=== PATIENT | male | born 1975 | race Caucasian/White ===

== ENCOUNTER → 2016-10-26 | Outpatient (CLI) | payer BC ==
--- NOTE | 2016-11-01 13:21 | P.ARTDOP ---
Arterial Doppler LOWER EXTREMITY ARTERIAL DOPPLER: DATE OF SERVICE: 10/26/2016 Reason for study: Leg pain. Doppler waveforms: Multiphasic bilaterally throughout. Pulse volume recording: Normal configuration. Pressure gradients: None. Ankle-brachial indices: Cannot exclude. Toe pressures: 158 on the right, 138 on the left Impression: Normal flow study. Suspect some degree of nonhemodynamically significant vessel wall calcification.
== END | disposition home or self-care (01) ==
LOC: RADUSWWP 08:53
PROVIDERS: ATTEND Internal Medicine Infectious Disease
DX: M79.605 Pain in left leg (principal); E11.621 Type 2 diabetes mellitus with foot ulcer; L97.529 Non-pressure chronic ulcer of other part of left foot with unspecified severity; E11.69 Type 2 diabetes mellitus with other specified complication; M86.8X7 Other osteomyelitis, ankle and foot
CPT/HCPCS: 93923

== ENCOUNTER → 2016-11-02 | Outpatient (CLI) | payer BC ==
--- NOTE | 2016-11-02 09:39 | MR ---
EXAMINATION TYPE: MR foot LT wo/w con DATE OF EXAM: 11/02/2016 9:22 AM COMPARISON: Prior MRI left foot May 24, 2016. HISTORY: osteomyelitis lt foot, ulcer 5th metatarsal area CONTRAST: Standard multiplanar, multisequence MRI departmental protocol utilizing 20 mL intravenous MultiHance gadolinium contrast. FINDINGS: Along plantar surface there is loss of normal subcutaneous fat with heterogeneous tissue th at does not show definitive postcontrast enhancement centered at fifth metatarsal head likely reflect ing chronic ulcer. Adjacent fifth metatarsal head shows some heterogeneous increased T2 signal or naresh ma most pronounced along the plantar surface seen best on axial image 5 and coronal image 22, some va dee enhancement at this level is felt present on coronal image 22 series 1001, acute osteomyelitis at this level does cannot be excluded. Well-defined cortical margin is also loss versus adjacent toes. There has been amputation of fifth toe involving proximal and distal phalanx. There is some heterogeneous fluid signal involving second and third metatarsals. No well-formed fluid collection is seen. Bone marrow signal intensity remainder of left foot is felt within normal limits without abnormal enhancement identified. Marked flexion in the second through fourth toes is redemon strated. IMPRESSION: Amputation fifth toe with chronic ulceration base of fifth metatarsal redemonstrated. Some cortical i rregularity with small area of osseous edema and vague enhancement involving the plantar aspect of th e fifth metatarsal head is felt present on current study, thus acute osteomyelitis at this level reyes ot be excluded.
== END | disposition home or self-care (01) ==
LOC: RADMRIMAIN 08:05
PROVIDERS: ATTEND Internal Medicine Infectious Disease
DX: E11.621 Type 2 diabetes mellitus with foot ulcer (principal); L97.529 Non-pressure chronic ulcer of other part of left foot with unspecified severity
CPT/HCPCS: 73720; A9577

== ENCOUNTER → 2017-01-08 | Outpatient (CLI) | payer BC ==
[2017-01-08 14:46] VITALS: BP 144/84; PULSE 87; RESP 14; TEMP 98.2; BMI 48.9
--- NOTE | 2017-01-08 15:18 | P.HPBAR ---
Bariatric H&P - History & Physicial H&P Date: 01/08/17 History & Physicial: Visit/CC: sleeve consult Patient initial contact: Initial weight: 172.773 kg Initial weight in pounds: 380.90 Height: 6 ft 2 in Initial BMI: 48.9 Last weight: Current weight: 172.773 kg Current weight in pounds: 380.90 Current BMI: 48.9 [place] body weight (based on NIH guidelines): 86.183 kg Excess body weight loss: 0.0% The patient is a 41 year-old M who presents for Bariatric Assessment. The patient presents today for sleeve gastrectomy preoperative consultation. He was initially seen approximately year ago. He is currently working on getting his preoperative progress notes together. He has not been scheduled for a psychological exam. The patient has a good understanding of the sleeve gastrectomy. His has had both lap band and sleeve gastrectomy. Review of Systems Constitutional: Reports as per HPI Past Medical History Past Medical History: Diabetes Mellitus, GERD/Reflux, Hypertension Additional Past Medical History / Comment(s): Wound lt foot (wound clinic treatment with complete 01/01/17), GERD History of Any Multi-Drug Resistant Organisms: MRSA Year Discovered:: 02/22/2016 MDRO Source:: left foot Past Surgical History: No Surgical Hx Reported Additional Past Surgical History / Comment(s): debridement in the groin area due to non healing wound, amputation of smallest toe on lt foot, amputation of the 4th toe on the right foot Past Anesthesia/Blood Transfusion Reactions: No Reported Reaction Past Psychological History: No Psychological Hx Reported Additional Psychological History / Comment(s): . Smoking Status: Never smoker Past Alcohol Use History: Occasional Past Drug Use History: None Reported - Past Family History Father Family Medical History: Cancer Mother Family Medical History: Coronary Artery Disease (CAD), Deep Vein Thrombosis (DVT ) Surgical - Exam Vital Signs Temp Pulse Resp BP 98.2 F 87 14 144/84 01/08/17 14:43 01/08/17 14:43 01/08/17 14:43 01/08/17 14:43 - General well developed, no distress - Eyes PERRL Bariatric Assessment & Plan Plan: The patient will undergo EGD in anticipation of his laparoscopic sleeve yesterday. I went over the risks and benefits of procedure. I discussed with possible conversion O procedure as well as injury to the stomach, liver and spleen. I've also discussed and possible issues such as staple line disruption , bleeding or perforation. Bariatric Checklist Checklist: Plan: Checklist: EGD: 1. Hiatal hernia: 2. H. Pylori: HgbA1c: Vitamin D: Smoking: Never smoker Primary care physician referral: [facility] Psychiatry clearance: Cardiology clearance: Sleep study: Diet journal: VTE risk score: VTE risk level: Rehab needs at discharge:
[2017-01-08 15:46] LABS: CH 27.9; CHCM 33.1; HCT 41.8 % (39.0-53.0); HDW 3.38; HGB 14.1 gm/dL (13.0-17.5); MCH 28.5 pg (25.0-35.0); MCHC 33.7 g/dL (31.0-37.0); MCV 84.7 fL (80.0-100.0); Mean Platelet Volume 8.8; RBC 4.93 m/uL (4.30-5.90); RDW 14.7 % (11.5-15.5); WBC 7.7 k/uL (3.8-10.6)
[2017-01-08 21:07] LABS: Hemoglobin A1C 5.5 % (4.2-6.1)
== END | disposition home or self-care (01) ==
LOC: BARWHC3 13:43
PROVIDERS: ATTEND Surgery
DX: Z01.818 Encounter for other preprocedural examination (principal); Z68.42 Body mass index [BMI] 45.0-49.9, adult; Z86.14 Personal history of Methicillin resistant Staphylococcus aureus infection
CPT/HCPCS: 36415; 83036; 85027; 93005; 99201

== ENCOUNTER → 2017-05-07 | Outpatient (CLI) | payer BC ==
[2017-05-07 11:59] VITALS: BMI 49.7
== END | disposition home or self-care (01) ==
LOC: BARWHC3 08:43
PROVIDERS: ATTEND Surgery
DX: E66.01 Morbid (severe) obesity due to excess calories (principal); Z71.3 Dietary counseling and surveillance; Z68.42 Body mass index [BMI] 45.0-49.9, adult
CPT/HCPCS: 97804

== ENCOUNTER → 2017-09-03 | Outpatient (CLI) | payer BC ==
[2017-09-03 13:58] VITALS: BP 119/77; PULSE 90; RESP 16; TEMP 98; BMI 44.1
--- NOTE | 2017-09-03 14:47 | P.HPBAR ---
Bariatric H&P - History & Physicial H&P Date: 09/03/17 History & Physicial: Visit/CC: sleeve follow up Patient initial contact: Initial weight: 172.773 kg Initial weight in pounds: 380.90 Height: 6 ft 2 in Initial BMI: 48.9 Last weight: 379 Current weight: 156.234 kg Current weight in pounds: 344.00 Current BMI: 44.1 [place] body weight (based on NIH guidelines): 86.183 kg Excess body weight loss: 19.3% The patient is a 42 year-old M who presents for Bariatric Assessment. Patient presents for postoperative follow-up. He's lost approximately 35 pounds since surgery. Has no complaints. He has had some minimal GERD. Past Medical History Past Medical History: Diabetes Mellitus, GERD/Reflux, Hypertension Additional Past Medical History / Comment(s): Wound lt foot (wound clinic treatment with complete 01/01/17)-current reblistered, GERD History of Any Multi-Drug Resistant Organisms: MRSA Year Discovered:: 02/22/2016 MDRO Source:: left foot Past Surgical History: Bariatric Surgery, Orthopedic Surgery Additional Past Surgical History / Comment(s): debridement in the groin area due to non healing wound, amputation of smallest toe on lt foot, amputation of the 4th toe on the right foot Past Anesthesia/Blood Transfusion Reactions: No Reported Reaction Past Psychological History: Depression Additional Psychological History / Comment(s): Dealing with depression seeing psycotherapist and on Zoloft with improvement Smoking Status: Never smoker Past Alcohol Use History: Occasional Past Drug Use History: None Reported - Past Family History Brother(s) Family Medical History: Cancer Father Family Medical History: Cancer Mother Family Medical History: Coronary Artery Disease (CAD), Deep Vein Thrombosis (DVT ) Surgical - Exam Vital Signs Temp Pulse Resp BP 98.0 F 90 16 119/77 09/03/17 13:54 09/03/17 13:54 09/03/17 13:54 09/03/17 13:54 - General well developed, no distress - Eyes PERRL - ENT normal pinna - Neck no masses - Respiratory normal expansion - Cardiovascular Rhythm: regular - Abdomen Abdomen: soft, non tender Bariatric Assessment & Plan Plan: Postoperative gastric sleeve. Patient is doing fairly well. He's had some minimal GERD. Bariatric Checklist Checklist: Plan: Checklist: EGD: 1. Hiatal hernia: 2. H. Pylori: HgbA1c: Vitamin D: Smoking: Never smoker Primary care physician referral: [facility] Psychiatry clearance: Cardiology clearance: Sleep study: Diet journal: VTE risk score: VTE risk level: Rehab needs at discharge:
== END | disposition home or self-care (01) ==
LOC: BARWHC3 13:29
PROVIDERS: ATTEND Surgery
DX: Z09 Encounter for follow-up examination after completed treatment for conditions other than malignant neoplasm (principal); E11.9 Type 2 diabetes mellitus without complications; K21.9 Gastro-esophageal reflux disease without esophagitis; I10 Essential (primary) hypertension; F32.9 Major depressive disorder, single episode, unspecified; Z98.84 Bariatric surgery status
CPT/HCPCS: 97803; 99211

== ENCOUNTER → 2017-10-22 | Outpatient (CLI) | payer BC ==
[2017-10-22 15:56] VITALS: BP 122/79; PULSE 87; RESP 16; TEMP 98.5; BMI 41.2
--- NOTE | 2017-10-22 17:13 | P.HPBAR ---
Bariatric H&P - History & Physicial H&P Date: 10/22/17 History & Physicial: Visit/CC: sleeve follow up Patient initial contact: Initial weight: 172.773 kg Initial weight in pounds: 380.90 Height: 6 ft 2 in Initial BMI: 48.9 Last weight: Current weight: 145.603 kg Current weight in pounds: 321.00 Current BMI: 41.2 [place] body weight (based on NIH guidelines): 86.183 kg Excess body weight loss: 31.3% The patient is a 42 year-old M who presents for Bariatric Assessment. The patient presents today for sleeve yesterday follow-up. He's lost another 12 pounds since last visit. He's had some minimal GERD. Past Medical History Past Medical History: Diabetes Mellitus, GERD/Reflux, Hypertension Additional Past Medical History / Comment(s): Wound lt foot (wound clinic treatment with complete 01/01/17)-current reblistered, GERD History of Any Multi-Drug Resistant Organisms: MRSA Year Discovered:: 02/22/2016 MDRO Source:: left foot Past Surgical History: Bariatric Surgery, Orthopedic Surgery Additional Past Surgical History / Comment(s): debridement in the groin area due to non healing wound, amputation of smallest toe on lt foot, amputation of the 4th toe on the right foot Past Anesthesia/Blood Transfusion Reactions: No Reported Reaction Past Psychological History: Depression Additional Psychological History / Comment(s): Dealing with depression seeing psycotherapist and on Zoloft with improvement Smoking Status: Never smoker Past Alcohol Use History: Occasional Past Drug Use History: None Reported - Past Family History Brother(s) Family Medical History: Cancer Father Family Medical History: Cancer Mother Family Medical History: Coronary Artery Disease (CAD), Deep Vein Thrombosis (DVT ) Surgical - Exam Vital Signs Temp Pulse Resp BP 98.5 F 87 16 122/79 10/22/17 15:54 10/22/17 15:54 10/22/17 15:54 10/22/17 15:54 - General well developed, no distress - Eyes PERRL - ENT normal pinna - Neck no masses - Respiratory normal expansion, normal respiratory effort - Cardiovascular Rhythm: regular - Abdomen Abdomen: soft, non tender Bariatric Assessment & Plan Plan: Patient is doing well status post sleeve yesterday. His GERD symptoms are minimal and observed. He'll follow-up in one month. Bariatric Checklist Checklist: Plan: Checklist: EGD: 1. Hiatal hernia: 2. H. Pylori: HgbA1c: Vitamin D: Smoking: Never smoker Primary care physician referral: [facility] Psychiatry clearance: Cardiology clearance: Sleep study: Diet journal: VTE risk score: VTE risk level: Rehab needs at discharge:
== END | disposition home or self-care (01) ==
LOC: BARWHC3 15:23
PROVIDERS: ATTEND Surgery
DX: Z09 Encounter for follow-up examination after completed treatment for conditions other than malignant neoplasm (principal); E11.9 Type 2 diabetes mellitus without complications; I10 Essential (primary) hypertension; F32.9 Major depressive disorder, single episode, unspecified; Z98.84 Bariatric surgery status
CPT/HCPCS: 99211

== ENCOUNTER → 2017-11-06 | Outpatient (CLI) | payer BC ==
[2017-11-06 08:19] LABS: Calcium 10.2 mg/dL (8.4-10.2); Potassium 5.9 mmol/L (3.5-5.1)
== END | disposition home or self-care (01) ==
LOC: LABWHC1 07:23
PROVIDERS: ATTEND Internal Medicine Infectious Disease
DX: E87.5 Hyperkalemia (principal)
CPT/HCPCS: 36415; 80048

== ENCOUNTER → 2017-11-14 | Outpatient (CLI) | payer SELFPAY ==
--- NOTE | 2017-11-15 07:08 | US ---
EXAMINATION TYPE: US venous doppler duplex LE DATE OF EXAM: 11/14/2017 2:22 PM COMPARISON: NONE CLINICAL HISTORY: M79.605 Pain in Left Leg. Wound lateral left foot x 2 weeks. Diabetes. Intermittent leg pain bilaterally LOWER EXTREMITY VENOUS INSUFFICIENCY SIDE PERFORMED: bilateral 1) Color flow is present and patency is documented in the following vessels. No DVT or SVT is noted . EIV Common Femoral Vein Deep Femoral Vein Femoral Vein Popliteal Vein Proximal Calf Veins Greater Saph Vein Upper Small Saph Vein 2) There is venous reflux noted at the following venous levels: right greater saph. vein, right CFV , left CFV, left small saph. vein, left popliteal vein mid and lower IMPRESSION: 1. No sonographic evidence of deep venous thrombosis or superficial venous thrombosis within the lowe r extremities. 2. Venous reflux indicating insufficiency within the right greater saphenous vein, right common femor al vein, left common femoral vein, left small saphenous vein in the left popliteal vein in its mid an d lower portions.
--- NOTE | 2017-11-21 10:20 | P.ARTDOP ---
Arterial Doppler LOWER EXTREMITY ARTERIAL DOPPLER: DATE OF SERVICE: 11/14/2017 Reason for study: Ulcer left foot. Doppler waveforms: Multiphasic bilaterally throughout. Pulse volume recording: Normal configuration. Pressure gradients: None. Ankle-brachial indices: Cannot occlude on the right 1.46 on the left.. Toe pressures: 144 on the right, 112 on the left Impression: Normal study in regards to flow. Falsely elevated ankle pressures probably related to nonhemodynamically significant calcific wall disease..
== END | disposition home or self-care (01) ==
LOC: RADUSWWP 13:46
PROVIDERS: ATTEND Internal Medicine Infectious Disease
DX: I87.2 Venous insufficiency (chronic) (peripheral) (principal); M79.605 Pain in left leg
CPT/HCPCS: 93923; 93970

== ENCOUNTER → 2017-11-19 | Outpatient (CLI) | payer BC ==
[2017-11-19 13:17] VITALS: BP 140/87; PULSE 73; RESP 16; TEMP 98.1; BMI 40.3
--- NOTE | 2017-11-19 15:54 | P.HPBAR ---
Bariatric H&P - History & Physicial H&P Date: 11/19/17 History & Physicial: Visit/CC: sleeve follow-up Patient initial contact: Initial weight: 172.773 kg Initial weight in pounds: 380.90 Height: 6 ft 2 in Initial BMI: 48.9 Last weight: Current weight: 142.428 kg Current weight in pounds: 314.00 Current BMI: 40.3 [place] body weight (based on NIH guidelines): 86.183 kg Excess body weight loss: 35.0% The patient is a 42 year-old M who presents for Bariatric Assessment. Patient resents today for sleeve gastric a fall. He is doing quite well. He has had some minimal GERD. Past Medical History Past Medical History: Diabetes Mellitus, GERD/Reflux, Hypertension Additional Past Medical History / Comment(s): Wound lt foot (wound clinic treatment with complete 01/01/17)-current reblistered, GERD History of Any Multi-Drug Resistant Organisms: MRSA Year Discovered:: 02/22/2016 MDRO Source:: left foot Past Surgical History: Bariatric Surgery, Orthopedic Surgery Additional Past Surgical History / Comment(s): debridement in the groin area due to non healing wound, amputation of smallest toe on lt foot, amputation of the 4th toe on the right foot Past Anesthesia/Blood Transfusion Reactions: No Reported Reaction Past Psychological History: Depression Additional Psychological History / Comment(s): Dealing with depression seeing psycotherapist and on Zoloft with improvement Smoking Status: Never smoker Past Alcohol Use History: Occasional Past Drug Use History: None Reported - Past Family History Brother(s) Family Medical History: Cancer Father Family Medical History: Cancer Mother Family Medical History: Coronary Artery Disease (CAD), Deep Vein Thrombosis (DVT ) Surgical - Exam Vital Signs Temp Pulse Resp BP 98.1 F 73 16 140/87 11/19/17 13:14 11/19/17 13:14 11/19/17 13:14 11/19/17 13:14 - General well developed, no distress - Eyes PERRL - ENT normal pinna - Neck no masses - Respiratory normal expansion - Cardiovascular Rhythm: regular - Abdomen Abdomen: soft, non tender Bariatric Assessment & Plan Plan: The patient is status post sleeve gastrectomy. He is doing quite well. He'll follow-up in 4 weeks. His GERD is minimal and will be observed. Bariatric Checklist Checklist: Plan: Checklist: EGD: 1. Hiatal hernia: 2. H. Pylori: HgbA1c: Vitamin D: Smoking: Never smoker Primary care physician referral: [facility] Psychiatry clearance: Cardiology clearance: Sleep study: Diet journal: VTE risk score: VTE risk level: Rehab needs at discharge:
== END | disposition home or self-care (01) ==
LOC: BARWHC3 11:57
PROVIDERS: ATTEND Surgery
DX: Z09 Encounter for follow-up examination after completed treatment for conditions other than malignant neoplasm (principal); E66.01 Morbid (severe) obesity due to excess calories; K21.9 Gastro-esophageal reflux disease without esophagitis; E11.9 Type 2 diabetes mellitus without complications; I10 Essential (primary) hypertension; F32.9 Major depressive disorder, single episode, unspecified; F10.20 Alcohol dependence, uncomplicated; Z98.890 Other specified postprocedural states; Z98.84 Bariatric surgery status; Z68.41 Body mass index [BMI] 40.0-44.9, adult
CPT/HCPCS: 97803; 99211

== ENCOUNTER → 2017-12-17 | Outpatient (CLI) | payer BC ==
[2017-12-17 13:05] VITALS: BP 125/80; PULSE 77; RESP 16; TEMP 98.2; BMI 39.1
--- NOTE | 2017-12-17 14:38 | P.HPBAR ---
Bariatric H&P - History & Physicial H&P Date: 12/17/17 History & Physicial: Visit/CC: sleeve follow-up Patient initial contact: Initial weight: 172.773 kg Initial weight in pounds: 380.90 Height: 6 ft 2 in Initial BMI: 48.9 Last weight: Current weight: 138.346 kg Current weight in pounds: 305.00 Current BMI: 39.1 [place] body weight (based on NIH guidelines): 86.183 kg Excess body weight loss: 39.7% The patient is a 42 year-old M who presents for Bariatric Assessment. The patient presents today for sleeve gastrectomy follow-up. He has done well. He lost another 10 pounds. He's had some minimal GERD. Past Medical History Past Medical History: Diabetes Mellitus, GERD/Reflux, Hypertension Additional Past Medical History / Comment(s): Wound lt foot (wound clinic treatment with complete 01/01/17)-current reblistered, GERD History of Any Multi-Drug Resistant Organisms: MRSA Year Discovered:: 02/22/2016 MDRO Source:: left foot Past Surgical History: Bariatric Surgery, Orthopedic Surgery Additional Past Surgical History / Comment(s): debridement in the groin area due to non healing wound, amputation of smallest toe on lt foot, amputation of the 4th toe on the right foot Past Anesthesia/Blood Transfusion Reactions: No Reported Reaction Smoking Status: Never smoker - Past Family History Brother(s) Family Medical History: Cancer Father Family Medical History: Cancer Mother Family Medical History: Coronary Artery Disease (CAD), Deep Vein Thrombosis (DVT ) Surgical - Exam Vital Signs Temp Pulse Resp BP 98.2 F 77 16 125/80 12/17/17 13:03 12/17/17 13:03 12/17/17 13:03 12/17/17 13:03 - General well developed, no distress - Eyes PERRL - ENT normal pinna, normal mucosa - Neck no masses - Respiratory normal expansion - Cardiovascular Rhythm: regular - Abdomen Abdomen: soft, non tender Bariatric Assessment & Plan Plan: Sessile sleeve yesterday. Patient is doing quite well. His weight loss has been excellent. His GERD is minimal and will be observed. He will follow-up in one month. Bariatric Checklist Checklist: Plan: Checklist: EGD: 1. Hiatal hernia: 2. H. Pylori: HgbA1c: Vitamin D: Smoking: Never smoker Primary care physician referral: [facility] Psychiatry clearance: Cardiology clearance: Sleep study: Diet journal: VTE risk score: VTE risk level: Rehab needs at discharge:
== END | disposition home or self-care (01) ==
LOC: BARWHC3 12:42
PROVIDERS: ATTEND Surgery
DX: Z48.815 Encounter for surgical aftercare following surgery on the digestive system (principal); K21.9 Gastro-esophageal reflux disease without esophagitis; Z98.84 Bariatric surgery status
CPT/HCPCS: 99211

== ENCOUNTER → 2018-02-11 | Outpatient (CLI) | payer BC ==
[2018-02-11 14:14] VITALS: BMI 39.0
[2018-02-11 14:20] VITALS: BP 117/81; PULSE 71; TEMP 98.5
--- NOTE | 2018-02-11 15:58 | P.HPBAR ---
Bariatric H&P - History & Physicial H&P Date: 02/11/18 History & Physicial: Visit/CC: six month follow up Patient initial contact: Initial weight: 172.773 kg Initial weight in pounds: 380.90 Height: 6 ft 2 in Initial BMI: 48.9 Last weight: 305 Current weight: 137.983 kg Current weight in pounds: 304.20 Current BMI: 39.0 [place] body weight (based on NIH guidelines): 86.183 kg Excess body weight loss: 40.1% The patient is a 42 year-old M who presents for Bariatric Assessment. Patient presents today for sleeve gastric follow-up. He's had some minimal GERD. He has no real complaints. His weight has remained stable. Past Medical History Past Medical History: Diabetes Mellitus, GERD/Reflux, Hypertension Additional Past Medical History / Comment(s): Wound lt foot (wound clinic treatment with complete 01/01/17)-current reblistered, GERD History of Any Multi-Drug Resistant Organisms: MRSA Year Discovered:: 02/22/2016 MDRO Source:: left foot Past Surgical History: Bariatric Surgery, Orthopedic Surgery Additional Past Surgical History / Comment(s): debridement in the groin area due to non healing wound, amputation of smallest toe on lt foot, amputation of the 4th toe on the right foot Past Anesthesia/Blood Transfusion Reactions: No Reported Reaction Past Psychological History: Depression Additional Psychological History / Comment(s): Dealing with depression seeing psycotherapist and on Zoloft with improvement Smoking Status: Never smoker Past Alcohol Use History: Occasional Past Drug Use History: None Reported - Past Family History Brother(s) Family Medical History: Cancer Father Family Medical History: Cancer Mother Family Medical History: Coronary Artery Disease (CAD), Deep Vein Thrombosis (DVT ) Surgical - Exam Vital Signs Temp Pulse BP 98.5 F 71 117/81 02/11/18 14:18 02/11/18 14:18 02/11/18 14:18 - General well developed, no distress - Eyes PERRL - Abdomen Abdomen: soft, non tender Bariatric Assessment & Plan Plan: Status post sleeve gastrectomy. Patient is doing fairly well. He'll see the dietitian today in order to improve his weight loss. His current BMI is 39. Bariatric Checklist Checklist: Plan: Checklist: EGD: 1. Hiatal hernia: 2. H. Pylori: HgbA1c: Vitamin D: Smoking: Never smoker Primary care physician referral: [facility] Psychiatry clearance: Cardiology clearance: Sleep study: Diet journal: VTE risk score: VTE risk level: Rehab needs at discharge:
== END | disposition home or self-care (01) ==
LOC: BARWHC3 13:16
PROVIDERS: ATTEND Surgery
DX: Z09 Encounter for follow-up examination after completed treatment for conditions other than malignant neoplasm (principal); K21.9 Gastro-esophageal reflux disease without esophagitis; E66.01 Morbid (severe) obesity due to excess calories; E11.9 Type 2 diabetes mellitus without complications; I10 Essential (primary) hypertension; F32.9 Major depressive disorder, single episode, unspecified; S91.302D Unspecified open wound, left foot, subsequent encounter; Z98.84 Bariatric surgery status; Z98.890 Other specified postprocedural states; Z68.39 Body mass index [BMI] 39.0-39.9, adult; Z89.422 Acquired absence of other left toe(s); Z89.421 Acquired absence of other right toe(s)
CPT/HCPCS: 97803; 99211

== ENCOUNTER → 2018-03-18 | Outpatient (CLI) | payer BC ==
--- NOTE | 2018-03-18 16:29 | P.HPBAR ---
Bariatric H&P - History & Physicial H&P Date: 03/18/18 History & Physicial: Visit/CC: Patient initial contact: Initial weight: 172.773 kg Initial weight in pounds: Height: Initial BMI: Last weight: 304 Current weight: 298 Current weight in pounds: Current BMI: [place] body weight (based on NIH guidelines): Excess body weight loss: The patient is a 42 year-old M who presents for Bariatric Assessment. Patient presents today for sleeve gastric a fall. He's had some minimal GERD symptoms. He is an excellent weight loss. Past Medical History Past Medical History: Diabetes Mellitus, GERD/Reflux, Hypertension Additional Past Medical History / Comment(s): Wound lt foot (wound clinic treatment with complete 01/01/17)-current reblistered, GERD History of Any Multi-Drug Resistant Organisms: MRSA Year Discovered:: 02/22/2016 MDRO Source:: left foot Past Surgical History: Bariatric Surgery, Orthopedic Surgery Additional Past Surgical History / Comment(s): debridement in the groin area due to non healing wound, amputation of smallest toe on lt foot, amputation of the 4th toe on the right foot Past Anesthesia/Blood Transfusion Reactions: No Reported Reaction Past Psychological History: Depression Additional Psychological History / Comment(s): Dealing with depression seeing psycotherapist and on Zoloft with improvement Smoking Status: Never smoker Past Alcohol Use History: Occasional Past Drug Use History: None Reported - Past Family History Brother(s) Family Medical History: Cancer Father Family Medical History: Cancer Mother Family Medical History: Coronary Artery Disease (CAD), Deep Vein Thrombosis (DVT ) Surgical - Exam - General well developed, no distress - Abdomen Abdomen: soft, non tender Bariatric Assessment & Plan Plan: The patient is doing well. His GERD symptoms are minimal and will be observed. He'll follow-up in one month. Bariatric Checklist Checklist: Plan: Checklist: EGD: 1. Hiatal hernia: 2. H. Pylori: HgbA1c: Vitamin D: Smoking: Never smoker Primary care physician referral: [facility] Psychiatry clearance: Cardiology clearance: Sleep study: Diet journal: VTE risk score: VTE risk level: Rehab needs at discharge:
[2018-03-18 17:30] VITALS: BP 113/72; PULSE 63; TEMP 97.7; BMI 38.2
== END | disposition home or self-care (01) ==
LOC: BARWHC3 13:18
PROVIDERS: ATTEND Surgery
DX: Z48.815 Encounter for surgical aftercare following surgery on the digestive system (principal); K21.9 Gastro-esophageal reflux disease without esophagitis; Z98.84 Bariatric surgery status
CPT/HCPCS: 99211

== ENCOUNTER → 2018-06-24 | Outpatient (CLI) | payer BC ==
[2018-06-24 14:48] VITALS: BP 152/90; PULSE 61; RESP 16; TEMP 98.9; BMI 35.4
--- NOTE | 2018-06-24 15:12 | P.HPBAR ---
Bariatric H&P - History & Physicial H&P Date: 06/24/18 History & Physicial: Visit/CC: sleeve follow-up Patient initial contact: Initial weight: 172.773 kg Initial weight in pounds: 380.90 Height: 6 ft 2 in Initial BMI: 48.9 Last weight: 295 Current weight: 125.191 kg Current weight in pounds: 276.00 Current BMI: 35.4 [place] body weight (based on NIH guidelines): 86.183 kg Excess body weight loss: 54.9% The patient is a 42 year-old M who presents for Bariatric Assessment. Patient presents today for sleeve gastrectomy fall. He's had some minimal GERD. He's had excellent weight loss. His current BMI is 35. Past Medical History Past Medical History: Diabetes Mellitus, GERD/Reflux, Hypertension Additional Past Medical History / Comment(s): Wound lt foot (wound clinic treatment with complete 01/01/17)-current reblistered, GERD History of Any Multi-Drug Resistant Organisms: MRSA Year Discovered:: 02/22/2016 MDRO Source:: left foot Past Surgical History: Bariatric Surgery, Orthopedic Surgery Additional Past Surgical History / Comment(s): debridement in the groin area due to non healing wound, amputation of smallest toe on lt foot, amputation of the 4th toe on the right foot Past Anesthesia/Blood Transfusion Reactions: No Reported Reaction Past Psychological History: Depression Additional Psychological History / Comment(s): Dealing with depression seeing psycotherapist and on Zoloft with improvement Smoking Status: Never smoker Past Alcohol Use History: Occasional Past Drug Use History: None Reported - Past Family History Brother(s) Family Medical History: Cancer Father Family Medical History: Cancer Mother Family Medical History: Coronary Artery Disease (CAD), Deep Vein Thrombosis (DVT ) Surgical - Exam Vital Signs Temp Pulse Resp BP 98.9 F 61 16 152/90 06/24/18 14:45 06/24/18 14:45 06/24/18 14:45 06/24/18 14:45 - General well developed, no distress - Eyes PERRL - ENT normal pinna - Neck no masses - Respiratory normal expansion - Cardiovascular Rhythm: regular - Abdomen Abdomen: soft, non tender Bariatric Assessment & Plan Plan: Status post sleeve gastrectomy. Patient did quite well. His GERD is minimal and will be observed. Bariatric Checklist Checklist: Plan: Checklist: EGD: 1. Hiatal hernia: 2. H. Pylori: HgbA1c: Vitamin D: Smoking: Never smoker Primary care physician referral: [facility] Psychiatry clearance: Cardiology clearance: Sleep study: Diet journal: VTE risk score: VTE risk level: Rehab needs at discharge:
== END ==
LOC: BARWHC3 14:15
PROVIDERS: ATTEND Surgery
DX: Z48.815 Encounter for surgical aftercare following surgery on the digestive system (principal); K21.9 Gastro-esophageal reflux disease without esophagitis; Z98.84 Bariatric surgery status
CPT/HCPCS: 99211

== ENCOUNTER → 2018-08-12 | Outpatient (CLI) | payer BC ==
[2018-08-12 13:23] VITALS: BP 129/76; PULSE 68; TEMP 98.1; BMI 36.1
[2018-08-12 15:14] LABS: HCT 45.3 % (39.0-53.0); HGB 14.6 gm/dL (13.0-17.5); MCHC 32.3 g/dL (31.0-37.0); MCV 89.9 fL (80.0-100.0); Mean Platelet Volume 8.5; Platelet Count 104 k/uL (150-450); RBC 5.04 m/uL (4.30-5.90); RDW 14.3 % (11.5-15.5)
--- NOTE | 2018-08-12 15:28 | P.HPBAR ---
Bariatric H&P - History & Physicial H&P Date: 08/12/18 History & Physicial: Visit/CC: one year follow up Patient initial contact: Initial weight: 172.773 kg Initial weight in pounds: 380.90 Height: 6 ft 2 in Initial BMI: 48.9 Last weight: Current weight: 127.459 kg Current weight in pounds: 281.00 Current BMI: 36.1 [place] body weight (based on NIH guidelines): 86.183 kg Excess body weight loss: 52.3% The patient is a 43 year-old M who presents for Bariatric Assessment. The patient presents today for sleeve gastrectomy follow-up. He's had some mild GERD symptoms. He states his arthritis has improved. Past Medical History Past Medical History: Diabetes Mellitus, GERD/Reflux, Hypertension Additional Past Medical History / Comment(s): Wound lt foot (wound clinic treatment with complete 01/01/17)-current reblistered, GERD History of Any Multi-Drug Resistant Organisms: MRSA Year Discovered:: 02/22/2016 MDRO Source:: left foot Past Surgical History: Bariatric Surgery, Orthopedic Surgery Additional Past Surgical History / Comment(s): debridement in the groin area due to non healing wound, amputation of smallest toe on lt foot, amputation of the 4th toe on the right foot Past Anesthesia/Blood Transfusion Reactions: No Reported Reaction Past Psychological History: Depression Additional Psychological History / Comment(s): Dealing with depression seeing psycotherapist and on Zoloft with improvement Smoking Status: Never smoker Past Alcohol Use History: Occasional Past Drug Use History: None Reported - Past Family History Brother(s) Family Medical History: Cancer Father Family Medical History: Cancer Mother Family Medical History: Coronary Artery Disease (CAD), Deep Vein Thrombosis (DVT ) Surgical - Exam Vital Signs Temp Pulse BP 98.1 F 68 129/76 08/12/18 13:21 08/12/18 13:21 08/12/18 13:21 - General well developed, no distress - Eyes PERRL - ENT normal pinna - Neck no masses - Respiratory normal expansion - Cardiovascular Rhythm: regular - Abdomen Abdomen: soft, non tender Results - Labs 08/12/18 14:24 Abnormal Lab Results - Last 24 Hours (Table) 08/12/18 Range/Units 14:24 Plt Count 104 L (150-450) k/uL Bariatric Assessment & Plan Plan: Status post sleeve gastrectomy. Patient has an excellent weight loss. His weight loss has stabilized. His GERD is minimal old observed. His arthritis is improving. Bariatric Checklist Checklist: Plan: Checklist: EGD: 1. Hiatal hernia: 2. H. Pylori: HgbA1c: Vitamin D: Smoking: Never smoker Primary care physician referral: ijeoma Psychiatry clearance: Cardiology clearance: Sleep study: Diet journal: VTE risk score: VTE risk level: Rehab needs at discharge:
[2018-08-12 20:06] LABS: Albumin 4.3 g/dL (3.80-4.90); Albumin/Globulin Ratio 1.79 (1.20-2.10); Anion Gap 6.7 mmol/L (4.00-12.00); Calcium 9.2 mg/dL (8.7-10.3); Carbon Dioxide 26.3 mmol/L (21.6-31.8); Globulin 2.4 g/dL (2.1-3.7); Potassium 5.7 mmol/L (3.5-5.5); Total Bilirubin 0.3 mg/dL (0.2-1.2); Total Protein 6.7 g/dL (6.2-8.2)
[2018-08-12 20:11] LABS: Vitamin D 25 Hydroxy 41.9 ng/mL (30.0-100.0)
== END | disposition home or self-care (01) ==
LOC: BARWHC3 12:25
PROVIDERS: ATTEND Surgery
DX: Z09 Encounter for follow-up examination after completed treatment for conditions other than malignant neoplasm (principal); K21.9 Gastro-esophageal reflux disease without esophagitis; E66.01 Morbid (severe) obesity due to excess calories; M19.90 Unspecified osteoarthritis, unspecified site; F32.9 Major depressive disorder, single episode, unspecified; E44.0 Moderate protein-calorie malnutrition; E55.9 Vitamin D deficiency, unspecified; Z98.84 Bariatric surgery status; Z98.890 Other specified postprocedural states; Z89.422 Acquired absence of other left toe(s); Z89.421 Acquired absence of other right toe(s); Z68.36 Body mass index [BMI] 36.0-36.9, adult
CPT/HCPCS: 36415; 80053; 82306; 82607; 84134; 84443; 85027; 97803; 99211

== ENCOUNTER → 2022-07-27 | Outpatient (CLI) | payer OTHER ==
--- NOTE | 2022-07-28 10:35 | CA ---
Transthoracic Echo Report Name: Xavier Odonnell Age: 47 Gender: M : 1975 Exam Date: 07/27/2022 14:18 Exam Location: [facility] Ht (in): 75 Wt (lb): 304 Ordering Physician: Donald Beasley MD Attending/Referring Phys: Maria Ines Green [facility] Wealth Management Director Rasheeda White RDCS Procedure CPT: Indications: R00.1 bradycardia Cardiac Hx: Technical Quality: Good Contrast 1: Total Dose (mL): Contrast 2: Total Dose (mL): MEASUREMENTS (Male / Female) Normal Values 2D ECHO LV Diastolic Diameter PLAX 5.7 cm 4.2 - 5.9 / 3.9 - 5.3 cm LV Systolic Diameter PLAX 3.6 cm IVS Diastolic Thickness 1.2 cm 0.6 - 1.0 / 0.6 - 0.9 cm LVPW Diastolic Thickness 1.3 cm 0.6 - 1.0 / 0.6 - 0.9 cm LV Relative Wall Thickness 0.4 RV Internal Dim ED PLAX 3.2 cm LA Systolic Diameter LX 4.1 cm 3.0 - 4.0 / 2.7 - 3.8 cm LA Volume 115.6 cm??? 18 - 58 / 22 - 52 cm??? M-MODE Aortic Root Diameter MM 3.2 cm MV E Point Septal Separation 0.4 cm AV Cusp Separation MM 2.4 cm DOPPLER AV Peak Velocity 163.8 cm/s AV Peak Gradient 10.7 mmHg MV Area PHT 4.2 cm??? Mitral E Point Velocity 85.1 cm/s Mitral A Point Velocity 74.0 cm/s Mitral E to A Ratio 1.2 MV Deceleration Time 181.7 ms MV E' Velocity 7.9 cm/s Mitral E to MV E' Ratio 10.8 FINDINGS Left Ventricle Left ventricular ejection fraction is estimated at 60-65 %. Left ventricular cavity size normal. Borderline left ventricular hypertrophy. Right Ventricle Normal right ventricular size and function. Unable to estimate the right ventricular systolic pressure. Right Atrium Normal right atrial size. Left Atrium Mildly increased left atrial diameter. Severely increased left atrial volume. Mildly increased left atrial area. No evidence for an atrial septal defect. Mitral Valve Structurally normal mitral valve. No mitral stenosis, regurgitation or prolapse. Aortic Valve AOV looks bicuspid. No aortic valve stenosis or regurgitation. Tricuspid Valve Structurally normal tricuspid valve. Pulmonic Valve Structurally normal pulmonic valve. Pericardium Normal pericardium. No pericardial effusion. Aorta Normal size aortic root and proximal ascending aorta. CONCLUSIONS Normal left ventricular ejection fraction 60-65% Borderline left ventricular wall thickness Mild left atrial dilation Cannot rule out bicuspid valve however no significant aortic stenosis or aortic regurgitation No pericardial effusion Previewed by: Dr. Ari Abdul DO (Electronically Signed) Final Date: 28 July 2022 10:34
== END | disposition home or self-care (01) ==
LOC: RADECHMAIN 13:52
PROVIDERS: ATTEND Family Medicine
DX: R00.1 Bradycardia, unspecified (principal); I51.7 Cardiomegaly
CPT/HCPCS: 93306

== ENCOUNTER 2024-08-17 20:04 | Inpatient (IN) | payer BC, OTHER ==
--- NOTE | 2024-08-17 20:29 | ED ---
Recheck HPI - General Chief Complaint: Recheck/Abnormal Lab/Rx Stated Complaint: kidney doctor sent because GFR is 7.2 Time Seen by Provider: 08/17/24 20:20 Source: patient, family, RN notes reviewed Mode of arrival: ambulatory Limitations: no limitations - History of Present Illness Initial Comments: This is a 49-year-old male with a history of type 2 diabetes, hypertension, and kidney disease presenting to the emergency department with abnormal labs. Patient states that he had laboratory studies drawn by his associate sales representative, Dr. Abel, which revealed a severely low GFR of less than 10. Patient had repeat labs ordered by his primary care provider Sunday which again revealed low GFR and was prompted to report to the emergency department for further evaluation. Patient states that he is scheduled in 2 weeks for port placement to begin dialysis. States that he is having mild pain in bilateral flank. States he has been having edema of his bilateral lower extremities. He denies chest pain, shortness of breath, difficulty breathing, headaches, abdominal pain, nausea or vomiting. - Related Data Home Medications Medication Instructions Recorded Confirmed lisinopriL [Prinivil] 20 mg PO HS 04/25/15 08/12/18 Atorvastatin [Lipitor] 20 mg PO HS 05/09/16 08/12/18 Multivitamins, Thera [Multivitamin 1 tab PO DAILY 05/09/16 08/12/18 (formulary)] metFORMIN HCL [Glucophage] 1,000 mg PO BID 10/19/16 08/12/18 ALPRAZolam [Xanax] 0.25 mg PO BID PRN 07/16/17 08/12/18 Sertraline HCl [Zoloft] 100 mg PO BID 08/13/17 08/12/18 amLODIPine BESYLATE [Norvasc] 10 mg PO DAILY 08/13/17 08/12/18 Previous Rx's Medication Instructions Recorded Ondansetron [Zofran] 4 mg PO Q8HR PRN #30 tab 08/14/17 Sodium Polystyrene Sulfonate 15 gm PO DAILY #240 ml 11/05/17 [Kayexalate] Moxifloxacin HCl [Avelox] 400 mg PO DAILY #30 tab 11/12/17 Allergies Allergy/AdvReac Type Severity Reaction Status Date / Time No Known Allergies Allergy Verified 08/17/24 20:14 Review of Systems ROS Statement: Those systems with pertinent positive or pertinent negative responses have been documented in the HPI. ROS Other: All systems not noted in ROS Statement are negative. Past Medical History Past Medical History: Diabetes Mellitus, GERD/Reflux, Hypertension Additional Past Medical History / Comment(s): Wound lt foot (wound clinic treatment with Dr.Brooks gonzalez 01/01/17)-current reblistered, GERD History of Any Multi-Drug Resistant Organisms: MRSA Date of last positivie culture/infection: 02/22/2016 MDRO Source:: left foot Past Surgical History: Bariatric Surgery, Orthopedic Surgery Additional Past Surgical History / Comment(s): debridement in the groin area due to non healing wound, amputation of smallest toe on lt foot, amputation of the 4th toe on the right foot Past Anesthesia/Blood Transfusion Reactions: No Reported Reaction Past Psychological History: Depression Smoking Status: Never smoker Past Alcohol Use History: Occasional Past Drug Use History: None Reported - Past Family History Brother(s) Family Medical History: Cancer Father Family Medical History: Cancer Mother Family Medical History: Coronary Artery Disease (CAD), Deep Vein Thrombosis (DVT) General Exam Limitations: no limitations General appearance: alert, in no apparent distress Eye exam: Present: normal appearance, PERRL, EOMI. Absent: scleral icterus, conjunctival injection, periorbital swelling ENT exam: Present: normal exam, mucous membranes moist Respiratory exam: Present: normal lung sounds bilaterally. Absent: respiratory distress, wheezes, rales, rhonchi, stridor Cardiovascular Exam: Present: regular rate, normal rhythm, normal heart sounds. Absent: systolic murmur, diastolic murmur, rubs, gallop, clicks GI/Abdominal exam: Present: soft, normal bowel sounds. Absent: distended, tenderness, guarding, rebound, rigid Extremities exam: Present: normal inspection, full ROM, normal capillary refill, other (bilateral lower extremity edema). Absent: tenderness, pedal edema, joint swelling, calf tenderness Back exam: Present: normal inspection, CVA tenderness (R), CVA tenderness (L) Skin exam: Present: warm, dry, intact, normal color. Absent: rash Course Vital Signs 08/17/24 08/17/24 08/17/24 20:12 21:30 22:10 Temperature 98 F Pulse Rate 77 71 68 Respiratory 18 16 16 Rate Blood Pressure 151/91 148/80 131/75 O2 Sat by Pulse 98 99 98 Oximetry Medical Decision Making - Medical Decision Making Was pt. sent in by a medical professional or institution (, ROD, BEDSPRING ASSEMBLER, urgent care, hospital, or senior living...) When possible be specific @ -Patient was advised by nephrology and primary care provider to report to the emergency department for elevated kidney enzymes including severely low GFR Did you speak to anyone other than the patient for history (EMS, parent, family, police, friend...)? What history was obtained from this source @ -No Did you review nursing and triage notes (agree or disagree)? Why? @ -I reviewed and agree with nursing and triage notes Were old charts reviewed (outside hosp., previous admission, EMS record, old EKG, old radiological studies, urgent care reports/EKG's, senior living records)? Report findings @ -No old charts were reviewed Differential Diagnosis (chest pain, altered mental status, abdominal pain women, abdominal pain men, vaginal bleeding, weakness, fever, dyspnea, syncope, headache, dizziness, GI bleed, back pain, seizure, CVA, palpatations, mental health, musculoskeletal)? @ -Electrolyte abnormality, urinary tract infection, pyelonephritis, nephrolithiasis, this is not all inclusive list EKG interpreted by me (3pts min.). @ -Completed at 2057 sinus rhythm with ventricular rate 69, parable 184, QRS 90, QTc 441. No acute signs of ischemia. X-rays interpreted by me (1pt min.). @ -None done CT interpreted by me (1pt min.). @ -None done U/S interpreted by me (1pt. min.). @ -None done What testing was considered but not performed or refused? (CT, X-rays, U/S, labs)? Why? @ -None What meds were considered but not given or refused? Why? @ -None Did you discuss the management of the patient with other professionals (professionals i.e. ROD Collado, BEDSPRING ASSEMBLER, lab, RT, psych nurse, social media community manager, pocket assembler, teacher, parcel post officer, casework manager)? Give summary @ -Spoke with sound internal medicine physician, Dr. Talbert, in regard to the patient's laboratory studies concerning for severely elevated serum creatinine and low GFR. Patient is accepted for admission with nephrology on consult. Was smoking cessation discussed for >3mins.? @ -No Was critical care preformed (if so, how long)? @ -No Were there social determinants of health that impacted care today? How? (Homelessness, low income, unemployed, alcoholism, drug addiction, transportation, low edu. Level, literacy, decrease access to med. care, senior care, rehab)? @ -No Was there de-escalation of care discussed even if they declined (Discuss DNR or withdrawal of care, Hospice)? DNR status @ -No What co-morbidities impacted this encounter? (DM, HTN, Smoking, COPD, CAD, Cancer, CVA, ARF, Chemo, Hep., AIDS, mental health diagnosis, sleep apnea, morbid obesity)? @ -Diabetes, hypertension Was patient admitted / discharged? Hospital course, mention meds given and route, prescriptions, significant lab abnormalities, going to OR and other pert inent info. @ -Admitted. 49-year-old male with abnormal labs. On my evaluation the patient is resting company no signs acute distress. Is noted to have mild CVA tenderness on palpation. He also has lower extremity peripheral edema. EKG sinus rhythm. Patient's laboratory studies are remarkable for anemia that appears chronic with a hemoglobin of 10.4, hematocrit of 33.3 and low platelets of 123. Patient also has hyperphosphatemia of 9.5, hypocalcemia 6.4, creatinine 8.22 and BUN of 78. Urinalysis remarkable for 3+ protein and 2+ glucose. Patient will be admitted to internal medicine with nephrology on consult for further evaluation of chronic kidney disease. Case discussed with Dr. Dye Undiagnosed new problem with uncertain prognosis? @ -No Drug Therapy requiring intensive monitoring for toxicity (Heparin, Nitro, Insulin, Cardizem)? @ -No Were any procedures done? @ -No Diagnosis/symptom? @ -Elevated serum creatinine, hyperphosphatemia, hypocalcemia, low GFR Acute, or Chronic, or Acute on Chronic? @ -acute Uncomplicated (without systemic symptoms) or Complicated (systemic symptoms)? @ -Complicated Side effects of treatment? @ -No Exacerbation, Progression, or Severe Exacerbation? @ -No Poses a threat to life or bodily function? How? (Chest pain, [place], [place], pneumonia, PE, COPD, DKA, ARF, appy, cholecystitis, CVA, Diverticulitis, Homicidal, Suicidal, threat to staff... and all critical care pts) @ -No - Lab Data Result diagrams: 08/17/24 20:42 08/17/24 20:42 Lab Results 08/17/24 08/17/24 08/17/24 Range/Units 20:42 20:42 21:34 WBC 6.5 (3.8-10.6) k/uL RBC 3.58 L (4.30-5.90) m/uL Hgb 10.4 L (13.0-17.5) gm/dL Hct 33.3 L (39.0-53.0) % MCV 92.9 (80.0-100.0) fL MCH 29.1 (25.0-35.0) pg MCHC 31.3 (31.0-37.0) g/dL RDW 15.3 (11.5-15.5) % Plt Count 120 L (150-450) k/uL MPV 9.1 Neutrophils % 70 % Lymphocytes % 18 % Monocytes % 6 % Eosinophils % 3 % Basophils % 1 % Neutrophils # 4.6 (1.3-7.7) k/uL Lymphocytes # 1.2 (1.0-4.8) k/uL Monocytes # 0.4 (0-1.0) k/uL Eosinophils # 0.2 (0-0.7) k/uL Basophils # 0.0 (0-0.2) k/uL Hypochromasia Slight Sodium 143 (137-145) mmol/L Potassium 4.7 (3.5-5.1) mmol/L Chloride 122 H (98-107) mmol/L Carbon Dioxide 11 L (22-30) mmol/L Anion Gap 10 mmol/L BUN 78 H (9-20) mg/dL Creatinine 8.22 H* (0.66-1.25) mg/dL Est GFR (CKD-EPI)AfAm 8 (>60 ml/min/1.73 sqM) Est GFR (CKD-EPI)NonAf 7 (>60 ml/min/1.73 sqM) Glucose 93 (74-99) mg/dL Calcium 6.4 L* (8.4-10.2) mg/dL Phosphorus 9.5 H* (2.5-4.5) mg/dL Magnesium 1.8 (1.6-2.3) mg/dL Total Bilirubin 0.4 (0.2-1.3) mg/dL AST 27 (17-59) U/L ALT 34 (4-49) U/L Alkaline Phosphatase 84 (38-126) U/L Total Protein 6.0 L (6.3-8.2) g/dL Albumin 3.1 L (3.5-5.0) g/dL Urine Color Colorless Urine Appearance Clear (Clear) Urine pH 6.0 (5.0-8.0) Ur Specific [place] 1.013 (1.001-1.035) Urine Protein 3+ H (Negative) Urine Glucose (UA) 2+ H (Negative) Urine Ketones Negative (Negative) Urine Blood Small H (Negative) Urine Nitrite Negative (Negative) Urine Bilirubin Negative (Negative) Urine Urobilinogen <2.0 (<2.0) mg/dL Ur Leukocyte Esterase Negative (Negative) Urine RBC 2 (0-5) /hpf Urine WBC 1 (0-5) /hpf Ur Squamous Epith Cells 1 (0-4) /hpf Hyaline Casts 3 H (0-2) /lpf Granular Casts 5 (0) /lpf Urine Mucus Rare H (None) /hpf Urine Yeast (Budding) Rare H (None) /hpf Disposition Clinical Impression: Hyperphosphatemia, Hypocalcemia, Decreased GFR, Elevated serum creatinine Disposition: ADMITTED IP TO THIS [facility] Condition: Serious Referrals: Alhaji Alvarado MD [Primary Care Provider] - 1-2 days Decision to Admit Reason: Admit from [facility] Decision Date: 08/17/24 Decision Time: 21:30
[2024-08-17 21:18] LABS: Basophils % (A) 1 %; Eosinophils # (A) 0.2 k/uL (0-0.7); Eosinophils % (A) 3 %; HCT 33.3 % (39.0-53.0); HGB 10.4 gm/dL (13.0-17.5); Hypochromasia Slight; Lymphocytes # (A) 1.2 k/uL (1.0-4.8); Lymphocytes % (A) 18 %; MCH 29.1 pg (25.0-35.0); MCHC 31.3 g/dL (31.0-37.0); MCV 92.9 fL (80.0-100.0); Mean Platelet Volume 9.1; Monocytes # (A) 0.4 k/uL (0-1.0); Monocytes % (A) 6 %; Neutrophils # (A) 4.6 k/uL (1.3-7.7); Neutrophils % (A) 70 %; Platelet Count 120 k/uL (150-450); RBC 3.58 m/uL (4.30-5.90); RDW 15.3 % (11.5-15.5); WBC 6.5 k/uL (3.8-10.6)
[2024-08-17 21:33] LABS: ALT 34 U/L (4-49); AST 27 U/L (17-59); African American GFR (CKD) 8 (>60 ml/min/1.73 sqM); Albumin 3.1 g/dL (3.5-5.0); Alkaline Phosphatase 84 U/L (38-126); Anion Gap 10 mmol/L; Blood Urea Nitrogen 78 mg/dL (9-20); Carbon Dioxide 11 mmol/L (22-30); Chloride 122 mmol/L (98-107); Glucose 93 mg/dL (74-99); Magnesium 1.8 mg/dL (1.6-2.3); Non-African American GFR(CKD) 7 (>60 ml/min/1.73 sqM); Potassium 4.7 mmol/L (3.5-5.1); Sodium 143 mmol/L (137-145); Total Bilirubin 0.4 mg/dL (0.2-1.3)
[2024-08-17 21:41] LABS: Calcium 6.4 mg/dL (8.4-10.2); Phosphorus 9.5 mg/dL (2.5-4.5)
[2024-08-17 22:05] LABS: Appearance,Urine Clear (Clear); Bilirubin,Urine Negative (Negative); Blood,Urine Small (Negative); Budding Yeast,Urine Rare /hpf; Color,Urine Colorless; Glucose,Urine (UA) 2+ (Negative); Granular Casts,Urine 5 /lpf (0); Hyaline Casts,Urine 3 /lpf (0-2); Ketones,Urine Negative (Negative); Leukocyte Esterase,Urine Negative (Negative); Mucus,Urine Rare /hpf; Nitrite,Urine Negative (Negative); Protein,Urine 3+ (Negative); RBC,Urine 2 /hpf (0-5); Specific Gravity,Urine 1.013 (1.001-1.035); Squamous Epithelial Cell,Urine 1 /hpf (0-4); Urobilinogen,Urine <2.0 mg/dL (<2.0); WBC,Urine 1 /hpf (0-5)
[2024-08-17] MEDS ORDERED: ACETAMINOPHEN TAB 325 MG TAB PO PRN (22:16)
[2024-08-17] MEDS ORDERED: NALOXONE 0.4 MG/ML 1 ML VIAL IV PRN (22:16)
[2024-08-17] MEDS ORDERED: ALPRAZolam 0.25 MG TAB PO PRN (23:49)
[2024-08-17] MEDS ORDERED: DEXTROSE 50% SYRINGE 50 ML IVP PRN ×2 (23:51)
--- NOTE | 2024-08-18 00:04 | P.HPIM ---
History of Present Illness H&P Date: 08/17/24 Chief Complaint: abnormal labs This is a 49-year-old MALE with diabetes mellitus and hypertension. The patient was diagnosed with diabetes in 2016 and experienced severe illness that year, which could be related to current kidney issues. Symptoms of kidney failure, including significant swelling in the legs and ankles over the past week and a half, have prompted this visit. The patient denies shortness of breath, chest pain, nausea, or seizures but reports a decrease in appetite . Urine output remains adequate. The patient is seeking care because they have completed social commitments and are looking to discuss a treatment plan, including the possibility of dialysis. he had a port scheduled for placement for dialysis on the but are unsure about which method to choosearm versus belly. The patient has experienced issues with swelling intensifying after work, as evidenced by increased leg swelling upon returning home. They were informed that kidney issues were found via laboratory testing during a physical exam in March, prompting further evaluation. There is potential for a subsequent discussion regarding dialysis options with Dr. Abel at this visit. The patient lives independently and recently attended family celebrations, indicating a support system. chronic medical problems - Diabetes mellitus, diagnosed in 2016 - Hypertension Advanced CKD ROS - Constitutional: Denies fatigue, fever; reports significant swelling of the legs and ankles. - Pulmonary: Denies shortness of breath. - Gastrointestinal: Reports loss of appetite and bursting stomach feeling without pain. - Genitourinary: Maintains urine output. - Neurological: Denies seizures and stroke symptoms. - Cardiovascular: Denies chest pain or heart attack. - Endocrine: Active diabetes management. - Hematologic: Denies bleeding issues. - Integumentary: Reports itchy back. - Musculoskeletal: Reports leg swelling, particularly after working hours. on exam Constitutional: No acute distress, conversant, pleasant Eyes: Anicteric sclerae, moist conjunctiva, Pupils equal round reactive to light ENMT: NC/AT Oropharynx clear, no erythema, or exudates Neck: Supple, no masses, or JVD No carotid bruits No thyromegaly Lungs: Clear to auscultation Clear to percussion Normal respiratory effort, no accessory muscle use Cardiovascular: Heart regular in rate and rhythm, No murmurs, gallops, or rubs +1 bilateral peripheral edema Abdominal: Soft Nontender, no guarding, rebound or rigidity Abdomen moving with respiration Normoactive bowel sounds Extremities: No digital cyanosis No clubbing Pedal pulses intact and symmetrical Radial pulses intact and symmetrical No calf tenderness Psychiatric: Alert and oriented to person, place and time Appropriate affect fair judgement Neuro Muscles Strength 5/5 in all 4 extremities Sensation to light touch grossly present throughout Cranial nerves II-XII grossly intact Past Medical History Past Medical History: Diabetes Mellitus, GERD/Reflux, Hypertension Additional Past Medical History / Comment(s): Wound lt foot (wound clinic treatment with complete 01/01/17)-current reblistered, GERD History of Any Multi-Drug Resistant Organisms: MRSA Date of last positivie culture/infection: 02/22/2016 MDRO Source:: left foot Past Surgical History: Bariatric Surgery, Orthopedic Surgery Additional Past Surgical History / Comment(s): debridement in the groin area due to non healing wound, amputation of smallest toe on lt foot, amputation of the 4th toe on the right foot Past Anesthesia/Blood Transfusion Reactions: No Reported Reaction Past Psychological History: Depression Smoking Status: Never smoker Past Alcohol Use History: Occasional Past Drug Use History: None Reported - Past Family History Brother(s) Family Medical History: Cancer Father Family Medical History: Cancer Mother Family Medical History: Coronary Artery Disease (CAD), Deep Vein Thrombosis (DVT) Medications and Allergies Home Medications Medication Instructions Recorded Confirmed Type lisinopriL [Prinivil] 20 mg PO HS 04/25/15 08/12/18 History Atorvastatin [Lipitor] 20 mg PO HS 05/09/16 08/12/18 History Multivitamins, Thera [Multivitamin 1 tab PO DAILY 05/09/16 08/12/18 History (formulary)] metFORMIN HCL [Glucophage] 1,000 mg PO BID 10/19/16 08/12/18 History ALPRAZolam [Xanax] 0.25 mg PO BID PRN 07/16/17 08/12/18 History Sertraline HCl [Zoloft] 100 mg PO BID 08/13/17 08/12/18 History amLODIPine BESYLATE [Norvasc] 10 mg PO DAILY 08/13/17 08/12/18 History Ondansetron [Zofran] 4 mg PO Q8HR PRN #30 tab 08/14/17 08/12/18 Rx Sodium Polystyrene Sulfonate 15 gm PO DAILY #240 ml 11/05/17 08/12/18 Rx [Kayexalate] Moxifloxacin HCl [Avelox] 400 mg PO DAILY #30 tab 11/12/17 08/12/18 Rx Allergies Allergy/AdvReac Type Severity Reaction Status Date / Time No Known Allergies Allergy Verified 08/17/24 20:14 Physical Exam Vitals: Vital Signs Temp Pulse Resp BP Pulse Ox 08/17/24 23:16 64 16 155/88 99 08/17/24 22:10 68 16 131/75 98 08/17/24 21:30 71 16 148/80 99 08/17/24 20:12 98 F 77 18 151/91 98 Intake and Output 08/17/24 08/17/24 08/18/24 14:59 22:59 06:59 Other: Weight 131.542 kg Results CBC & Chem 7: 08/17/24 20:42 08/17/24 20:42 Labs: Abnormal Lab Results - Last 24 Hours (Table) 08/17/24 08/17/24 08/17/24 Range/Units 20:42 20:42 21:34 RBC 3.58 L (4.30-5.90) m/uL Hgb 10.4 L (13.0-17.5) gm/dL Hct 33.3 L (39.0-53.0) % Plt Count 120 L (150-450) k/uL Chloride 122 H (98-107) mmol/L Carbon Dioxide 11 L (22-30) mmol/L BUN 78 H (9-20) mg/dL Creatinine 8.22 H* (0.66-1.25) mg/dL Calcium 6.4 L* (8.4-10.2) mg/dL Phosphorus 9.5 H* (2.5-4.5) mg/dL Total Protein 6.0 L (6.3-8.2) g/dL Albumin 3.1 L (3.5-5.0) g/dL Urine Protein 3+ H (Negative) Urine Glucose (UA) 2+ H (Negative) Urine Blood Small H (Negative) Hyaline Casts 3 H (0-2) /lpf Urine Mucus Rare H (None) /hpf Urine Yeast (Budding) Rare H (None) /hpf Assessment and Plan Assessment: The patient presents with worsening renal function most likely due to a co mbination of diabetes and hypertension. Differential diagnoses include worsened diabetic nephropathy or hypertensive nephrosclerosis. The patient should discuss options for dialysis placement methods with Dr. Abel and consider home vs. center dialysis options based on the discussion on disease management expectations. It is crucial for the patient to maintain careful management of hygiene to avoid infections with any potential dialysis procedures. Recommendations include monitoring urinary output and assessing for any early signs of uremia. Case discussed with ED doc and I accepted the admission under observation with anticipated length of stay <2 midnights DM hold oral hypoglycemic AGENTS insuline sliding scale check a1c Hypertension , uncontrolled resume amlodipine resume lisinopril anemia of chronic disease no bleeding Hgb 10 CKD 5 monitor urine output Cr 8.2 BUN 78 nephorology consult k4.7 unremarkable hypocalcemia and hyperphosphatemia phoslo 2 tabs BID follow up electrolytes ca 6.4 phosphorus 9.5 DVT PPX heparin sc 5000 units tid full code
[2024-08-18] MEDS: HEPARIN SODIUM,PORCINE 5,000 UNIT/ML 1 ML VIAL SQ SCH (00:21)
[2024-08-18 06:55] LABS: Basophils % (A) 1 %; Eosinophils # (A) 0.2 k/uL (0-0.7); Eosinophils % (A) 4 %; HCT 33.1 % (39.0-53.0); HGB 10.3 gm/dL (13.0-17.5); Hypochromasia Moderate; Lymphocytes % (A) 19 %; MCH 29.1 pg (25.0-35.0); MCHC 31.1 g/dL (31.0-37.0); MCV 93.5 fL (80.0-100.0); Mean Platelet Volume 8.8; Monocytes # (A) 0.4 k/uL (0-1.0); Monocytes % (A) 7 %; Neutrophils # (A) 3.7 k/uL (1.3-7.7); Neutrophils % (A) 69 %; Platelet Count 105 k/uL (150-450); RBC 3.54 m/uL (4.30-5.90); RDW 14.9 % (11.5-15.5); WBC 5.3 k/uL (3.8-10.6)
[2024-08-18 07:05] LABS: ALT 31 U/L (4-49); AST 22 U/L (17-59); African American GFR (CKD) 8 (>60 ml/min/1.73 sqM); Alkaline Phosphatase 77 U/L (38-126); Anion Gap 14 mmol/L; Blood Urea Nitrogen 76 mg/dL (9-20); Calcium 6.5 mg/dL (8.4-10.2); Carbon Dioxide 13 mmol/L (22-30); Chloride 117 mmol/L (98-107); Glucose 95 mg/dL (74-99); Non-African American GFR(CKD) 7 (>60 ml/min/1.73 sqM); Potassium 4.6 mmol/L (3.5-5.1); Sodium 144 mmol/L (137-145); Total Bilirubin 0.3 mg/dL (0.2-1.3); Total Protein 5.7 g/dL (6.3-8.2)
[2024-08-18 08:08] LABS: Glucose,Whole Blood 87 mg/dL (70-110)
[2024-08-18] MEDS: INSULIN ASPART (NovoLOG) 100 UNIT/ML VIAL SQ SCH (08:08)
[2024-08-18] MEDS: CALCIUM ACETATE 667 MG TAB PO SCH ×2 (08:29→16:51)
[2024-08-18] MEDS: amLODIPine 10 MG TAB PO SCH (08:31)
--- NOTE | 2024-08-18 10:10 | P.GSCN ---
History of Present Illness Consult date: 08/18/24 Reason for Consult: Permacath placement Requesting physician: Barber Mei History of present illness: This is a pleasant 49-year-old male with a history of diabetes mellitus and chronic kidney disease with increasing creatinine now requiring hemodialysis. Patient has seen Dr. Alberto in the office for vein mapping for possible fistula versus AV graft placement. Dr. Mei, with nephrology is asking for tunneled catheter placement and to begin hemodialysis today. Patient states he is making good urine. He denies any shortness of breath or chest pain. BUN 76 creatinine 8.2. Patient did eat breakfast this morning at 8 AM. Review of Systems A 14 point review systems was completed all pertinent positives and negatives as stated in the HPI. Past Medical History Past Medical History: Diabetes Mellitus, GERD/Reflux, Hypertension Additional Past Medical History / Comment(s): Wound lt foot (wound clinic treatment with complete 01/01/17)-current reblistered, GERD History of Any Multi-Drug Resistant Organisms: MRSA Year Discovered:: 02/22/2016 MDRO Source:: left foot Past Surgical History: Bariatric Surgery, Orthopedic Surgery Additional Past Surgical History / Comment(s): debridement in the groin area due to non healing wound, amputation of smallest toe on lt foot, amputation of the 4th toe on the right foot Past Anesthesia/Blood Transfusion Reactions: No Reported Reaction Past Psychological History: Depression Smoking Status: Never smoker Past Alcohol Use History: Occasional Past Drug Use History: None Reported - Past Family History Brother(s) Family Medical History: Cancer Father Family Medical History: Cancer Mother Family Medical History: Coronary Artery Disease (CAD), Deep Vein Thrombosis (DVT) Medications and Allergies Home Medications Medication Instructions Recorded Confirmed Type Atorvastatin [Lipitor] 20 mg PO HS 05/09/16 08/18/24 History Sertraline HCl [Zoloft] 100 mg PO BID 08/13/17 08/18/24 History amLODIPine BESYLATE [Norvasc] 10 mg PO DAILY 08/13/17 08/18/24 History Calcium Acetate [Phoslo] 667 mg PO TID-W/MEALS 08/18/24 08/18/24 History Ergocalciferol (Vitamin D2) 1,250 mcg PO FR 08/18/24 08/18/24 History [Drisdol (50,000 Iu)] Sodium Bicarbonate Tab 1,300 mg PO BID 08/18/24 08/18/24 History calcitrioL [Rocaltrol] 0.5 mcg PO DAILY 08/18/24 08/18/24 History carvediloL [Coreg] 6.25 mg PO BID 08/18/24 08/18/24 History Allergies Allergy/AdvReac Type Severity Reaction Status Date / Time No Known Allergies Allergy Verified 08/18/24 06:55 Surgical - Exam Vital Signs Temp Pulse Resp BP Pulse Ox 98 F 77 18 151/91 98 08/17/24 20:12 08/17/24 20:12 08/17/24 20:12 08/17/24 20:12 08/17/24 20:12 General appearance: The patient is alert, oriented, appears in no acute distress. Obese. HET: Head is normocephalic and atraumatic. Pupils are equal and reactive. Neck: Supple. Heart: Regular. Lungs: Equal expansion, normal respiratory effort. Abdomen: Soft, nontender, nondistended. Extremities: Normal skin color and turgor. Neurological: No focal deficits. Strength and sensation are grossly intact. Results - Labs 08/18/24 06:09 08/18/24 06:09 Abnormal Lab Results - Last 24 Hours (Table) 08/17/24 08/17/24 08/17/24 Range/Units 20:42 20:42 21:34 RBC 3.58 L (4.30-5.90) m/uL Hgb 10.4 L (13.0-17.5) gm/dL Hct 33.3 L (39.0-53.0) % Plt Count 120 L (150-450) k/uL Chloride 122 H (98-107) mmol/L Carbon Dioxide 11 L (22-30) mmol/L BUN 78 H (9-20) mg/dL Creatinine 8.22 H* (0.66-1.25) mg/dL Calcium 6.4 L* (8.4-10.2) mg/dL Phosphorus 9.5 H* (2.5-4.5) mg/dL Total Protein 6.0 L (6.3-8.2) g/dL Albumin 3.1 L (3.5-5.0) g/dL Urine Protein 3+ H (Negative) Urine Glucose (UA) 2+ H (Negative) Urine Blood Small H (Negative) Hyaline Casts 3 H (0-2) /lpf Urine Mucus Rare H (None) /hpf Urine Yeast (Budding) Rare H (None) /hpf 08/18/24 08/18/24 Range/Units 06:09 06:09 RBC 3.54 L (4.30-5.90) m/uL Hgb 10.3 L (13.0-17.5) gm/dL Hct 33.1 L (39.0-53.0) % Plt Count 105 L (150-450) k/uL Chloride 117 H (98-107) mmol/L Carbon Dioxide 13 L (22-30) mmol/L BUN 76 H (9-20) mg/dL Creatinine 8.20 H* (0.66-1.25) mg/dL Calcium 6.5 L (8.4-10.2) mg/dL Phosphorus (2.5-4.5) mg/dL Total Protein 5.7 L (6.3-8.2) g/dL Albumin 3.0 L (3.5-5.0) g/dL Urine Protein (Negative) Urine Glucose (UA) (Negative) Urine Blood (Negative) Hyaline Casts (0-2) /lpf Urine Mucus (None) /hpf Urine Yeast (Budding) (None) /hpf Diabetes panel 08/17/24 08/18/24 Range/Units 20:42 06:09 Sodium 143 144 (137-145) mmol/L Potassium 4.7 4.6 (3.5-5.1) mmol/L Chloride 122 H 117 H (98-107) mmol/L Carbon Dioxide 11 L 13 L (22-30) mmol/L BUN 78 H 76 H (9-20) mg/dL Creatinine 8.22 H* 8.20 H* (0.66-1.25) mg/dL Glucose 93 95 (74-99) mg/dL Calcium 6.4 L* 6.5 L (8.4-10.2) mg/dL AST 27 22 (17-59) U/L ALT 34 31 (4-49) U/L Alkaline Phosphatase 84 77 (38-126) U/L Total Protein 6.0 L 5.7 L (6.3-8.2) g/dL Albumin 3.1 L 3.0 L (3.5-5.0) g/dL Calcium panel 08/17/24 08/18/24 Range/Units 20:42 06:09 Calcium 6.4 L* 6.5 L (8.4-10.2) mg/dL Phosphorus 9.5 H* (2.5-4.5) mg/dL Albumin 3.1 L 3.0 L (3.5-5.0) g/dL Pituitary panel 08/17/24 08/18/24 Range/Units 20:42 06:09 Sodium 143 144 (137-145) mmol/L Potassium 4.7 4.6 (3.5-5.1) mmol/L Chloride 122 H 117 H (98-107) mmol/L Carbon Dioxide 11 L 13 L (22-30) mmol/L BUN 78 H 76 H (9-20) mg/dL Creatinine 8.22 H* 8.20 H* (0.66-1.25) mg/dL Glucose 93 95 (74-99) mg/dL Calcium 6.4 L* 6.5 L (8.4-10.2) mg/dL Adrenal panel 08/17/24 08/18/24 Range/Units 20:42 06:09 Sodium 143 144 (137-145) mmol/L Potassium 4.7 4.6 (3.5-5.1) mmol/L Chloride 122 H 117 H (98-107) mmol/L Carbon Dioxide 11 L 13 L (22-30) mmol/L BUN 78 H 76 H (9-20) mg/dL Creatinine 8.22 H* 8.20 H* (0.66-1.25) mg/dL Glucose 93 95 (74-99) mg/dL Calcium 6.4 L* 6.5 L (8.4-10.2) mg/dL Total Bilirubin 0.4 0.3 (0.2-1.3) mg/dL AST 27 22 (17-59) U/L ALT 34 31 (4-49) U/L Alkaline Phosphatase 84 77 (38-126) U/L Total Protein 6.0 L 5.7 L (6.3-8.2) g/dL Albumin 3.1 L 3.0 L (3.5-5.0) g/dL Assessment and Plan Assessment: 1. Chronic kidney disease now requiring hemodialysis 2. History of diabetes mellitus 3. Obesity Plan: Patient was seen and examined and discussed with Dr. Mei, he is skin that permacath placement be done today so patient can get hemodialysis. Spoke with Dr. Mcmanus who is able to place hemodialysis tunneled catheter today. Patient is made n.p.o. we will continue to follow. Hemodialysis per recommendations from nephrology. The impression and plan of care has been dictated as directed. I performed a history and examination of this patient, discussed the same with the dictator. I agree with the dictator's note ,documented as a scribe. Any additional findings or plans will be noted.
--- NOTE | 2024-08-18 10:43 | P.NPCON ---
History of Present Illness - Reason for Consult end stage renal disease - History of Present Illness Reason for consultation: Chronic kidney disease History of present illness: Patient is a 49-year-old male seen in renal consultation for chronic kidney disease. Patient has chronic kidney disease stage V. Patient was scheduled to have AV fistula surgery on August 27, 2024 but developed weakness and edema last week and was also noted to have decline in renal function. He was advised to go to the hospital last week but subsequently came and left AMA. He decided to come back again last night. Creatinine is 8.2. Feels weak. Oral intake is less than usual. Denies any metallic taste. Has been voiding. No gross hematuria or dysuria. Patient has longstanding history of diabetes. Denies history of coronary artery disease. Denies use of nonsteroidals. No gross hematuria or dysuria. Denies weight loss. Vital signs are stable. General: No acute distress. HEENT: Head exam is unremarkable. LUNGS: No audible rhonchi or wheezes. HEART: Rate and Rhythm are regular. ABDOMEN: Nontender. EXTREMITITES: Trace edema. Past Medical History Past Medical History: Diabetes Mellitus, GERD/Reflux, Hypertension Additional Past Medical History / Comment(s): Wound lt foot (wound clinic treatment with complete 01/01/17)-current reblistered, GERD History of Any Multi-Drug Resistant Organisms: MRSA Date of last positivie culture/infection: 02/22/2016 MDRO Source:: left foot Past Surgical History: Bariatric Surgery, Orthopedic Surgery Additional Past Surgical History / Comment(s): debridement in the groin area due to non healing wound, amputation of smallest toe on lt foot, amputation of the 4th toe on the right foot Past Anesthesia/Blood Transfusion Reactions: No Reported Reaction Past Psychological History: Depression Smoking Status: Never smoker Past Alcohol Use History: Occasional Past Drug Use History: None Reported - Past Family History Brother(s) Family Medical History: Cancer Father Family Medical History: Cancer Mother Family Medical History: Coronary Artery Disease (CAD), Deep Vein Thrombosis (DVT) Medications and Allergies Home Medications Medication Instructions Recorded Confirmed Type Atorvastatin [Lipitor] 20 mg PO HS 05/09/16 08/18/24 History Sertraline HCl [Zoloft] 100 mg PO BID 08/13/17 08/18/24 History amLODIPine BESYLATE [Norvasc] 10 mg PO DAILY 08/13/17 08/18/24 History Calcium Acetate [Phoslo] 667 mg PO TID-W/MEALS 08/18/24 08/18/24 History Ergocalciferol (Vitamin D2) 1,250 mcg PO FR 08/18/24 08/18/24 History [Drisdol (50,000 Iu)] Sodium Bicarbonate Tab 1,300 mg PO BID 08/18/24 08/18/24 History calcitrioL [Rocaltrol] 0.5 mcg PO DAILY 08/18/24 08/18/24 History carvediloL [Coreg] 6.25 mg PO BID 08/18/24 08/18/24 History Allergies Allergy/AdvReac Type Severity Reaction Status Date / Time No Known Allergies Allergy Verified 08/18/24 06:55 Physical Exam Vitals: Vital Signs Temp Pulse Resp BP Pulse Ox 08/18/24 06:06 68 15 158/81 100 08/18/24 03:23 65 16 129/66 99 08/18/24 01:52 65 16 127/64 98 08/18/24 00:54 64 16 142/81 98 08/17/24 23:16 64 16 155/88 99 08/17/24 22:10 68 16 131/75 98 08/17/24 21:30 71 16 148/80 99 08/17/24 20:12 98 F 77 18 151/91 98 Intake and Output 08/17/24 08/18/24 08/18/24 22:59 06:59 14:59 Other: Weight 131.542 kg Results - Lab Results Most recent lab results Calcium 6.5 mg/dL (8.4-10.2) L 08/18/24 06:09 Phosphorus 9.5 mg/dL (2.5-4.5) H* 08/17/24 20:42 Magnesium 1.8 mg/dL (1.6-2.3) 08/17/24 20:42 08/18/24 06:09 08/18/24 06:09 Assessment and Plan Plan: Assessment: 1. Chronic kidney disease stage V now progressed to end-stage renal disease. 2. Metabolic acidosis secondary to chronic kidney disease. 3. Chronic kidney disease mineral bone disease with calcium level of 6.4 and phosphorus level of 9.5. On PhosLo. 4. Diabetes mellitus. 5. Hypertension with chronic kidney disease. 6. Anemia of chronic kidney disease. Plan: 2 g sodium bicarb IV push now. Add oral bicarb. Check iron studies. Add torsemide 40 mg once daily. Encouraged oral intake. Vascular surgery consulted for permacath placement. Plan for first treatment of hemodialysis today and second treatment tomorrow. pipelines manager to set up outpatient hemodialysis. PD also discussed. Will further educate outpatient. Also has been referred for transplant eval. Thank you for the consultation. I will continue to follow the patient with you during his hospital stay.
[2024-08-18] MEDS: SODIUM BICARBONATE TAB 650 MG TAB PO SCH (11:05)
[2024-08-18] MEDS: carvediloL 6.25 MG TAB PO SCH (11:05)
[2024-08-18] MEDS: SERTRALINE 100 MG TAB PO SCH (11:05)
[2024-08-18] MEDS: TORSEMIDE 20 MG TAB PO SCH (11:05)
[2024-08-18] MEDS: SODIUM BICARB 8.4% 50 ML SYR (1 MEQ/ML) IV STA (11:09)
[2024-08-18] MEDS: Acetaminophen-Codeine 300-30mg TAB PO PRN (11:10)
[2024-08-18] MEDS: SODIUM CHLORIDE 0.9% 250 ML IV ONE (11:42)
[2024-08-18] MEDS: MIDAZOLAM 2 MG/2 ML VIAL IVP ONE (11:54)
[2024-08-18] MEDS: LIDOCAINE 1% INJ 10MG/ML (20 ML MDV) SQ ONE ×2 (11:55→12:00)
--- NOTE | 2024-08-18 12:29 | IR ---
EXAMINATION TYPE: IR cvc insert central tunneled DATE OF EXAM: 08/18/2024 COMPARISON: NONE CLINICAL INDICATION: Male, 49 years old with history of Dialysis, 0.97m/8.474DAP, Rt IJ 14.5 x 23cm D ailysis cathete; Fluoroscopy was provided to the referring clinician. [facility], , 08/18/2024 12:26 PM
--- NOTE | 2024-08-18 13:21 | XR ---
EXAMINATION TYPE: XR chest 1V portable DATE OF EXAM: 08/18/2024 1:08 PM COMPARISON: None. CLINICAL INDICATION: Male, 49 years old with history of Perm Dialysis Cath Placement, TECHNIQUE: XR chest 1V portable view(s) obtained. FINDINGS: The heart size is normal. The pulmonary vasculature is normal. The lungs are clear. Double-lumen catheter is present on the right with tips in superior vena cava region. IMPRESSION: 1. No acute pulmonary process. 2. No pneumothorax post line placement. Tips are within the superior vena cava region. [facility], , 08/18/2024 1:19 PM
--- NOTE | 2024-08-18 13:25 | P.GSCN ---
History of Present Illness History of present illness: 49-year-old gentleman well-known to me for the past patient had a 4 to amputation and big toe debrided in the past wound is completely healed patient has history of chronic renal failure consulted for placement of dialysis catheter. Chest is clear good entry both lung. Second sound present Abdomen soft nontender brachial radial femoral pulses are present Plan is placement of a dialysis catheter risk and complication discussed Past Medical History Past Medical History: Diabetes Mellitus, GERD/Reflux, Hypertension Additional Past Medical History / Comment(s): Wound lt foot (wound clinic treatment with complete 01/01/17)-current reblistered, GERD History of Any Multi-Drug Resistant Organisms: MRSA Year Discovered:: 02/22/2016 MDRO Source:: left foot Past Surgical History: Bariatric Surgery, Orthopedic Surgery Additional Past Surgical History / Comment(s): debridement in the groin area due to non healing wound, amputation of smallest toe on lt foot, amputation of the 4th toe on the right foot Past Anesthesia/Blood Transfusion Reactions: No Reported Reaction Past Psychological History: Depression Smoking Status: Never smoker Past Alcohol Use History: Occasional Past Drug Use History: None Reported - Past Family History Brother(s) Family Medical History: Cancer Father Family Medical History: Cancer Mother Family Medical History: Coronary Artery Disease (CAD), Deep Vein Thrombosis (DVT) Medications and Allergies Home Medications Medication Instructions Recorded Confirmed Type Atorvastatin [Lipitor] 20 mg PO HS 05/09/16 08/18/24 History Sertraline HCl [Zoloft] 100 mg PO BID 08/13/17 08/18/24 History amLODIPine BESYLATE [Norvasc] 10 mg PO DAILY 08/13/17 08/18/24 History Calcium Acetate [Phoslo] 667 mg PO TID-W/MEALS 08/18/24 08/18/24 History Ergocalciferol (Vitamin D2) 1,250 mcg PO FR 08/18/24 08/18/24 History [Drisdol (50,000 Iu)] Sodium Bicarbonate Tab 1,300 mg PO BID 08/18/24 08/18/24 History calcitrioL [Rocaltrol] 0.5 mcg PO DAILY 08/18/24 08/18/24 History carvediloL [Coreg] 6.25 mg PO BID 08/18/24 08/18/24 History Allergies Allergy/AdvReac Type Severity Reaction Status Date / Time No Known Allergies Allergy Verified 08/18/24 06:55 Surgical - Exam Vital Signs Temp Pulse Resp BP Pulse Ox 98 F 77 18 151/91 98 08/17/24 20:12 08/17/24 20:12 08/17/24 20:12 08/17/24 20:12 08/17/24 20:12 Results - Labs 08/18/24 06:09 08/18/24 06:09 Abnormal Lab Results - Last 24 Hours (Table) 08/17/24 08/17/24 08/17/24 Range/Units 20:42 20:42 21:34 RBC 3.58 L (4.30-5.90) m/uL Hgb 10.4 L (13.0-17.5) gm/dL Hct 33.3 L (39.0-53.0) % Plt Count 120 L (150-450) k/uL Chloride 122 H (98-107) mmol/L Carbon Dioxide 11 L (22-30) mmol/L BUN 78 H (9-20) mg/dL Creatinine 8.22 H* (0.66-1.25) mg/dL Calcium 6.4 L* (8.4-10.2) mg/dL Phosphorus 9.5 H* (2.5-4.5) mg/dL Total Protein 6.0 L (6.3-8.2) g/dL Albumin 3.1 L (3.5-5.0) g/dL Urine Protein 3+ H (Negative) Urine Glucose (UA) 2+ H (Negative) Urine Blood Small H (Negative) Hyaline Casts 3 H (0-2) /lpf Urine Mucus Rare H (None) /hpf Urine Yeast (Budding) Rare H (None) /hpf 08/18/24 08/18/24 Range/Units 06:09 06:09 RBC 3.54 L (4.30-5.90) m/uL Hgb 10.3 L (13.0-17.5) gm/dL Hct 33.1 L (39.0-53.0) % Plt Count 105 L (150-450) k/uL Chloride 117 H (98-107) mmol/L Carbon Dioxide 13 L (22-30) mmol/L BUN 76 H (9-20) mg/dL Creatinine 8.20 H* (0.66-1.25) mg/dL Calcium 6.5 L (8.4-10.2) mg/dL Phosphorus (2.5-4.5) mg/dL Total Protein 5.7 L (6.3-8.2) g/dL Albumin 3.0 L (3.5-5.0) g/dL Urine Protein (Negative) Urine Glucose (UA) (Negative) Urine Blood (Negative) Hyaline Casts (0-2) /lpf Urine Mucus (None) /hpf Urine Yeast (Budding) (None) /hpf Diabetes panel 08/17/24 08/18/24 08/18/24 Range/Units 20:42 06:09 06:09 Sodium 143 144 (137-145) mmol/L Potassium 4.7 4.6 (3.5-5.1) mmol/L Chloride 122 H 117 H (98-107) mmol/L Carbon Dioxide 11 L 13 L (22-30) mmol/L BUN 78 H 76 H (9-20) mg/dL Creatinine 8.22 H* 8.20 H* (0.66-1.25) mg/dL Glucose 93 95 (74-99) mg/dL Hemoglobin A1c 5.0 (<=6.0) % Calcium 6.4 L* 6.5 L (8.4-10.2) mg/dL AST 27 22 (17-59) U/L ALT 34 31 (4-49) U/L Alkaline Phosphatase 84 77 (38-126) U/L Total Protein 6.0 L 5.7 L (6.3-8.2) g/dL Albumin 3.1 L 3.0 L (3.5-5.0) g/dL Calcium panel 08/17/24 08/18/24 Range/Units 20:42 06:09 Calcium 6.4 L* 6.5 L (8.4-10.2) mg/dL Phosphorus 9.5 H* (2.5-4.5) mg/dL Albumin 3.1 L 3.0 L (3.5-5.0) g/dL Pituitary panel 08/17/24 08/18/24 Range/Units 20:42 06:09 Sodium 143 144 (137-145) mmol/L Potassium 4.7 4.6 (3.5-5.1) mmol/L Chloride 122 H 117 H (98-107) mmol/L Carbon Dioxide 11 L 13 L (22-30) mmol/L BUN 78 H 76 H (9-20) mg/dL Creatinine 8.22 H* 8.20 H* (0.66-1.25) mg/dL Glucose 93 95 (74-99) mg/dL Calcium 6.4 L* 6.5 L (8.4-10.2) mg/dL Adrenal panel 08/17/24 08/18/24 Range/Units 20:42 06:09 Sodium 143 144 (137-145) mmol/L Potassium 4.7 4.6 (3.5-5.1) mmol/L Chloride 122 H 117 H (98-107) mmol/L Carbon Dioxide 11 L 13 L (22-30) mmol/L BUN 78 H 76 H (9-20) mg/dL Creatinine 8.22 H* 8.20 H* (0.66-1.25) mg/dL Glucose 93 95 (74-99) mg/dL Calcium 6.4 L* 6.5 L (8.4-10.2) mg/dL Total Bilirubin 0.4 0.3 (0.2-1.3) mg/dL AST 27 22 (17-59) U/L ALT 34 31 (4-49) U/L Alkaline Phosphatase 84 77 (38-126) U/L Total Protein 6.0 L 5.7 L (6.3-8.2) g/dL Albumin 3.1 L 3.0 L (3.5-5.0) g/dL
--- NOTE | 2024-08-18 13:27 | P.PCN ---
Description of Procedure: Preop diagnosis acute chronic renal failure postop the same Procedure ultrasound-guided 23 cm dialysis catheter placed right jugular a [facility] Procedure patient brought to the [facility] right side the neck and chest was prepped draped in Prestel manner percent lidocaine were infiltrated with IV sedation. Ultrasound-guided micropuncture introduced right jugular vein micropuncture guide was passed. 4 Kyrgyz dilator advanced up the guidewire. Then we passed a regular guidewire which was parked at the inferior vena cava. A tunnel was created through the tunnel we brought 23 cm dialysis catheter. We controlled dialysis was advanced of the guidewire then placed a sheath on the top of the guidewire through the sheath we introduced dialysis catheter tip of catheter in superior vena cava and atrial junction flushed with heparin saline hep-locked secured with 3-0 nylon dressing applied patient tarted the procedure well x-ray of the chest
[2024-08-18 15:34] LABS: Hepatitis B Surface Antigen Nonreactive (Nonreactive)
[2024-08-18 15:38] LABS: % Iron Saturation 31.21 (15.00-50.00); Ferritin 93.8 ng/mL (22.0-322.0)
[2024-08-18 15:59] LABS: Hepatitis B Surface AB- Quant 3.5 mIU/mL
[2024-08-18 16:05] LABS: Glucose,Whole Blood 95 mg/dL (70-110)
--- NOTE | 2024-08-18 16:09 | P.PN ---
Subjective Progress Note Date: 08/18/24 49 year old M with PMH of CKD, DM, HTN presents to the ED for increased swelling. In the ED he underwent extensive evaluation. BP 151/91, HR 77, RR 18, T 98F, 98% on RA. CBC, CMP significant for RBC 3.58, Hg 10.4, Hct 33.3, Plt 120, Cl 122, bicarb 11, BUN 78, Cr 8.22, Ca 6.4. Phos 9.5. UA neg LE or nitrite, 3+ protein, small blood. Hep B neg. Patient admitted for further workup and management. Vascular surgery consulted, underwent HD catheter right jugular approach. Nephrology on board for HD today and tomorrow. 08/18 Patient was seen and examined. No acute events overnight. No complaints. Undergoing HD today. CBC, CMP significant for RBC 3.54, Hg 10.3, Hct 33.1, Plt 105, Cl 117, bicarb 13, BUN 76, Cr 8.2, Ca 6.5, alb 3. General: non toxic, no distress, appears at stated age Derm: warm, dry Head: atraumatic, normocephalic, symmetric Eyes: EOMI, no lid lag, anicteric sclera Mouth: no lip lesion, mucus membranes moist Cardiovascular: S1S2 reg, no murmur, R HD catheter Lungs: Clear to auscultation bilaterally, no rhonchi, no rales , no accessory muscle use Neuro: no focal neuro deficits Psych: Alert, oriented, appropriate affect Based on my assessment of this patient, this patient meets a high complexity level of care. CKD stage V with metabolic acidosis Anemia of chronic disease Hypocalcemia Hyperphosphatemia DM HTN Nephrology on board, HD today and tomorrow. Status post 2g sodium bicarb IV + sodium bicarb 650 mg PO BID started by Nephrology. ISS with accuchecks ACHS and hypoglycemic precautions. Coreg 6.25 mg PO BID, Amlodipine 10 mg PO QD for HTN. Calcitriol 0.5 mg PO QD. Phoslo 667 mg PO TID. CODE STATUS: FULL CODE. DVT Prophylaxis: Heparin SQ GI Prophylaxis: Designated medical POA if patient is not able to make medical decisions for themselves: I have reviewed the following entry level sales consultant notes: Nephro, Vascular note. I have reviewed the results of the following tests: CBC, BMP. I have ordered the following tests: Agree with BMP and Mag tomorrow. I have discussed the care of this patient with the following independent historian: Family. I have independently interpreted the following test below: I have discussed the management of this patient with the following physician: Objective - Vital Signs Vital signs: Vital Signs Temp 97.8 F 08/18/24 12:37 Pulse 70 08/18/24 12:37 Resp 16 08/18/24 12:37 BP 170/97 08/18/24 12:37 Pulse Ox 99 08/18/24 12:37 FiO2 Intake & Output 08/17/24 08/18/24 08/18/24 18:59 06:59 18:59 Weight 131.542 kg - Labs CBC & Chem 7: 08/18/24 06:09 08/18/24 06:09 Labs: Abnormal Lab Results - Last 24 Hours (Table) 08/17/24 08/17/24 08/17/24 Range/Units 20:42 20:42 21:34 RBC 3.58 L (4.30-5.90) m/uL Hgb 10.4 L (13.0-17.5) gm/dL Hct 33.3 L (39.0-53.0) % Plt Count 120 L (150-450) k/uL Chloride 122 H (98-107) mmol/L Carbon Dioxide 11 L (22-30) mmol/L BUN 78 H (9-20) mg/dL Creatinine 8.22 H* (0.66-1.25) mg/dL Calcium 6.4 L* (8.4-10.2) mg/dL Phosphorus 9.5 H* (2.5-4.5) mg/dL Total Protein 6.0 L (6.3-8.2) g/dL Albumin 3.1 L (3.5-5.0) g/dL Urine Protein 3+ H (Negative) Urine Glucose (UA) 2+ H (Negative) Urine Blood Small H (Negative) Hyaline Casts 3 H (0-2) /lpf Urine Mucus Rare H (None) /hpf Urine Yeast (Budding) Rare H (None) /hpf 08/18/24 08/18/24 Range/Units 06:09 06:09 RBC 3.54 L (4.30-5.90) m/uL Hgb 10.3 L (13.0-17.5) gm/dL Hct 33.1 L (39.0-53.0) % Plt Count 105 L (150-450) k/uL Chloride 117 H (98-107) mmol/L Carbon Dioxide 13 L (22-30) mmol/L BUN 76 H (9-20) mg/dL Creatinine 8.20 H* (0.66-1.25) mg/dL Calcium 6.5 L (8.4-10.2) mg/dL Phosphorus (2.5-4.5) mg/dL Total Protein 5.7 L (6.3-8.2) g/dL Albumin 3.0 L (3.5-5.0) g/dL Urine Protein (Negative) Urine Glucose (UA) (Negative) Urine Blood (Negative) Hyaline Casts (0-2) /lpf Urine Mucus (None) /hpf Urine Yeast (Budding) (None) /hpf
[2024-08-18 20:08] LABS: Glucose,Whole Blood 145 mg/dL (70-110)
[2024-08-18] MEDS: ATORVASTATIN 20 MG TAB PO SCH (20:25)
[2024-08-18] MEDS ORDERED: lisinopriL 20 MG TAB PO SCH (21:00)
[2024-08-19 06:27] LABS: Glucose,Whole Blood 88 mg/dL (70-110)
[2024-08-19 07:45] LABS: African American GFR (CKD) 9 (>60 ml/min/1.73 sqM); Anion Gap 11 mmol/L; Blood Urea Nitrogen 64 mg/dL (9-20); Calcium 6.7 mg/dL (8.4-10.2); Carbon Dioxide 20 mmol/L (22-30); Chloride 111 mmol/L (98-107); Glucose 79 mg/dL (74-99); Magnesium 1.6 mg/dL (1.6-2.3); Non-African American GFR(CKD) 8 (>60 ml/min/1.73 sqM); Potassium 4.2 mmol/L (3.5-5.1); Sodium 142 mmol/L (137-145)
--- NOTE | 2024-08-19 09:04 | P.PN ---
Subjective Progress Note Date: 08/19/24 Principal diagnosis: End-stage renal disease requiring hemodialysis Patient is seen and examined today as a follow-up. He had a right IJ tunnel catheter placed yesterday by Dr. Mcmanus. Patient denies any chest pain, shortness of breath, or difficulty breathing. He underwent hemodialysis yesterday and states there were no complications. He is scheduled to have hemodialysis again today. BUN 64, creatinine 7.1 Objective - Vital Signs Vital signs: Vital Signs Temp 97.8 F 08/19/24 08:46 Pulse 75 08/19/24 08:46 Resp 16 08/19/24 08:46 BP 138/79 08/19/24 08:46 Pulse Ox 98 08/19/24 08:46 FiO2 Intake & Output 08/18/24 08/19/24 08/19/24 18:59 06:59 18:59 Intake Total 518 Output Total 2400 600 Balance -1882 -600 Weight 131.542 kg 127.6 kg Intake: Oral 118 Hemodialysis 400 Output: Urine 600 Hemodialysis 1400 Hemodialysis Net Amount 1000 Other: Voiding Method Toilet Urinal # Voids 0 - Exam General appearance: The patient is alert, oriented, appears in no acute distress. Obese HET: Head is normocephalic and atraumatic. Pupils are equal and reactive. Neck: Supple. Right IJ tunnel catheter in place with dressing secured. Heart: Regular. Lungs: Equal expansion, normal respiratory effort. Abdomen: Soft, nontender, nondistended. Extremities: Normal skin color and turgor. Neurological: No focal deficits. Strength and sensation are grossly intact. - Labs CBC & Chem 7: 08/18/24 06:09 08/19/24 06:45 Labs: Abnormal Lab Results - Last 24 Hours (Table) 08/18/24 08/19/24 Range/Units 20:07 06:45 Chloride 111 H (98-107) mmol/L Carbon Dioxide 20 L (22-30) mmol/L BUN 64 H (9-20) mg/dL Creatinine 7.10 H* (0.66-1.25) mg/dL POC Glucose (mg/dL) 145 H (70-110) mg/dL Calcium 6.7 L (8.4-10.2) mg/dL Assessment and Plan Assessment: 1. End-stage renal disease now requiring hemodialysis status post tunnel catheter placement 2. History of diabetes mellitus 3. Obesity Plan: 1. Continue with recommendations from nephrology 2. Patient to follow-up with Dr. Alberto as previously scheduled Thank you for this consultation, we will sign off at this time. The impression and plan of care has been dictated as directed. I performed a history and examination of this patient, discussed the same with the dictator. I agree with the dictator's note ,documented as a scribe. Any additional findings or plans will be noted.
--- NOTE | 2024-08-19 10:26 | P.PN ---
Subjective Patient is seen in follow-up for end-stage renal disease. Started on hemodialysis August 18, 2024. No problems with dialysis yesterday. Feels we ll. No active complaints. Vital signs are stable. General: No acute distress. HEENT: Head exam is unremarkable. LUNGS: No audible rhonchi or wheezes. HEART: Rate and Rhythm are regular. ABDOMEN: Nontender. EXTREMITITES: No edema. Objective - Vital Signs Vital signs: Vital Signs Temp 97.8 F 08/19/24 08:46 Pulse 75 08/19/24 08:46 Resp 16 08/19/24 08:46 BP 138/79 08/19/24 08:46 Pulse Ox 98 08/19/24 08:46 FiO2 Intake & Output 08/18/24 08/19/24 08/19/24 18:59 06:59 18:59 Intake Total 518 Output Total 2400 600 Balance -1882 -600 Weight 131.542 kg 127.6 kg Intake: Oral 118 Hemodialysis 400 Output: Urine 600 Hemodialysis 1400 Hemodialysis Net Amount 1000 Other: Voiding Method Toilet Urinal # Voids 0 - Labs CBC & Chem 7: 08/18/24 06:09 08/19/24 06:45 Labs: Abnormal Lab Results - Last 24 Hours (Table) 08/18/24 08/19/24 Range/Units 20:07 06:45 Chloride 111 H (98-107) mmol/L Carbon Dioxide 20 L (22-30) mmol/L BUN 64 H (9-20) mg/dL Creatinine 7.10 H* (0.66-1.25) mg/dL POC Glucose (mg/dL) 145 H (70-110) mg/dL Calcium 6.7 L (8.4-10.2) mg/dL Assessment and Plan Plan: Assessment: 1. Chronic kidney disease stage V now progressed to end-stage renal disease. 2. Metabolic acidosis secondary to chronic kidney disease. Improved postdialysis. On oral bicarb. 3. Chronic kidney disease mineral bone disease with calcium level of 6.4 and phosphorus level of 9.5. On PhosLo. 4. Diabetes mellitus. 5. Hypertension with chronic kidney disease. Stable this morning. 6. Anemia of chronic kidney disease. Iron replete. Plan: Hemodialysis today. Another treatment tomorrow. He will be maintained on Sunday schedule outpatient. Maintain torsemide. Encouraged oral intake. solid waste disposal manager to set up outpatient hemodialysis. PD also discussed. Will further educate outpatient. Also has been referred for transplant eval. Magnesium being replaced.
[2024-08-19 11:15] LABS: Glucose,Whole Blood 107 mg/dL (70-110)
--- NOTE | 2024-08-19 12:07 | P.PN ---
Subjective Progress Note Date: 08/19/24 49 year old M with PMH of CKD, DM, HTN presents to the ED for increased swelling. In the ED he underwent extensive evaluation. BP 151/91, HR 77, RR 18, T 98F, 98% on RA. CBC, CMP significant for RBC 3.58, Hg 10.4, Hct 33.3, Plt 120, Cl 122, bicarb 11, BUN 78, Cr 8.22, Ca 6.4. Phos 9.5. UA neg LE or nitrite, 3+ protein, small blood. Hep B neg. Patient admitted for further workup and management. Vascular surgery consulted, underwent HD catheter right jugular approach. Nephrology on board for HD today and tomorrow. 08/19 Patient was seen and examined. No acute events overnight. No complaints. Undergoing HD today. Plans for HD tomorrow. BMP significant for Cl 111, bicarb 20, BUN 64, Cr 7.1, Ca 6.6. Mag 1.6. General: non toxic, no distress, appears at stated age Derm: warm, dry Head: atraumatic, normocephalic, symmetric Eyes: EOMI, no lid lag, anicteric sclera Mouth: no lip lesion, mucus membranes moist Cardiovascular: S1S2 reg, no murmur, R HD catheter Lungs: Clear to auscultation bilaterally, no rhonchi, no rales , no accessory muscle use Neuro: no focal neuro deficits Psych: Alert, oriented, appropriate affect Based on my assessment of this patient, this patient meets a high complexity level of care. CKD stage V with metabolic acidosis Hypomagnesemia Anemia of chronic disease Hypocalcemia Hyperphosphatemia DM HTN Nephrology on board, HD today and tomorrow. 2g Mag sulfate IV ordered today for Mag of 1.6. Sodium bicarb 650 mg PO BID for metabolic acidosis. ISS with accuchecks ACHS and hypoglycemic precautions. Coreg 6.25 mg PO BID, Amlodipine 10 mg PO QD for HTN. Calcitriol 0.5 mg PO QD. Phoslo 667 mg PO TID. CODE STATUS: FULL CODE. DVT Prophylaxis: Heparin SQ GI Prophylaxis: Designated medical POA if patient is not able to make medical decisions for themselves: I have reviewed the following travel consultant notes: Nephro note. I have reviewed the results of the following tests: Mag, BMP. I have ordered the following tests: I have discussed the care of this patient with the following independent historian: Case management. Family at bedside. I have independently interpreted the following test below: I have discussed the management of this patient with the following physician: Objective - Vital Signs Vital signs: Vital Signs Temp 97.8 F 08/19/24 08:46 Pulse 75 08/19/24 08:46 Resp 16 08/19/24 08:46 BP 138/79 08/19/24 08:46 Pulse Ox 98 08/19/24 08:46 FiO2 Intake & Output 08/18/24 08/19/24 08/19/24 18:59 06:59 18:59 Intake Total 518 Output Total 2400 600 Balance -1882 -600 Weight 131.542 kg 127.6 kg Intake: Oral 118 Hemodialysis 400 Output: Urine 600 Hemodialysis 1400 Hemodialysis Net Amount 1000 Other: Voiding Method Toilet Urinal # Voids 0 - Labs CBC & Chem 7: 08/18/24 06:09 08/19/24 06:45 Labs: Abnormal Lab Results - Last 24 Hours (Table) 08/18/24 08/19/24 Range/Units 20:07 06:45 Chloride 111 H (98-107) mmol/L Carbon Dioxide 20 L (22-30) mmol/L BUN 64 H (9-20) mg/dL Creatinine 7.10 H* (0.66-1.25) mg/dL POC Glucose (mg/dL) 145 H (70-110) mg/dL Calcium 6.7 L (8.4-10.2) mg/dL
[2024-08-19 16:40] LABS: Glucose,Whole Blood 88 mg/dL (70-110)
[2024-08-19] MEDS: MAGNESIUM SULFATE-D5W PMX 1 GM in DEXTROSE/WATER 1 100ML.BAG IVPB SCH (16:47)
[2024-08-19 20:05] LABS: Glucose,Whole Blood 235 mg/dL (70-110)
[2024-08-20 06:09] LABS: Glucose,Whole Blood 79 mg/dL (70-110)
[2024-08-20 07:59] VITALS: TEMP 98.1
--- NOTE | 2024-08-20 10:49 | P.PN ---
Subjective Patient is seen in follow-up for end-stage renal disease. Started on hemodialysis August 18, 2024. No problems with dialysis yesterday. Feels we ll. No active complaints. Vital signs are stable. General: No acute distress. HEENT: Head exam is unremarkable. LUNGS: No audible rhonchi or wheezes. HEART: Rate and Rhythm are regular. ABDOMEN: Nontender. EXTREMITITES: No edema. Objective - Vital Signs Vital signs: Vital Signs Temp 98.1 F 08/20/24 07:58 Pulse 77 08/20/24 07:58 Resp 18 08/20/24 07:58 BP 164/82 08/20/24 07:58 Pulse Ox 98 08/20/24 07:58 FiO2 Intake & Output 08/19/24 08/20/24 08/20/24 18:59 06:59 18:59 Intake Total 988 10 120 Output Total 4400 975 Balance -3412 -965 120 Weight 125.9 kg Intake: IV 20 10 Invasive Line 1 20 10 Oral 568 120 Hemodialysis 400 Output: Urine 2000 975 Hemodialysis 1400 Hemodialysis Net Amount 1000 Other: Voiding Method Toilet Toilet Toilet Urinal Urinal Urinal # Voids 0 3 # Bowel Movements 0 - Labs CBC & Chem 7: 08/18/24 06:09 08/19/24 06:45 Labs: Abnormal Lab Results - Last 24 Hours (Table) 08/19/24 Range/Units 20:03 POC Glucose (mg/dL) 235 H (70-110) mg/dL Assessment and Plan Plan: Assessment: 1. Chronic kidney disease stage V now progressed to end-stage renal disease. 2. Metabolic acidosis secondary to chronic kidney disease. Improved postdialysis. On oral bicarb. 3. Chronic kidney disease mineral bone disease with calcium level of 6.4 and phosphorus level of 9.5. On PhosLo. 4. Diabetes mellitus. 5. Hypertension with chronic kidney disease. Stable. 6. Anemia of chronic kidney disease. Iron replete. Plan: Currently seen while undergoing hemodialysis. He will be maintained on Sunday schedule outpatient. Maintain torsemide. Encouraged oral intake. Increase Coreg frequency to twice daily. manager service desk to set up outpatient hemodialysis. PD also discussed. Will further educate outpatient. Also has been referred for transplant eval. Potential discharge today.
[2024-08-20 11:15] LABS: Glucose,Whole Blood 76 mg/dL (70-110)
--- NOTE | 2024-08-20 12:41 | P.DS ---
Providers Date of admission: 08/17/24 22:18 Expected date of discharge: 08/20/24 Attending physician: Carlos Talbert MD Consults: 08/17/24 22:16 Consult Physician Routine Consulting Provider: Christian Clarke Consult Reason/Comments: low GFR, elevated SCr Do you want consulting provider notified?: Yes, Notify in am 08/18/24 13:15 Consult Physician Urgent Consulting Provider: Yaya Mcmanus Consult Reason/Comments: Permacath placement Do you want consulting provider notified?: Already Contacted Primary care physician: Alhaji Alvarado MD Hospital Course: 49 year old M with PMH of CKD, DM, HTN presents to the ED for increased swelling. In the ED he underwent extensive evaluation. BP 151/91, HR 77, RR 18, T 98F, 98% on RA. CBC, CMP significant for RBC 3.58, Hg 10.4, Hct 33.3, Plt 120, Cl 122, bicarb 11, BUN 78, Cr 8.22, Ca 6.4. Phos 9.5. UA neg LE or nitrite, 3+ protein, small blood. Hep B neg. Patient admitted for further workup and management. Vascular surgery consulted, underwent HD catheter right jugular approach. Nephrology on board for HD successfully underwent multiple dialysis sessions. Cleared for discharge by Nephrology on Sunday schedul e outpatient. 08/20 Patient was seen and examined. Undergoing HD. No complaints. General: non toxic, no distress, appears at stated age Derm: warm, dry Head: atraumatic, normocephalic, symmetric Eyes: EOMI, no lid lag, anicteric sclera Mouth: no lip lesion, mucus membranes moist Cardiovascular: Good distal perfusion in all 4 extremities, R HD catheter Lungs: Breathing comfortably, no accessory muscle use Neuro: no focal neuro deficits Psych: Alert, oriented, appropriate affect Discharge Diagnosis: CKD stage V with metabolic acidosis Hypomagnesemia Anemia of chronic disease Hypocalcemia Hyperphosphatemia DM HTN This complex discharge took 35 minutes to complete. Patient Condition at Discharge: Stable Plan - Discharge Summary Discharge Rx Participant: No New Discharge Prescriptions: New Torsemide [Demadex] 40 mg PO DAILY #30 tab Sodium Bicarbonate Tab 650 mg PO BID tab Continue Atorvastatin [Lipitor] 20 mg PO HS Sertraline HCl [Zoloft] 100 mg PO BID amLODIPine BESYLATE [Norvasc] 10 mg PO DAILY Ergocalciferol (Vitamin D2) [Drisdol (50,000 Iu)] 1,250 mcg PO FR Calcium Acetate [PhosLo] 667 mg PO TID-W/MEALS carvediloL [Coreg] 6.25 mg PO BID calcitrioL [Rocaltrol] 0.5 mcg PO DAILY Discontinued Sodium Bicarbonate Tab 1,300 mg PO BID Discharge Medication List Atorvastatin [Lipitor] 20 mg PO HS 05/09/16 [History] Sertraline HCl [Zoloft] 100 mg PO BID 08/13/17 [History] amLODIPine BESYLATE [Norvasc] 10 mg PO DAILY 08/13/17 [History] Calcium Acetate [PhosLo] 667 mg PO TID-W/MEALS 08/18/24 [History] Ergocalciferol (Vitamin D2) [Drisdol (50,000 Iu)] 1,250 mcg PO FR 08/18/24 [His tory] calcitrioL [Rocaltrol] 0.5 mcg PO DAILY 08/18/24 [History] carvediloL [Coreg] 6.25 mg PO BID 08/18/24 [History] Sodium Bicarbonate Tab 650 mg PO BID tab 08/20/24 [Rx] Torsemide [Demadex] 40 mg PO DAILY #30 tab 08/20/24 [Rx] Follow up Appointment(s)/Referral(s): [facility] [NON-STAFF] - 08/22/24 4:15 pm (Please arrive a half hour early for paperwork on Sunday the , your treatment day at the clinic. Your regular schedule is Sunday, Sunday, Sunday at 4:15PM) Alhaji Alvarado MD [Primary Care Provider] - 1-2 days Activity/Diet/Wound Care/Special Instructions: 49 year old M with PMH of CKD, DM, HTN presents to the ED for increased swelling. In the ED he underwent extensive evaluation. BP 151/91, HR 77, RR 18, T 98F, 98% on RA. CBC, CMP significant for RBC 3.58, Hg 10.4, Hct 33.3, Plt 120, Cl 122, bicarb 11, BUN 78, Cr 8.22, Ca 6.4. Phos 9.5. UA neg LE or nitrite, 3+ protein, small blood. Hep B neg. Patient admitted for further workup and management. Vascular surgery consulted, underwent HD catheter right jugular approach. Nephrology on board for HD successfully underwent multiple dialysis sessions. Cleared for discharge by Nephrology on Sunday schedule outpatient. 08/20 Patient was seen and examined. Undergoing HD. No complaints. General: non toxic, no distress, appears at stated age Derm: warm, dry Head: atraumatic, normocephalic, symmetric Eyes: EOMI, no lid lag, anicteric sclera Mouth: no lip lesion, mucus membranes moist Cardiovascular: Good distal perfusion in all 4 extremities, R HD catheter Lungs: Breathing comfortably, no accessory muscle use Neuro: no focal neuro deficits Psych: Alert, oriented, appropriate affect Discharge Diagnosis: CKD stage V with metabolic acidosis Hypomagnesemia Anemia of chronic disease Hypocalcemia Hyperphosphatemia DM HTN This complex discharge took 35 minutes to complete.
[2024-08-20 14:13] VITALS: BP 170/98; PULSE 75; RESP 16
[2024-08-20] MEDS ORDERED: carvediloL 6.25 MG TAB PO SCH (17:30)
== END 2024-08-20 13:50 | disposition home or self-care (01) | DRG 674 ==
LOC: EC 20:04 → 3SCARD 22:18 → OBSVTOIN 08-20 11:16
PROVIDERS: ADMIT Internal Medicine; ATTEND Internal Medicine
PROC: 5A1D70Z Performance of Urinary Filtration, Intermittent, Less than 6 Hours Per Day (ICD-10-PCS; 2024-08-18)
PROC: 0JH63XZ Insertion of Tunneled Vascular Access Device into Chest Subcutaneous Tissue and Fascia, Percutaneous Approach (ICD-10-PCS; principal; 2024-08-18 12:55)
PROC: 02HV33Z Insertion of Infusion Device into Superior Vena Cava, Percutaneous Approach (ICD-10-PCS; 2024-08-18 12:55)
PROC: B5181ZA Fluoroscopy of Superior Vena Cava using Low Osmolar Contrast, Guidance (ICD-10-PCS; 2024-08-18 12:55)
DX: I12.0 Hypertensive chronic kidney disease with stage 5 chronic kidney disease or end stage renal disease (principal); E87.20 Acidosis, unspecified; N18.6 End stage renal disease; D63.1 Anemia in chronic kidney disease; E11.22 Type 2 diabetes mellitus with diabetic chronic kidney disease; E66.9 Obesity, unspecified; E83.39 Other disorders of phosphorus metabolism; E83.42 Hypomagnesemia; E83.51 Hypocalcemia; F32.A Depression, unspecified; M89.8X9 Other specified disorders of bone, unspecified site; Z68.34 Body mass index [BMI] 34.0-34.9, adult; Z79.84 Long term (current) use of oral hypoglycemic drugs; Z79.899 Other long term (current) drug therapy; Z82.49 Family history of ischemic heart disease and other diseases of the circulatory system
CPT/HCPCS: 36415; 36558; 71045; 76937; 77001; 80048; 80053; 81001; 82728; 83036; 83540; 83550; 83735; 84100; 85025; 86704; 86706; 87340; 90935; 93005; 96372; 96374; 99285

== ENCOUNTER 2024-10-24 07:29 | Observation (INO) | payer BC, OTHER ==
[2024-10-24 07:37] VITALS: TEMP 98.5
--- NOTE | 2024-10-24 08:26 | ED ---
Recheck HPI - General Chief Complaint: Recheck/Abnormal Lab/Rx Stated Complaint: Cath issues Time Seen by Provider: 10/24/24 07:39 Source: patient, RN notes reviewed Mode of arrival: ambulatory Limitations: no limitations - History of Present Illness Initial Comments: This is a 49-year-old male who presents to the emergency department for problems with his dialysis catheter. Patient has a dialysis catheter in the right chest wall. He is still waiting for the fistula in his left arm to mature. He is supposed to receive hemodialysis Sunday, Sunday, and Sunday. On Sunday this week when he was changing, his shirt got caught on the catheter and seemed to pull it out a little bit. He went to dialysis Sunday and they were still able to use it. However, when he went to dialysis today and they removed the bandage they were concerned that it dislodged even more, prompting them to send him here for evaluation. They did not try to access the port and he thus did not receive dialysis today. Denies any discomfort with this. - Related Data Home Medications Medication Instructions Recorded Confirmed Atorvastatin [Lipitor] 20 mg PO HS 05/09/16 08/18/24 Sertraline HCl [Zoloft] 100 mg PO BID 08/13/17 08/18/24 amLODIPine BESYLATE [Norvasc] 10 mg PO DAILY 08/13/17 08/18/24 Calcium Acetate [PhosLo] 667 mg PO TID-W/MEALS 08/18/24 08/18/24 Ergocalciferol (Vitamin D2) 1,250 mcg PO FR 08/18/24 08/18/24 [Drisdol (50,000 Iu)] calcitrioL [Rocaltrol] 0.5 mcg PO DAILY 08/18/24 08/18/24 carvediloL [Coreg] 6.25 mg PO BID 08/18/24 08/18/24 Previous Rx's Medication Instructions Recorded Sodium Bicarbonate Tab 650 mg PO BID tab 08/20/24 Torsemide [Demadex] 40 mg PO DAILY #30 tab 08/20/24 Allergies Allergy/AdvReac Type Severity Reaction Status Date / Time No Known Allergies Allergy Verified 10/24/24 07:33 Review of Systems ROS Statement: Those systems with pertinent positive or pertinent negative responses have been documented in the HPI. ROS Other: All systems not noted in ROS Statement are negative. Past Medical History Past Medical History: Diabetes Mellitus, GERD/Reflux, Hypertension, Renal Disease Additional Past Medical History / Comment(s): . History of Any Multi-Drug Resistant Organisms: None Reported, MRSA Date of last positivie culture/infection: 02/22/2016 MDRO Source:: left foot Past Surgical History: Bariatric Surgery, Orthopedic Surgery Additional Past Surgical History / Comment(s): , amputation of smallest toe on lt foot, amputation of the 4th toe on the right foot Past Anesthesia/Blood Transfusion Reactions: No Reported Reaction Past Psychological History: Depression Smoking Status: Never smoker Past Alcohol Use History: Occasional Past Drug Use History: None Reported - Past Family History Brother(s) Family Medical History: Cancer Father Family Medical History: Cancer Mother Family Medical History: Coronary Artery Disease (CAD), Deep Vein Thrombosis (DVT) General Exam Limitations: no limitations General appearance: alert, in no apparent distress Head exam: Present: atraumatic, normocephalic, normal inspection Respiratory exam: Present: normal lung sounds bilaterally. Absent: respiratory distress, wheezes, rales, rhonchi, stridor Cardiovascular Exam: Present: regular rate, normal rhythm, normal heart sounds. Absent: systolic murmur, diastolic murmur, rubs, gallop, clicks Neurological exam: Present: alert, oriented X3, CN II-XII intact Psychiatric exam: Present: normal affect, normal mood Skin exam: Present: other (Dialysis catheter in the right chest wall seems to have dislodged around 0.5 to 1 inches.) Course Vital Signs 10/24/24 10/24/24 07:33 11:25 Temperature 98.5 F Pulse Rate 83 69 Respiratory 18 16 Rate Blood Pressure 180/78 134/90 O2 Sat by Pulse 99 99 Oximetry Medical Decision Making - Medical Decision Making This is a 49-year-old male who presents to the emergency department for problems with his dialysis catheter. Was pt. sent in by a medical professional or institution? @ -Dialysis center Did you speak to anyone other than the patient for history? @ -No Did you review nursing and triage notes? @ -Yes, and I agree, it is accurate with regards to the patient's symptoms. Were old charts reviewed? @ -No Differential Diagnosis? @ -Dialysis catheter malfunction, misplacement, dislodged, this is not meant to be an all-inclusive list. EKG interpreted by me (3pts min.)? @ -Not obtained X-rays interpreted by me (1pt min.)? @ -Chest x-ray obtained. My interpretation identifies the dialysis catheter in the right chest wall terminating in the SVC. CT interpreted by me (1pt min.)? @ -Not obtained U/S interpreted by me (1pt. min.)? @ -Not obtained What testing was considered but not performed? (CT, X-rays, U/S, labs)? Why? @ -None What meds were considered but not given? Why? @ -None Did you discuss the management of the patient with other professionals? @ -The dialysis nurse who spoke with Dr. Abel, nephrology, who requested vascular clearance before attempting to access the port. Dr. Mcmanus will take the patient to the tin can laborer to replace the catheter due to risk of infection if he were to reinsert it. Did you reconcile home meds? @ -No Was smoking cessation discussed for >3mins.? @ -No Was critical care preformed (if so, how long)? @ -No Were there social determinants of health that impacted care today? How? (Homelessness, low income, unemployed, alcoholism, drug addiction, transpo rtation, low edu. Level, literacy, decrease access to med. care, m[facility], rehab)? @ -No Was there de-escalation of care discussed even if they declined? (Discuss DNR or withdrawal of care, Hospice)? @ -No What co-morbidities impacted this encounter? (DM, HTN, Smoking, COPD, CAD, Cancer, CVA, Hep., AIDS, mental health diagnosis, sleep apnea, morbid obesity)? @ -Renal failure on dialysis Was patient admitted / discharged? @ -The bandages were removed and the catheter appeared to have slightly dislodged by slightly less than an inch. Patient was not experiencing any discomfort. There was no active bleeding. Chest x-ray obtained verifying the catheter in the right chest wall terminating in the SVC. The dialysis nurse came down to evaluate the catheter. They called Dr. Abel, nephrology, who requested vascular either round on the patient or review the x-ray report to give clearance before attempting to access the port. Dr. Mcmanus came to evaluate the patient in the emergency department. He was concerned because the cuff was exposed that if he tried to reinsert it, it would pose risk for infect ion. He subsequently took the patient to the Process Improvement Engineer to replace the dialysis catheter. The plan was to initially admit him to observation and to have him possibly get dialysis after having the catheter inserted. However, after replacing the catheter they decided he could go to the dialysis clinic to get the dialysis done outpatient. Per Dr. Mcmanus, patient was cleared for discharge from his standpoint. The plan for observation admission was then canceled and patient discharged home from the extended stay unit. Case discussed with ED attending Dr. Keating. Undiagnosed new problem with uncertain prognosis? @ -None Drug Therapy requiring intensive monitoring for toxicity (Heparin, Nitro, Insulin, Cardizem)? @ -None Were any procedures done? @ -None Diagnosis/symptom? @ -Dislodged dialysis catheter Acute, or Chronic, or Acute on Chronic? @ -Acute Uncomplicated (without systemic symptoms) or Complicated (systemic symptoms)? @ -Uncomplicated Side effects of treatment? @ -None Exacerbation, Progression, or Severe Exacerbation] @ -Not applicable Poses a threat to life or bodily function? @ -If he is unable to get dialysis it can become life-threatening - Lab Data Result diagrams: 10/24/24 11:34 10/24/24 11:34 Lab Results 10/24/24 10/24/24 10/24/24 Range/Units 11:34 11:34 11:34 WBC 5.2 (3.8-10.6) k/uL RBC 3.24 L (4.30-5.90) m/uL Hgb 10.1 L (13.0-17.5) gm/dL Hct 29.9 L (39.0-53.0) % MCV 92.2 (80.0-100.0) fL MCH 31.1 (25.0-35.0) pg MCHC 33.7 (31.0-37.0) g/dL RDW 13.6 (11.5-15.5) % Plt Count 125 L (150-450) k/uL MPV 8.9 Neutrophils % 63 % Lymphocytes % 23 % Monocytes % 6 % Eosinophils % 5 % Basophils % 1 % Neutrophils # 3.3 (1.3-7.7) k/uL Lymphocytes # 1.2 (1.0-4.8) k/uL Monocytes # 0.3 (0-1.0) k/uL Eosinophils # 0.2 (0-0.7) k/uL Basophils # 0.1 (0-0.2) k/uL PT 10.3 (10.0-12.5) sec INR 0.9 (<1.2) APTT 21.0 L (22.0-30.0) sec Sodium 143 (137-145) mmol/L Potassium 4.1 (3.5-5.1) mmol/L Chloride 105 (98-107) mmol/L Carbon Dioxide 26 (22-30) mmol/L Anion Gap 12 mmol/L BUN 63 H (9-20) mg/dL Creatinine 6.96 H (0.66-1.25) mg/dL Est GFR (CKD-EPI)AfAm 10 (>60 ml/min/1.73 sqM) Est GFR (CKD-EPI)NonAf 8 (>60 ml/min/1.73 sqM) Glucose 123 H (74-99) mg/dL Calcium 8.6 (8.4-10.2) mg/dL Total Bilirubin 0.3 (0.2-1.3) mg/dL AST 23 (17-59) U/L ALT 23 (4-49) U/L Alkaline Phosphatase 102 (38-126) U/L Total Protein 6.7 (6.3-8.2) g/dL Albumin 4.1 (3.5-5.0) g/dL - Radiology Data Radiology results: report reviewed, image reviewed Disposition Clinical Impression: Complication, dialysis catheter clot or failure, ESRD (end stage renal disease) on dialysis Disposition: HOME SELF-CARE Is patient prescribed a controlled substance at d/c from ED?: No
--- NOTE | 2024-10-24 08:31 | XR ---
EXAMINATION TYPE: XR chest 2V DATE OF EXAM: 10/24/2024 CLINICAL HISTORY: Verify dialysis port placement. TECHNIQUE: Frontal and lateral views of the chest are obtained. COMPARISON: Chest x-ray August 18, 2024 FINDINGS: There is right internal jugular dialysis catheter terminating in SVC. There is no focal ai r space opacity, pleural effusion, or pneumothorax seen bilaterally. The cardiac silhouette size rem ains within normal limits. The osseous structures are intact. IMPRESSION: As above. [facility], , 10/24/2024 8:28 AM
[2024-10-24 11:25] VITALS: BP 134/90; RESP 16
[2024-10-24] MEDS ORDERED: ACETAMINOPHEN TAB 325 MG TAB PO PRN (11:37)
[2024-10-24] MEDS ORDERED: NALOXONE 0.4 MG/ML 1 ML VIAL IV PRN (11:37)
[2024-10-24] MEDS ORDERED: HYDROcodone/APAP 5-325MG 1 EACH TAB PO PRN (11:37)
[2024-10-24] MEDS ORDERED: MORPHINE SULFATE 4 MG/ML SYRINGE IV PRN (11:37)
[2024-10-24] MEDS ORDERED: ONDANSETRON 4 MG/2 ML VIAL IVP PRN (11:37)
[2024-10-24 11:42] LABS: Basophils # (A) 0.1 k/uL (0-0.2); Basophils % (A) 1 %; Eosinophils # (A) 0.2 k/uL (0-0.7); Eosinophils % (A) 5 %; HCT 29.9 % (39.0-53.0); HGB 10.1 gm/dL (13.0-17.5); Lymphocytes # (A) 1.2 k/uL (1.0-4.8); Lymphocytes % (A) 23 %; MCH 31.1 pg (25.0-35.0); MCHC 33.7 g/dL (31.0-37.0); MCV 92.2 fL (80.0-100.0); Mean Platelet Volume 8.9; Monocytes # (A) 0.3 k/uL (0-1.0); Monocytes % (A) 6 %; Neutrophils # (A) 3.3 k/uL (1.3-7.7); Neutrophils % (A) 63 %; Platelet Count 125 k/uL (150-450); RBC 3.24 m/uL (4.30-5.90); RDW 13.6 % (11.5-15.5); WBC 5.2 k/uL (3.8-10.6)
[2024-10-24 12:01] LABS: ALT 23 U/L (4-49); AST 23 U/L (17-59); African American GFR (CKD) 10 (>60 ml/min/1.73 sqM); Albumin 4.1 g/dL (3.5-5.0); Alkaline Phosphatase 102 U/L (38-126); Anion Gap 12 mmol/L; Blood Urea Nitrogen 63 mg/dL (9-20); Calcium 8.6 mg/dL (8.4-10.2); Carbon Dioxide 26 mmol/L (22-30); Chloride 105 mmol/L (98-107); Glucose 123 mg/dL (74-99); Non-African American GFR(CKD) 8 (>60 ml/min/1.73 sqM); Potassium 4.1 mmol/L (3.5-5.1); Sodium 143 mmol/L (137-145); Total Bilirubin 0.3 mg/dL (0.2-1.3); Total Protein 6.7 g/dL (6.3-8.2)
[2024-10-24] MEDS: LIDOCAINE 1% INJ 10MG/ML (20 ML MDV) SQ ONE ×2 (12:10→12:17)
[2024-10-24] MEDS: SODIUM CHLORIDE 0.9% 500 ML 500 ML IV ONE (12:20)
[2024-10-24] MEDS: HEPARIN SODIUM 1,000 UN/ML (10ML VL) IVP ONE (12:24)
[2024-10-24 12:25] LABS: INR 0.9 (<1.2); Prothrombin Time 10.3 sec (10.0-12.5)
--- NOTE | 2024-10-24 12:39 | IR ---
EXAMINATION TYPE: IR cvc insert central tunneled DATE OF EXAM: 10/24/2024 CLINICAL HISTORY: Failed dialysis. TECHNIQUE: Fluoroscopy. COMPARISON: None. FINDINGS: Fluoroscopic guidance was provided during Central tunneled dialysis catheter insertion pro cedure performed by Dr. Mcmanus. A total of 60 seconds of fluoroscopic time was utilized during the procedure and 133 spot images was acquired. TOTAL DAP= 302.03 microGy x m2. IMPRESSION: As Above. [facility], , 10/24/2024 12:37 PM
[2024-10-24 12:56] VITALS: PULSE 73
--- NOTE | 2024-10-24 13:14 | XR ---
EXAMINATION TYPE: XR chest 1V portable DATE OF EXAM: 10/24/2024 CLINICAL HISTORY: Hemodialysis catheter insertion. TECHNIQUE: Single AP portable upright view of the chest is obtained. COMPARISON: Chest x-ray from earlier today FINDINGS: There is a large bore right-sided internal jugular dialysis catheter terminating in SVC. N o pneumothorax is seen. Lungs remain clear. Cardiac silhouette size is normal in size. Osseous struct ures are intact. IMPRESSION: As above. [facility], , 10/24/2024 1:11 PM
--- NOTE | 2024-10-24 20:36 | OP ---
OPERATIVE REPORT DATE OF SERVICE : PREOPERATIVE DIAGNOSIS: Acute on chronic renal failure, exposed dialysis catheter cuff. POSTOPERATIVE DIAGNOSIS: Acute on chronic renal failure, exposed dialysis catheter cuff. PROCEDURE PERFORMED: Exchange of dialysis catheter, right jugular approach. DESCRIPTION OF PROCEDURE: The patient was brought to the boat laborer. Right side of the neck and chest was prepped and draped in the usual sterile manner. 1 g of Kefzol IV given and a small incision was made on the neck under local anesthesia. The catheter was identified and divided and we passed a guidewire which was parked at the inferior vena cava. An old catheter was removed. A new tunnel was created. Through the new tunnel, we brought a 23 cm dialysis catheter. A sheath was advanced on the top of the guidewire. Through the sheath, we introduced dialysis catheter. Sheath was removed. Tip of the catheter in superior vena cavoatrial junction, flushed with heparin saline and hep-locked. Incision was closed with Vicryl and 3-0 nylon. Dressing applied. The patient tolerated the procedure well. Plan is, the patient will be reviewed by Dr. Abel of Nephrology for possible dialysis today. MMODL / IJN: [id number] /
--- NOTE | 2024-10-27 06:43 | CONS ---
CONSULTATION HISTORY OF PRESENT ILLNESS: This is a 49-year-old gentleman, well known to me in the past. The patient had a right IJ catheter placed in the past. Today, went for dialysis and found the cuff was out. The patient came to the emergency room and consulted for placement of an exchange of dialysis catheter. MEDICAL HISTORY: History of diabetes and chronic renal failure. The patient is having dialysis 3 times a week. PHYSICAL EXAMINATION: NECK: Supple. No bruit appreciated. CHEST: Clear to auscultation. First and second sounds present. ABDOMEN: Soft and nontender. EXTREMITIES: Femorals are 1+ bilaterally. The patient had a right IJ catheter. Cuff of the catheter is exposed. PLAN: Placement of a new dialysis catheter. Risks and complications discussed. MMODL / IJN: [id number] /
== END 2024-10-24 13:49 | disposition home or self-care (01) ==
LOC: EC 07:29 → 6NMEDSUR 11:45
PROVIDERS: ADMIT Student in an Organized Health Care Education/Training Program; ATTEND Student in an Organized Health Care Education/Training Program
DX: T82.9XXA Unspecified complication of cardiac and vascular prosthetic device, implant and graft, initial encounter (principal); Y84.8 Other medical procedures as the cause of abnormal reaction of the patient, or of later complication, without mention of misadventure at the time of the procedure; E11.22 Type 2 diabetes mellitus with diabetic chronic kidney disease; I12.0 Hypertensive chronic kidney disease with stage 5 chronic kidney disease or end stage renal disease; N17.9 Acute kidney failure, unspecified; N18.6 End stage renal disease; Z82.49 Family history of ischemic heart disease and other diseases of the circulatory system; Z99.2 Dependence on renal dialysis
CPT/HCPCS: 99284; 36415; 36581; 80053; 85025; 85610; 85730; 71045; 71046; C1769; C1750; J0690; J2003; J1644

== ENCOUNTER 2025-01-21 14:39 | Inpatient (IN) | payer BC, OTHER ==
--- NOTE | 2025-01-21 15:51 | ED ---
General Adult HPI - General Chief complaint: Fever Stated complaint: fever Time Seen by Provider: 01/21/25 14:55 Source: patient Mode of arrival: ambulatory Limitations: no limitations - History of Present Illness Initial comments: 49-year-old male with past medical history of end-stage renal disease on hemodialysis who presents to the emergency department reporting fever. States he awoke this morning and had some chills. He found he had a fever. He called his dialysis clinic as he was supposed to get dialysis today. They stated that they could not take the patient with a fever and he needed to talk to his doctor. His doctor told him to come into the emergency department. He denies any symptoms besides fatigue and chills. He denies cough or shortness of breath. No sick contacts. No abdominal pain. Has had mild diarrhea. Continues to make urine. Denies any changes such as dysuria or hematuria. No black or bloody stools. Evaluation of the patient's skin does demonstrate some red streaking to the right foot concerning for possible cellulitis for which the patient has had infection here previously. He denies any pain. He does have a catheter in his right chest wall. States that they typically have been using his fistula in his left upper extremity. No other alleviating, precipitating or modifying factors - Related Data Home Medications Medication Instructions Recorded Confirmed Atorvastatin [Lipitor] 20 mg PO HS 05/09/16 01/21/25 Sertraline HCl [Zoloft] 100 mg PO BID 08/13/17 01/21/25 amLODIPine BESYLATE [Norvasc] 10 mg PO DAILY 08/13/17 01/21/25 Ergocalciferol (Vitamin D2) 1,250 mcg PO MOWEFR 08/18/24 01/21/25 [Drisdol (50,000 Iu)] ALPRAZolam [Xanax] 0.25 mg PO DIRECTED 01/21/25 01/21/25 Calcium Acetate 667mg Capsule 1,334 mg PO TID-W/MEALS 01/21/25 01/21/25 Renaplex-D 1 tab PO DAILY 01/21/25 01/21/25 Tenapanor HCl [Xphozah] 30 mg PO AC-BRKFST 01/21/25 01/21/25 lisinopriL 40 mg PO DAILY 01/21/25 01/21/25 Allergies Allergy/AdvReac Type Severity Reaction Status Date / Time No Known Allergies Allergy Verified 01/21/25 19:03 Review of Systems ROS Statement: Those systems with pertinent positive or pertinent negative responses have been documented in the HPI. ROS Other: All systems not noted in ROS Statement are negative. Past Medical History Past Medical History: Diabetes Mellitus, GERD/Reflux, Hypertension, Renal Disease Additional Past Medical History / Comment(s): . History of Any Multi-Drug Resistant Organisms: None Reported, MRSA Date of last positivie culture/infection: 02/22/2016 MDRO Source:: left foot Past Surgical History: Bariatric Surgery, Orthopedic Surgery Additional Past Surgical History / Comment(s): , amputation of smallest toe on lt foot, amputation of the 4th toe on the right foot Past Anesthesia/Blood Transfusion Reactions: No Reported Reaction Past Psychological History: Depression Smoking Status: Never smoker Past Alcohol Use History: Occasional Past Drug Use History: None Reported - Past Family History Brother(s) Family Medical History: Cancer Father Family Medical History: Cancer Mother Family Medical History: Coronary Artery Disease (CAD), Deep Vein Thrombosis (DVT) General Exam Limitations: no limitations Course Vital Signs 01/21/25 01/21/25 01/21/25 14:53 18:38 19:51 Temperature 103.0 F H 99.3 F 98.7 F Pulse Rate 91 72 Respiratory 18 19 Rate Blood Pressure 161/77 96/51 O2 Sat by Pulse 97 100 Oximetry Medical Decision Making - Medical Decision Making Was pt. sent in by a medical professional or institution (, PA, TESTING AND REGULATING CHIEF, urgent care, hospital, or long term...) When possible be specific @ -[No] Did you speak to anyone other than the patient for history (EMS, parent, family, police, friend...)? What history was obtained from this source @ -[No] Did you review nursing and triage notes (agree or disagree)? Why? @ -[I reviewed and agree with nursing and triage notes] Were old charts reviewed (outside hosp., previous admission, EMS record, old EKG, old radiological studies, urgent care reports/EKG's, long term records)? Report findings @ -[No old charts were reviewed] Differential Diagnosis (chest pain, altered mental status, abdominal pain women, abdominal pain men, vaginal bleeding, weakness, fever, dyspnea, syncope, headache, dizziness, GI bleed, back pain, seizure, CVA, palpatations, mental health, musculoskeletal)? @ -[not applicable] EKG interpreted by me (3pts min.). @ -Yes and demonstrates sinus rhythm with a rate of 83. [place] interval 188. QRS 86. QTc of 358. No acute ST segment elevations or depressions X-rays interpreted by me (1pt min.). @ -[None done] CT interpreted by me (1pt min.). @ -[None done] U/S interpreted by me (1pt. min.). @ -[None done] What testing was considered but not performed or refused? (CT, X-rays, U/S, labs)? Why? @ -[None] What meds were considered but not given or refused? Why? @ -[None] Did you discuss the management of the patient with other professionals (professionals i.e. , PA, TESTING AND REGULATING CHIEF, lab, RT, psych nurse, social security assessor, general ledger bookkeeper, teacher, chief security and safety officer, correctional counselor/case manager)? Give summary @ -[No] Was smoking cessation discussed for >3mins.? @ -[No] Was critical care preformed (if so, how long)? @ -[No] Were there social determinants of health that impacted care today? How? (Homelessness, low income, unemployed, alcoholism, drug addiction, transportation, low edu. Level, literacy, decrease access to med. care, snf, rehab)? @ -[No] Was there de-escalation of care discussed even if they declined (Discuss DNR or withdrawal of care, Hospice)? DNR status @ -[No] What co-morbidities impacted this encounter? (DM, HTN, Smoking, COPD, CAD, Cancer, CVA, ARF, Chemo, Hep., AIDS, mental health diagnosis, sleep apnea, morbid obesity)? @ -[None] Was patient admitted / discharged? Hospital course, mention meds given and route, prescriptions, significant lab abnormalities, going to OR and other pertinent info. @ -[hospital course] Undiagnosed new problem with uncertain prognosis? @ -[No] Drug Therapy requiring intensive monitoring for toxicity (Heparin, Nitro, Insulin, Cardizem)? @ -[No] Were any procedures done? @ -[No] Diagnosis/symptom? @ -[default] Acute, or Chronic, or Acute on Chronic? @ -[default] Uncomplicated (without systemic symptoms) or Complicated (systemic symptoms)? @ -[default] Side effects of treatment? @ -[No] Exacerbation, Progression, or Severe Exacerbation? @ -[No] Poses a threat to life or bodily function? How? (Chest pain, [place], [place], pneumonia, PE, COPD, DKA, ARF, appy, cholecystitis, CVA, Diverticulitis, Homicidal, Suicidal, threat to staff... and all critical care pts) @ -[No] - Lab Data Result diagrams: 01/21/25 15:55 01/21/25 15:55 Lab Results 01/21/25 01/21/25 01/21/25 Range/Units 15:55 15:55 15:55 WBC 9.66 (4.50-10.00) 10*3/uL RBC 3.36 L (4.40-5.60) 10*6/uL Hgb 10.7 L (13.0-17.0) g/dL Hct 31.7 L (39.6-50.0) % MCV 94.3 (80.0-97.0) fL MCH 31.8 (27.0-32.0) pg MCHC 33.8 (32.0-37.0) g/dL Plt Count 118 L (140-440) 10*3/uL MPV 10.7 (9.5-12.2) fL Immature Gran % (Auto) 0.5 % Neutrophils % 77.2 % Lymphocytes % 9.0 % Monocytes % 10.4 % Eosinophils % 2.4 % Basophils % 0.5 % Immature Gran # 0.05 H (0.00-0.04) 10*3/uL Neutrophils # 7.46 (1.80-7.70) 10*3/uL Lymphocytes # 0.87 L (0.90-5.00) 10*3/uL Monocytes # 1.00 (0.20-1.00) 10*3/uL Eosinophils # 0.23 (0.04-0.35) 10*3/uL Basophils # 0.05 (0.00-0.10) 10*3/uL Sodium 135 L (137-145) mmol/L Potassium 6.3 H* (3.5-5.1) mmol/L Chloride 101 (98-107) mmol/L Carbon Dioxide 20 L (22-30) mmol/L Anion Gap 14 mmol/L BUN 65 H (9-20) mg/dL Creatinine 8.56 H* (0.66-1.25) mg/dL Est GFR (CKD-EPI)AfAm 7 (>60 ml/min/1.73 sqM) Est GFR (CKD-EPI)NonAf 6 (>60 ml/min/1.73 sqM) Glucose 105 H (74-99) mg/dL Plasma Lactic Acid Jigar 0.8 (0.7-2.0) mmol/L Calcium 9.4 (8.4-10.2) mg/dL Phosphorus 2.6 (2.5-4.5) mg/dL Magnesium 2.6 H (1.6-2.3) mg/dL Total Bilirubin 0.7 (0.2-1.3) mg/dL AST 31 (17-59) U/L ALT 23 (4-49) U/L Alkaline Phosphatase 94 (38-126) U/L Total Protein 7.1 (6.3-8.2) g/dL Albumin 4.3 (3.5-5.0) g/dL Influenza Type A (PCR) (Not Detectd) Influenza Type B (PCR) (Not Detectd) RSV (PCR) (Not Detectd) SARS-CoV-2 (PCR) (Not Detectd) 01/21/25 Range/Units 15:55 WBC (4.50-10.00) 10*3/uL RBC (4.40-5.60) 10*6/uL Hgb (13.0-17.0) g/dL Hct (39.6-50.0) % MCV (80.0-97.0) fL MCH (27.0-32.0) pg MCHC (32.0-37.0) g/dL Plt Count (140-440) 10*3/uL MPV (9.5-12.2) fL Immature Gran % (Auto) % Neutrophils % % Lymphocytes % % Monocytes % % Eosinophils % % Basophils % % Immature Gran # (0.00-0.04) 10*3/uL Neutrophils # (1.80-7.70) 10*3/uL Lymphocytes # (0.90-5.00) 10*3/uL Monocytes # (0.20-1.00) 10*3/uL Eosinophils # (0.04-0.35) 10*3/uL Basophils # (0.00-0.10) 10*3/uL Sodium (137-145) mmol/L Potassium (3.5-5.1) mmol/L Chloride (98-107) mmol/L Carbon Dioxide (22-30) mmol/L Anion Gap mmol/L BUN (9-20) mg/dL Creatinine (0.66-1.25) mg/dL Est GFR (CKD-EPI)AfAm (>60 ml/min/1.73 sqM) Est GFR (CKD-EPI)NonAf (>60 ml/min/1.73 sqM) Glucose (74-99) mg/dL Plasma Lactic Acid Jigar (0.7-2.0) mmol/L Calcium (8.4-10.2) mg/dL Phosphorus (2.5-4.5) mg/dL Magnesium (1.6-2.3) mg/dL Total Bilirubin (0.2-1.3) mg/dL AST (17-59) U/L ALT (4-49) U/L Alkaline Phosphatase (38-126) U/L Total Protein (6.3-8.2) g/dL Albumin (3.5-5.0) g/dL Influenza Type A (PCR) Not Detected (Not Detectd) Influenza Type B (PCR) Not Detected (Not Detectd) RSV (PCR) Not Detected (Not Detectd) SARS-CoV-2 (PCR) Not Detected (Not Detectd) Disposition Clinical Impression: Cellulitis and abscess of foot, ESRD (end stage renal disease) on dialysis, Fever, Hyperkalemia Disposition: ADMITTED IP TO THIS [facility] Condition: Serious Is patient prescribed a controlled substance at d/c from ED?: No Time of Disposition: 19:14 Decision to Admit Reason: Admit from EC Decision Date: 01/21/25 Decision Time: 19:14
[2025-01-21] MEDS: ACETAMINOPHEN TAB 500 MG TAB PO STA (16:07)
[2025-01-21 16:55] LABS: Basophils # (A) 0.05 10*3/uL (0.00-0.10); Basophils % (A) 0.5 %; Eosinophils # (A) 0.23 10*3/uL (0.04-0.35); Eosinophils % (A) 2.4 %; HCT 31.7 % (39.6-50.0); HGB 10.7 g/dL (13.0-17.0); Lymphocytes # (A) 0.87 10*3/uL (0.90-5.00); MCH 31.8 pg (27.0-32.0); MCHC 33.8 g/dL (32.0-37.0); MCV 94.3 fL (80.0-97.0); Mean Platelet Volume 10.7 fL (9.5-12.2); Monocytes % (A) 10.4 %; Neutrophils # (A) 7.46 10*3/uL (1.80-7.70); Neutrophils % (A) 77.2 %; Platelet Count 118 10*3/uL (140-440); RBC 3.36 10*6/uL (4.40-5.60); WBC 9.66 10*3/uL (4.50-10.00)
[2025-01-21 17:07] LABS: ALT 23 U/L (4-49); AST 31 U/L (17-59); African American GFR (CKD) 7 (>60 ml/min/1.73 sqM); Albumin 4.3 g/dL (3.5-5.0); Alkaline Phosphatase 94 U/L (38-126); Anion Gap 14 mmol/L; Blood Urea Nitrogen 65 mg/dL (9-20); Calcium 9.4 mg/dL (8.4-10.2); Carbon Dioxide 20 mmol/L (22-30); Chloride 101 mmol/L (98-107); Glucose 105 mg/dL (74-99); Magnesium 2.6 mg/dL (1.6-2.3); Non-African American GFR(CKD) 6 (>60 ml/min/1.73 sqM); Phosphorus 2.6 mg/dL (2.5-4.5); Sodium 135 mmol/L (137-145); Total Bilirubin 0.7 mg/dL (0.2-1.3); Total Protein 7.1 g/dL (6.3-8.2)
[2025-01-21 17:09] LABS: Potassium 6.3 mmol/L (3.5-5.1)
[2025-01-21 17:31] LABS: Influenza A Not Detected (Not Detectd); Influenza B Not Detected (Not Detectd); RSV Not Detected (Not Detectd)
--- NOTE | 2025-01-21 18:12 | XR ---
EXAMINATION TYPE: XR chest 2V DATE OF EXAM: 01/21/2025 5:35 PM COMPARISON: Chest radiographs from 10/24/2024 CLINICAL INDICATION: Male, 49 years old with history of fever; TECHNIQUE: XR chest 2V Frontal and lateral views of the chest. FINDINGS: Lungs/Pleura: There is no evidence of pleural effusion, focal consolidation, or pneumothorax. Pulmonary vascularity: Unremarkable. Heart/mediastinum: Cardiomediastinal silhouette is unremarkable. Musculoskeletal: No acute osseous pathology. Right central venous catheter terminating in the superior vena cava. IMPRESSION: No acute cardiopulmonary disease/process. [facility], , 01/21/2025 6:10 PM
[2025-01-21] MEDS ORDERED: VANCOMYCIN IV PER PHARMACY 1 EACH MISC MISCELLANE PRN (19:12)
[2025-01-21] MEDS ORDERED: NALOXONE 0.4 MG/ML 1 ML VIAL IV PRN (19:15)
[2025-01-21] MEDS ORDERED: ACETAMINOPHEN TAB 325 MG TAB PO PRN (19:15)
[2025-01-21] MEDS ORDERED: ALPRAZolam 0.25 MG TAB PO SCH (19:30)
[2025-01-21] MEDS: VANCOMYCIN 2,000 MG in SODIUM CHLORIDE 0.9% 500 ML 500 ML IVPB ONE (19:49)
[2025-01-21] MEDS: SODIUM ZIRCONIUM CYCLOSILICATE 10 GM PACKET PO ONE (20:27)
[2025-01-21 20:28] LABS: Glucose,Whole Blood 166 mg/dL (70-110)
[2025-01-21] MEDS: SODIUM BICARB 8.4% 50 ML SYR (1 MEQ/ML) IV ONE (20:28)
[2025-01-21] MEDS: ATORVASTATIN 20 MG TAB PO SCH (20:29)
[2025-01-21] MEDS: SERTRALINE 100 MG TAB PO SCH (20:29)
[2025-01-21] MEDS: DEXTROSE 50% SYRINGE 50 ML IVP ONE (20:34)
[2025-01-21] MEDS: INSULIN REGULAR 100 UNIT/ML VIAL (IV) IV ONE (20:35)
[2025-01-21] MEDS: CEFEPIME 2 GM in SODIUM CHLORIDE 0.9% 100 ML IVPB STA (22:17)
[2025-01-22] MEDS: CALCIUM ACETATE 667 MG TAB PO SCH (08:08)
[2025-01-22] MEDS: amLODIPine 10 MG TAB PO SCH (08:09)
[2025-01-22 08:40] LABS: Basophils # (A) 0.02 X 10*3/uL (0.00-0.10); Basophils % (A) 0.3 %; Eosinophils % (A) 2.9 %; HCT 31.1 % (39.6-50.0); HGB 10.3 g/dL (13.0-17.0); Lymphocytes # (A) 0.53 X 10*3/uL (0.90-5.00); Lymphocytes % (A) 7.8 %; MCH 31.7 pg (27.0-32.0); MCHC 33.1 g/dL (32.0-37.0); MCV 95.7 FL (80.0-97.0); Mean Platelet Volume 11.1 FL (9.5-12.2); Monocytes % (A) 10.3 %; NRBC Per 100 WBC 0 X 10*3/uL (0.00-0.01); Neutrophils # (A) 5.34 X 10*3/uL (1.80-7.70); Neutrophils % (A) 78.3 %; Platelet Count 101 X 10*3/uL (140-440); RBC 3.25 X 10*6/uL (4.40-5.60); RDW 13.9 % (11.5-14.5); WBC 6.82 X 10*3/uL (4.50-10.00)
[2025-01-22] MEDS ORDERED: lisinopriL 20 MG TAB PO SCH (09:00)
[2025-01-22] MEDS: FOLIC ACID-VIT B COMPLEX-VIT C 1 CAP PO SCH (09:50)
[2025-01-22 10:31] LABS: BUN/Creat Ratio 5.68 Ratio (12.00-20.00); Blood Urea Nitrogen 34.1 mg/dL (9.0-27.0); Calcium 8.7 mg/dL (8.7-10.3); Carbon Dioxide 31.7 mmol/L (21.6-31.8); Chloride 98 mmol/L (96-109); Glucose 138 mg/dL (70-110); Potassium 4.4 mmol/L (3.5-5.5); Sodium 134 mmol/L (135-145)
[2025-01-22] MEDS: TENAPANOR HCL PO SCH ×2 (10:53→20:28)
--- NOTE | 2025-01-22 10:55 | P.HPIM ---
Review of Systems Review of systems CONSTITUTIONAL: no malaise, no fatigue. HEENT: No recent visual problems or hearing problems. Denied any sore throat. CARDIOVASCULAR: No orthopnea, PND, no palpitations, no syncope. PULMONARY: No shortness of breath, no cough, no hemoptysis. GASTROINTESTINAL: No diarrhea, no nausea, no vomiting, no abdominal pain. No rmoactive bowel sounds. NEUROLOGICAL: No headaches, no weakness, no numbness. HEMATOLOGICAL: Denies any bleeding or petechiae. GENITOURINARY: Denies any burning micturition, frequency, or urgency. MUSCULOSKELETAL/RHEUMATOLOGICAL: Denies any joint pain, swelling, or any muscle pain. ENDOCRINE: Denies any polyuria or polydipsia. Past Medical History Past Medical History: Diabetes Mellitus, GERD/Reflux, Hypertension, Renal Disease Additional Past Medical History / Comment(s): . History of Any Multi-Drug Resistant Organisms: None Reported, MRSA Date of last positivie culture/infection: 02/22/2016 MDRO Source:: left foot Past Surgical History: Bariatric Surgery, Orthopedic Surgery Additional Past Surgical History / Comment(s): , amputation of smallest toe on lt foot, amputation of the 4th toe on the right foot Past Anesthesia/Blood Transfusion Reactions: No Reported Reaction Past Psychological History: Depression Smoking Status: Never smoker Past Alcohol Use History: Occasional Past Drug Use History: None Reported - Past Family History Brother(s) Family Medical History: Cancer Father Family Medical History: Cancer Mother Family Medical History: Coronary Artery Disease (CAD), Deep Vein Thrombosis (DVT) Medications and Allergies Home Medications Medication Instructions Recorded Confirmed Type Atorvastatin [Lipitor] 20 mg PO HS 05/09/16 01/21/25 History Sertraline HCl [Zoloft] 100 mg PO BID 08/13/17 01/21/25 History amLODIPine BESYLATE [Norvasc] 10 mg PO DAILY 08/13/17 01/21/25 History Ergocalciferol (Vitamin D2) 1,250 mcg PO MOWEFR 08/18/24 01/21/25 History [Drisdol (50,000 Iu)] ALPRAZolam [Xanax] 0.25 mg PO DIRECTED 01/21/25 01/21/25 History Calcium Acetate 667mg Capsule 1,334 mg PO TID-W/MEALS 01/21/25 01/21/25 History Renaplex-D 1 tab PO DAILY 01/21/25 01/21/25 History Tenapanor HCl [Xphozah] 30 mg PO AC-BRKFST 01/21/25 01/21/25 History lisinopriL 40 mg PO DAILY 01/21/25 01/21/25 History Allergies Allergy/AdvReac Type Severity Reaction Status Date / Time No Known Allergies Allergy Verified 01/21/25 19:03 Physical Exam Vitals: Vital Signs Temp Pulse Pulse Resp BP BP Pulse Ox 01/22/25 06:09 69 17 102/66 95 01/22/25 03:52 98.3 F 70 17 99/60 98 01/22/25 03:22 98.6 F 69 18 104/63 01/22/25 03:00 98.6 F 69 18 104/63 01/21/25 19:51 98.7 F 72 19 96/51 100 01/21/25 18:38 99.3 F 01/21/25 14:53 103.0 F H 91 18 161/77 97 Intake and Output 01/21/25 01/22/25 01/22/25 22:59 06:59 14:59 Intake Total 500 Output Total 4500 Balance -4000 Intake: Hemodialysis 500 Output: Hemodialysis 2500 Hemodialysis Net Amount 2000 GENERAL: The patient is alert and oriented x3, not in any acute distress. Well developed, well nourished. HEENT: Pupils are round and equally reacting to light. EOMI. No scleral icterus. No conjunctival pallor. Normocephalic, atraumatic. No pharyngeal erythema. No thyromegaly. CARDIOVASCULAR: S1 and S2 present. No murmurs, rubs, or gallops. -PULMONARY: Chest is clear to auscultation, no wheezing , no crackles. Right upper chest intunnel permacath ABDOMEN: Soft, nontender, nondistended, normoactive bowel sounds. No palpable organomegaly. MUSCULOSKELETAL: No joint swelling or deformity. -EXTREMITIES: No cyanosis, clubbing, or pedal edema. Right foot is with erythematous changes, mild but more on the forefoot, right toe is swollen and there is some purulent discharge from the lateral side. No significant ulcer or open wound. Warmth and swelling extends up to the distal leg on the right side NEUROLOGICAL: Gross neurological examination did not reveal any focal deficits. SKIN: No rashes. no petechiae. Results CBC & Chem 7: 01/22/25 06:27 01/22/25 06:27 Labs: Abnormal Lab Results - Last 24 Hours (Table) 01/21/25 01/21/25 01/21/25 Range/Units 15:55 15:55 20:26 RBC 3.36 L (4.40-5.60) 10*6/uL Hgb 10.7 L (13.0-17.0) g/dL Hct 31.7 L (39.6-50.0) % Plt Count 118 L (140-440) 10*3/uL Immature Gran # 0.05 H (0.00-0.04) 10*3/uL Lymphocytes # 0.87 L (0.90-5.00) 10*3/uL Sodium 135 L (137-145) mmol/L Potassium 6.3 H* (3.5-5.1) mmol/L Carbon Dioxide 20 L (22-30) mmol/L BUN 65 H (9-20) mg/dL Creatinine 8.56 H* (0.66-1.25) mg/dL Est GFR (CKD-EPI) (>=60) BUN/Creatinine Ratio (12.00-20.00) Ratio Glucose 105 H (74-99) mg/dL POC Glucose (mg/dL) 166 H (70-110) mg/dL Magnesium 2.6 H (1.6-2.3) mg/dL 01/22/25 01/22/25 Range/Units 06:27 06:27 RBC 3.25 L (4.40-5.60) 10*6/uL Hgb 10.3 L (13.0-17.0) g/dL Hct 31.1 L (39.6-50.0) % Plt Count 101 L (140-440) 10*3/uL Immature Gran # (0.00-0.04) 10*3/uL Lymphocytes # 0.53 L (0.90-5.00) 10*3/uL Sodium 134 L (137-145) mmol/L Potassium (3.5-5.1) mmol/L Carbon Dioxide (22-30) mmol/L BUN 34.1 H (9-20) mg/dL Creatinine 6.0 H (0.66-1.25) mg/dL Est GFR (CKD-EPI) 11 L (>=60) BUN/Creatinine Ratio 5.68 L (12.00-20.00) Ratio Glucose 138 H (74-99) mg/dL POC Glucose (mg/dL) (70-110) mg/dL Magnesium (1.6-2.3) mg/dL Assessment and Plan Assessment: Right foot infection with surrounding right lower extremity cellulitis Sepsis secondary to above End-stage renal disease on hemodialysis Hypertension History of GERD Diabetes mellitus Depression, not an active issue Obesity with BMI of 37.5 Plan: Patient started antibiotics and vancomycin pharmacy to dose Patient got cefepime one-time dose in the emergency room Infectious disease consult Nephrology team consult to continue with dialysis Check right lower extremity x-ray Check venous Doppler of the right lower extremity Follow-up culture results Labs and medication were reviewed.. Continue same treatment. Continue with symptomatic treatment. Resume home medication. Monitor labs and vitals. DVT and GI prophylaxis. Further recommendations as per clinical course of the patient DVT prophylaxis: Subcutaneous heparin GI Prophylaxis: Pepcid PT/OT: Pending Prognosis is guarded
--- NOTE | 2025-01-22 11:25 | XR ---
EXAMINATION TYPE: XR foot complete RT DATE OF EXAM: 01/22/2025 CLINICAL INDICATION: Male, 49 years old with history of toe cellulitis and discharge, pain TECHNIQUE: Frontal, lateral, and oblique images of the right foot are obtained. COMPARISON: None FINDINGS: There is lucency at level of the first interphalangeal joint consistent with soft tissue ul cer. There is bony fragmentation of the distal half of the first proximal phalanx. Some erosive yu es at the first interphalangeal joint are present. There is moderate to severe soft tissue swelling. There is amputation defect of the distal fourth toe. There is prominent bony projection at the base o f the fifth metatarsal. There is [id number] diffuse subcutaneous edema and soft tissue arterial vascular calcification. IMPRESSION: As above. Acute osteomyelitis involving the first toe must be strongly considered. [facility], , 01/22/2025 11:22 AM
--- NOTE | 2025-01-22 11:30 | P.NPCON ---
History of Present Illness - Reason for Consult end stage renal disease - History of Present Illness Reason for consultation: End-stage renal disease History of present illness: Patient is a 49-year-old male seen in renal consultation for end-stage renal disease. Patient was seen and examined in the emergency room. Patient came to the hospital due to fever. Patient stated he had chills at home and when checked his temperature he was at 102 F. Patient does have a wound on his right foot which is draining pus. Patient denies any redness or drainage around his permacath site. He also has AV fistula which has been functioning well for the last 4 treatments. Patient's potassium was 6.3 on admission and he underwent emergent hemodialysis last night and potassium level is 4.4 this morning. Patient has history of diabetes. Denies history of coronary artery disease. He does make urine. No vomiting or diarrhea. No cough. No chest pain or shortness of breath. Vital signs are stable. General: No acute distress. HEENT: Head exam is unremarkable. LUNGS: No audible rhonchi or wheezes. HEART: Rate and Rhythm are regular. ABDOMEN: Nontender. EXTREMITITES: No edema. Right foot wound with draining abscess noted. Past Medical History Past Medical History: Diabetes Mellitus, GERD/Reflux, Hypertension, Renal Disease Additional Past Medical History / Comment(s): . History of Any Multi-Drug Resistant Organisms: None Reported, MRSA Date of last positivie culture/infection: 02/22/2016 MDRO Source:: left foot Past Surgical History: Bariatric Surgery, Orthopedic Surgery Additional Past Surgical History / Comment(s): , amputation of smallest toe on lt foot, amputation of the 4th toe on the right foot Past Anesthesia/Blood Transfusion Reactions: No Reported Reaction Past Psychological History: Depression Smoking Status: Never smoker Past Alcohol Use History: Occasional Past Drug Use History: None Reported - Past Family History Brother(s) Family Medical History: Cancer Father Family Medical History: Cancer Mother Family Medical History: Coronary Artery Disease (CAD), Deep Vein Thrombosis (DVT) Medications and Allergies Home Medications Medication Instructions Recorded Confirmed Type Atorvastatin [Lipitor] 20 mg PO HS 05/09/16 01/21/25 History Sertraline HCl [Zoloft] 100 mg PO BID 08/13/17 01/21/25 History amLODIPine BESYLATE [Norvasc] 10 mg PO DAILY 08/13/17 01/21/25 History Ergocalciferol (Vitamin D2) 1,250 mcg PO MOWEFR 08/18/24 01/21/25 History [Drisdol (50,000 Iu)] ALPRAZolam [Xanax] 0.25 mg PO DIRECTED 01/21/25 01/21/25 History Calcium Acetate 667mg Capsule 1,334 mg PO TID-W/MEALS 01/21/25 01/21/25 History Renaplex-D 1 tab PO DAILY 01/21/25 01/21/25 History Tenapanor HCl [Xphozah] 30 mg PO AC-BRKFST 01/21/25 01/21/25 History lisinopriL 40 mg PO DAILY 01/21/25 01/21/25 History Allergies Allergy/AdvReac Type Severity Reaction Status Date / Time No Known Allergies Allergy Verified 01/21/25 19:03 Physical Exam Vitals: Vital Signs Temp Pulse Pulse Resp BP BP Pulse Ox 01/22/25 06:09 69 17 102/66 95 01/22/25 03:52 98.3 F 70 17 99/60 98 01/22/25 03:22 98.6 F 69 18 104/63 01/22/25 03:00 98.6 F 69 18 104/63 01/21/25 19:51 98.7 F 72 19 96/51 100 01/21/25 18:38 99.3 F 01/21/25 14:53 103.0 F H 91 18 161/77 97 Intake and Output 01/21/25 01/22/25 01/22/25 22:59 06:59 14:59 Intake Total 500 Output Total 4500 Balance -4000 Intake: Hemodialysis 500 Output: Hemodialysis 2500 Hemodialysis Net Amount 2000 Results - Lab Results Most recent lab results Calcium 8.7 mg/dL (8.7-10.3) 01/22/25 06:27 Phosphorus 2.6 mg/dL (2.5-4.5) 01/21/25 15:55 Magnesium 2.6 mg/dL (1.6-2.3) H 01/21/25 15:55 01/22/25 06:27 01/22/25 06:27 Assessment and Plan Plan: Assessment: 1. End-stage renal disease maintained on hemodialysis on Sunday schedule. Patient has a permacath and also a maturing AV fistula. 2. Fever and chills with right foot wound as possible source for infection. 3. Hyperkalemia secondary to chronic kidney disease. Improved postdialysis. 4. Metabolic acidosis secondary to chronic kidney disease. Improved postdialysis. 5. Anemia of chronic kidney disease. 6. Hypertension with chronic kidney disease. Stable. 7. Chronic kidney disease mineral bone disease maintained on PhosLo. Plan: Hemodialysis tomorrow. Add Aranesp. Lisinopril stopped. Hold amlodipine for systolic blood pressure less than 120. Follow-up cultures. Also check cultures from permacath. Will use AV fistula tomorrow for dialysis. If no issues, will discontinue permacath. Thank you for the consultation. I will continue to follow the patient with you during his hospital stay.
--- NOTE | 2025-01-22 12:32 | US ---
EXAMINATION TYPE: US venous doppler duplex LE RT DATE OF EXAM: 01/22/2025 12:09 PM COMPARISON: 11/14/2017 CLINICAL INDICATION: Male, 49 years old with history of warm and swollen leg; Patient denies any sign s or symptoms, Hx HTN and DM TECHNIQUE: The lower extremity deep venous system is examined utilizing real time linear array sonog maria c with graded compression, color doppler sonography, and spectral doppler. SIDE PERFORMED: Right FINDINGS: VESSELS IMAGED: Common Femoral Vein Deep Femoral Vein Greater Saphenous Vein * Femoral Vein Popliteal Vein Small Saphenous Vein * Proximal Calf Veins (* superficial vessels) Enlarged lymph node = 4.0 x 1.5 x 4.8 cm Right Leg: Negative for DVT, Color Doppler imaging shows patency of the vessels. Spectral waveforms are within normal limits. IMPRESSION: 1. No evidence of acute deep vein thrombosis of the right lower extremity. Enlarged lymph node in the right groin is noted towards the end of study. This is likely reactive to infection/inflammation. [facility], , 01/22/2025 12:30 PM
[2025-01-22] MEDS: VANCOMYCIN 2,000 MG in SODIUM CHLORIDE 0.9% 500 ML 500 ML IVPB ONE (14:50)
[2025-01-22] MEDS: DARBEPOETIN ALFA 40 MCG/0.4 ML SYRINGE SQ SCH (14:57)
[2025-01-22] MEDS: HEPARIN SODIUM,PORCINE 5,000 UNIT/ML 1 ML VIAL SQ SCH (16:52)
[2025-01-22] MEDS: AMPICILLIN-SULBACTAM 3 GM in SODIUM CHLORIDE 0.9% 100 ML IVPB SCH (18:50)
[2025-01-22] MEDS: FAMOTIDINE 20 MG/2 ML VIAL IV SCH (20:14)
[2025-01-22] MEDS ORDERED: FAMOTIDINE 20 MG/2 ML VIAL IV SCH (21:00)
[2025-01-22 21:01] LABS: Glucose,Whole Blood 133 mg/dL (70-110)
--- NOTE | 2025-01-22 23:03 | P.CONS ---
History of Present Illness - Reason for Consult Consult date: 01/22/25 Fever possible right foot cellulitis Requesting physician: Caron Evans - Chief Complaint Fever x 1 day - History of Present Illness Patient is a 49-year-old male with a past medical history significant for diabetes mellitus hypertension reflux end-stage renal disease on dialysis in this patient who did have a right chest wall dialysis catheter as well as left arm fistula which is currently being used patient presenting to the hospital for evaluation of fever that apparently started the day of presentation to hospital with associated chills symptom started before he went for the dialysis and the patient subsequently came to the ER patient denies having any headache or URI symptoms patient denies having any chest pain no shortness with occasional cough no nausea vomiting no abdominal pain no diarrhea patient did have wound on the medial aspect of his right big toe with the patient apparently has developed from wearing his shoes which has been rubbing on this area he did have some drainage did have diabetic neuropathy denies significant pain to the right big toe which is mostly swollen and red and did have some drainage on presentation to the hospital he did have a temperature of 103 F patient was tachycardic with a heart rate of 91, patient was not hypotensive or hypoxic no need for supplemental oxygen white count is 9.6 with a left shift BUN and creatinine has been elevated pressure was 6.3 repeat is 4.4 liver enzymes are normal urine has been negative blood cultures obtained which are currently pending he did have chest x-ray did not show any acute cardiopulmonary disease process also have right foot x-ray which did show some lucency at the level of the first interphalangeal joint consistent with a soft tissue ulcer with a bony f ragmentation of the distal half of the first proximal phalanx some erosive changes at the first interphalangeal joint patient was started on vancomycin and Zosyn infectious disease was consulted for further management of antibiotic therapy Review of Systems Positive point and negatives has been mentioned in the HPI, complete review of systems was performed and all other systems are negative Past Medical History Past Medical History: Diabetes Mellitus, GERD/Reflux, Hypertension, Renal Disease Additional Past Medical History / Comment(s): . History of Any Multi-Drug Resistant Organisms: None Reported, MRSA Year Discovered:: 02/22/2016 MDRO Source:: left foot Past Surgical History: Bariatric Surgery, Orthopedic Surgery Additional Past Surgical History / Comment(s): , amputation of smallest toe on lt foot, amputation of the 4th toe on the right foot Past Anesthesia/Blood Transfusion Reactions: No Reported Reaction Past Psychological History: Depression Smoking Status: Never smoker Past Alcohol Use History: Occasional Past Drug Use History: None Reported - Past Family History Brother(s) Family Medical History: Cancer Father Family Medical History: Cancer Mother Family Medical History: Coronary Artery Disease (CAD), Deep Vein Thrombosis (DVT) Medications and Allergies Home Medications Medication Instructions Recorded Confirmed Type Atorvastatin [Lipitor] 20 mg PO HS 05/09/16 01/21/25 History Sertraline HCl [Zoloft] 100 mg PO BID 08/13/17 01/21/25 History amLODIPine BESYLATE [Norvasc] 10 mg PO DAILY 08/13/17 01/21/25 History Ergocalciferol (Vitamin D2) 1,250 mcg PO MOWEFR 08/18/24 01/21/25 History [Drisdol (50,000 Iu)] ALPRAZolam [Xanax] 0.25 mg PO DIRECTED 01/21/25 01/21/25 History Calcium Acetate 667mg Capsule 1,334 mg PO TID-W/MEALS 01/21/25 01/21/25 History Renaplex-D 1 tab PO DAILY 01/21/25 01/21/25 History Tenapanor HCl [Xphozah] 30 mg PO AC-BRKFST 01/21/25 01/21/25 History lisinopriL 40 mg PO DAILY 01/21/25 01/21/25 History Allergies Allergy/AdvReac Type Severity Reaction Status Date / Time No Known Allergies Allergy Verified 01/22/25 18:24 Physical Exam Vitals: Vital Signs Temp Pulse Pulse Resp BP BP Pulse Ox 01/22/25 06:09 69 17 102/66 95 01/22/25 03:52 98.3 F 70 17 99/60 98 01/22/25 03:22 98.6 F 69 18 104/63 01/22/25 03:00 98.6 F 69 18 104/63 01/21/25 19:51 98.7 F 72 19 96/51 100 01/21/25 18:38 99.3 F 01/21/25 14:53 103.0 F H 91 18 161/77 97 Intake and Output 04/07/0901/22/25 01/22/25 22:59 06:59 14:59 Intake Total 500 Output Total 4500 Balance -4000 Intake: Hemodialysis 500 Output: Hemodialysis 2500 Hemodialysis Net Amount 2000 GENERAL DESCRIPTION: Middle-age male lying in bed, no distress. No tachypnea or accessory muscle of respiration use. HEENT: Shows Pallor , no scleral icterus. Oral mucous membrane is dry. No pharyngeal erythema or thrush NECK: Trachea central, no thyromegaly. LUNGS: Unlabored breathing. Clear to auscultation anteriorly. No wheeze or crackle. HEART: S1, S2, regular rate and rhythm. No loud murmur ABDOMEN: Soft, no tenderness , guarding or rigidity, no organomegaly EXTREMITIES: Right big toe did have significant swelling with the callus on the medial aspect and some purulent drainage was cultured SKIN: No rash, no masses palpable. NEUROLOGICAL: The patient is awake, alert, oriented x3, mood and affect normal. Results CBC & Chem 7: 01/22/25 06:27 01/22/25 06:27 Labs: Abnormal Lab Results - Last 24 Hours (Table) 01/21/25 01/21/25 01/21/25 Range/Units 15:55 15:55 20:26 RBC 3.36 L (4.40-5.60) 10*6/uL Hgb 10.7 L (13.0-17.0) g/dL Hct 31.7 L (39.6-50.0) % Plt Count 118 L (140-440) 10*3/uL Immature Gran # 0.05 H (0.00-0.04) 10*3/uL Lymphocytes # 0.87 L (0.90-5.00) 10*3/uL Sodium 135 L (137-145) mmol/L Potassium 6.3 H* (3.5-5.1) mmol/L Carbon Dioxide 20 L (22-30) mmol/L BUN 65 H (9-20) mg/dL Creatinine 8.56 H* (0.66-1.25) mg/dL Est GFR (CKD-EPI) (>=60) BUN/Creatinine Ratio (12.00-20.00) Ratio Glucose 105 H (74-99) mg/dL POC Glucose (mg/dL) 166 H (70-110) mg/dL Magnesium 2.6 H (1.6-2.3) mg/dL 01/22/25 01/22/25 Range/Units 06:27 06:27 RBC 3.25 L (4.40-5.60) 10*6/uL Hgb 10.3 L (13.0-17.0) g/dL Hct 31.1 L (39.6-50.0) % Plt Count 101 L (140-440) 10*3/uL Immature Gran # (0.00-0.04) 10*3/uL Lymphocytes # 0.53 L (0.90-5.00) 10*3/uL Sodium 134 L (137-145) mmol/L Potassium (3.5-5.1) mmol/L Carbon Dioxide (22-30) mmol/L BUN 34.1 H (9-20) mg/dL Creatinine 6.0 H (0.66-1.25) mg/dL Est GFR (CKD-EPI) 11 L (>=60) BUN/Creatinine Ratio 5.68 L (12.00-20.00) Ratio Glucose 138 H (74-99) mg/dL POC Glucose (mg/dL) (70-110) mg/dL Magnesium (1.6-2.3) mg/dL Assessment and Plan (1) Sepsis Current Visit: Yes Status: Acute Code(s): A41.9 - SEPSIS, UNSPECIFIED ORGANISM SNOMED Code(s): 52438623 (2) Diabetic ulcer of right foot Current Visit: Yes Status: Acute Code(s): E11.621 - TYPE 2 DIABETES MELLITUS WITH FOOT ULCER; L97.519 - NON-PRS CHRONIC ULCER OTH PRT RIGHT FOOT W UNSP SEVERITY SNOMED Code(s): 524889033 (3) Osteomyelitis of great toe of right foot Current Visit: Yes Status: Acute Code(s): M86.9 - OSTEOMYELITIS, UNSPECIFIED SNOMED Code(s): 677957497 Plan: 1patient presented the hospital with sepsis in this patient who did have fever heart rate of 91 meeting criteria for SIRS source is likely right big toe diabetic foot infected callus and concern for underlying osteomyelitis as the patient did have significant abnormality seen on the clinical findings as well as the x-ray and will need to cover for the polymicrobial shyann associated with diabetic foot infection, the patient also have a right chest wall dialysis cath eter which could be the source however the symptoms started before he was dialyzed making dialysis port with a less likely source of this infection 2-local culture has been obtained that will guide further antibiotic therapy 3-vascular surgery evaluation for debridement and deep culture 4-we will check inflammatory markers 5-will treat the patient with vancomycin pharmacy to dose however switch Zosyn to Unasyn while waiting for the culture to finalize 6-will likely need IV antibiotics on discharge hopefully can be done through the dialysis so we can skip placing a PICC line this will be discussed with the nephrology We will follow on clinical condition and cultures to further adjust medication if needed Thank you for this consultation we will follow the patient along with you Dictation was produced using [employer] dictation software. please excuse any grammatical, word or spelling errors. Time with Patient: Greater than 30
[2025-01-23 06:21] LABS: Glucose,Whole Blood 137 mg/dL (70-110)
[2025-01-23 07:56] LABS: C Reactive Protein 12.8 mg/dL (<1.0)
--- NOTE | 2025-01-23 08:00 | P.GSCN ---
History of Present Illness History of present illness: 49-year-old gentleman known to me from the past patient came with history of discomfort involving the left foot big toe with callus formation with minimal drainage. Patient also has a history of chronic renal failure on dialysis Medical history diabetes hypertension chronic renal failure On examination patient was seen in his room neck is supple no bruit appreciated Chest. Second sound present good in both lungs. Abdomen soft nontender Femorals are 1+ bilateral big toe has a callus formation with minimal drainage plan is debridement and deep culture we will follow with you patient is on infectious disease for IV antibiotic Past Medical History Past Medical History: Diabetes Mellitus, GERD/Reflux, Hypertension, Renal Disease Additional Past Medical History / Comment(s): . History of Any Multi-Drug Resistant Organisms: None Reported, MRSA Year Discovered:: 02/22/2016 MDRO Source:: left foot Past Surgical History: Bariatric Surgery, Orthopedic Surgery Additional Past Surgical History / Comment(s): , amputation of smallest toe on lt foot, amputation of the 4th toe on the right foot Past Anesthesia/Blood Transfusion Reactions: No Reported Reaction Past Psychological History: Depression Smoking Status: Never smoker Past Alcohol Use History: Occasional Past Drug Use History: None Reported - Past Family History Brother(s) Family Medical History: Cancer Father Family Medical History: Cancer Mother Family Medical History: Coronary Artery Disease (CAD), Deep Vein Thrombosis (DVT) Medications and Allergies Home Medications Medication Instructions Recorded Confirmed Type Atorvastatin [Lipitor] 20 mg PO HS 05/09/16 01/21/25 History Sertraline HCl [Zoloft] 100 mg PO BID 08/13/17 01/21/25 History amLODIPine BESYLATE [Norvasc] 10 mg PO DAILY 08/13/17 01/21/25 History Ergocalciferol (Vitamin D2) 1,250 mcg PO MOWEFR 08/18/24 01/21/25 History [Drisdol (50,000 Iu)] ALPRAZolam [Xanax] 0.25 mg PO DIRECTED 01/21/25 01/21/25 History Calcium Acetate 667mg Capsule 1,334 mg PO TID-W/MEALS 01/21/25 01/21/25 History Renaplex-D 1 tab PO DAILY 01/21/25 01/21/25 History Tenapanor HCl [Xphozah] 30 mg PO AC-BRKFST 01/21/25 01/21/25 History lisinopriL 40 mg PO DAILY 01/21/25 01/21/25 History Allergies Allergy/AdvReac Type Severity Reaction Status Date / Time No Known Allergies Allergy Verified 01/22/25 18:24 Surgical - Exam Vital Signs Temp Pulse Resp BP Pulse Ox 103.0 F H 91 18 161/77 97 01/21/25 14:53 01/21/25 14:53 01/21/25 14:53 01/21/25 14:53 01/21/25 14:53 Results - Labs 01/22/25 06:27 01/22/25 06:27 Abnormal Lab Results - Last 24 Hours (Table) 01/22/25 01/22/25 01/22/25 Range/Units 06:27 06:27 20:59 RBC 3.25 L (4.40-5.60) X 10*6/uL Hgb 10.3 L (13.0-17.0) g/dL Hct 31.1 L (39.6-50.0) % Plt Count 101 L (140-440) X 10*3/uL Lymphocytes # 0.53 L (0.90-5.00) X 10*3/uL Sodium 134 L (135-145) mmol/L BUN 34.1 H (9.0-27.0) mg/dL Creatinine 6.0 H (0.6-1.5) mg/dL Est GFR (CKD-EPI) 11 L (>=60) BUN/Creatinine Ratio 5.68 L (12.00-20.00) Ratio Glucose 138 H (70-110) mg/dL POC Glucose (mg/dL) 133 H (70-110) mg/dL C-Reactive Protein (<1.0) mg/dL 01/23/25 01/23/25 Range/Units 06:05 06:19 RBC (4.40-5.60) X 10*6/uL Hgb (13.0-17.0) g/dL Hct (39.6-50.0) % Plt Count (140-440) X 10*3/uL Lymphocytes # (0.90-5.00) X 10*3/uL Sodium (135-145) mmol/L BUN (9.0-27.0) mg/dL Creatinine (0.6-1.5) mg/dL Est GFR (CKD-EPI) (>=60) BUN/Creatinine Ratio (12.00-20.00) Ratio Glucose (70-110) mg/dL POC Glucose (mg/dL) 137 H (70-110) mg/dL C-Reactive Protein 12.8 H (<1.0) mg/dL Microbiology - Last 24 Hours (Table) 01/21/25 15:55 Blood Culture - Preliminary Blood 01/22/25 14:36 Gram Stain - Preliminary Toe - Right First Diabetes panel 01/22/25 Range/Units 06:27 Sodium 134 L (135-145) mmol/L Potassium 4.4 (3.5-5.5) mmol/L Chloride 98 (96-109) mmol/L Carbon Dioxide 31.7 (21.6-31.8) mmol/L BUN 34.1 H (9.0-27.0) mg/dL Creatinine 6.0 H (0.6-1.5) mg/dL Glucose 138 H (70-110) mg/dL Calcium 8.7 (8.7-10.3) mg/dL Calcium panel 01/22/25 Range/Units 06:27 Calcium 8.7 (8.7-10.3) mg/dL Pituitary panel 01/22/25 Range/Units 06:27 Sodium 134 L (135-145) mmol/L Potassium 4.4 (3.5-5.5) mmol/L Chloride 98 (96-109) mmol/L Carbon Dioxide 31.7 (21.6-31.8) mmol/L BUN 34.1 H (9.0-27.0) mg/dL Creatinine 6.0 H (0.6-1.5) mg/dL Glucose 138 H (70-110) mg/dL Calcium 8.7 (8.7-10.3) mg/dL Adrenal panel 01/22/25 Range/Units 06:27 Sodium 134 L (135-145) mmol/L Potassium 4.4 (3.5-5.5) mmol/L Chloride 98 (96-109) mmol/L Carbon Dioxide 31.7 (21.6-31.8) mmol/L BUN 34.1 H (9.0-27.0) mg/dL Creatinine 6.0 H (0.6-1.5) mg/dL Glucose 138 H (70-110) mg/dL Calcium 8.7 (8.7-10.3) mg/dL
--- NOTE | 2025-01-23 08:30 | P.PCN ---
Description of Procedure: Preop diagnosis infected callus right foot big toe measurement is 1 cm x 1 cm. The same measurement is 1 x 1 x 0.3 cm procedure right foot was prepped and draped for pleasure manner patient has a callus on the right foot big toe 1% lidocaine 5 infiltrated using knife we excised the callus down to subcu tissue callus was sent for deep culture no active bleeding was noted wound was irrigated with saline Medihoney gel applied to the wound dressing applied patient tarted the procedure well plan is to change the dressing on daily basis using this Medihoney gel
[2025-01-23] MEDS: LIDOCAINE 1% INJ 10MG/ML (20 ML MDV) SQ ONE (08:34)
--- NOTE | 2025-01-23 10:25 | P.PN ---
Subjective Patient is seen in follow-up for end-stage renal disease. Tolerating dialysis well. Feels well today. No active complaints. Vital signs are stable. General: No acute distress. HEENT: Head exam is unremarkable. LUNGS: No audible rhonchi or wheezes. HEART: Rate and Rhythm are regular. ABDOMEN: Nontender. EXTREMITITES: No edema. Objective - Vital Signs Vital signs: Vital Signs Temp 97.6 F 01/23/25 07:08 Pulse 63 01/23/25 07:08 Resp 16 01/23/25 07:08 BP 114/68 01/23/25 07:08 Pulse Ox 99 01/23/25 07:08 FiO2 Intake & Output 01/22/25 01/23/25 01/23/25 18:59 06:59 18:59 Weight 136.078 kg Other: # Voids 1 - Labs CBC & Chem 7: 01/22/25 06:27 01/22/25 06:27 Labs: Abnormal Lab Results - Last 24 Hours (Table) 01/22/25 01/22/25 01/23/25 Range/Units 06:27 20:59 06:05 Sodium 134 L (135-145) mmol/L BUN 34.1 H (9.0-27.0) mg/dL Creatinine 6.0 H (0.6-1.5) mg/dL Est GFR (CKD-EPI) 11 L (>=60) BUN/Creatinine Ratio 5.68 L (12.00-20.00) Ratio Glucose 138 H (70-110) mg/dL POC Glucose (mg/dL) 133 H (70-110) mg/dL C-Reactive Protein 12.8 H (<1.0) mg/dL 01/23/25 Range/Units 06:19 Sodium (135-145) mmol/L BUN (9.0-27.0) mg/dL Creatinine (0.6-1.5) mg/dL Est GFR (CKD-EPI) (>=60) BUN/Creatinine Ratio (12.00-20.00) Ratio Glucose (70-110) mg/dL POC Glucose (mg/dL) 137 H (70-110) mg/dL C-Reactive Protein (<1.0) mg/dL Microbiology - Last 24 Hours (Table) 01/21/25 15:55 Blood Culture - Preliminary Blood 01/22/25 14:36 Gram Stain - Preliminary Toe - Right First Assessment and Plan Plan: Assessment: 1. End-stage renal disease maintained on hemodialysis on Sunday schedule. Patient has a permacath and also a maturing AV fistula. 2. Fever and chills with right foot wound as possible source for infection. 3. Hyperkalemia secondary to chronic kidney disease. Improved postdialysis. 4. Metabolic acidosis secondary to chronic kidney disease. Improved postdialysis. 5. Anemia of chronic kidney disease. On Aranesp. 6. Hypertension with chronic kidney disease. Stable. 7. Chronic kidney disease mineral bone disease maintained on PhosLo. Phosphorus level 2.6. Plan: Currently seen while undergoing hemodialysis. AV fistula functioning well. Follow-up cultures. Lisinopril stopped. Hold amlodipine for systolic blood pressure less than 120. Discontinue permacath. Will send tip for culture. Decrease dose of PhosLo. Repeat phosphorus level tomorrow.
[2025-01-23 11:39] LABS: Glucose,Whole Blood 97 mg/dL (70-110)
[2025-01-23] MEDS: CALCIUM ACETATE 667 MG TAB PO SCH (13:19)
[2025-01-23] MEDS: ERGOCALCIFEROL 1,250 MCG (50,000 IU) CAPSULE PO SCH (13:20)
--- NOTE | 2025-01-23 15:55 | P.PN ---
Subjective Progress Note Date: 01/23/25 Principal diagnosis: Reason for follow-up with fever concerning for right big toe osteo- Patient is a 49-year-old male with a past medical history significant for diabetes mellitus hypertension reflux end-stage renal disease on dialysis in this patient who did have a right chest wall dialysis catheter as well as left arm fistula presented to hospital with a fever concerning for right big toe diabetic foot infected callus and underlying osteomyelitis. On today's evaluation that is 01/23/2025, the patient did have resolution of his fever he is currently breathing comfortable room air no chest pain shortness with or cough no nausea vomiting no abdominal pain or diarrhea. Culture currently growing Staph aureus blood cultures are pending Objective - Vital Signs Vital signs: Vital Signs Temp 98.1 F 01/23/25 12:26 Pulse 62 01/23/25 12:26 Resp 18 01/23/25 12:26 BP 122/70 01/23/25 12:26 Pulse Ox 99 01/23/25 07:08 FiO2 Intake & Output 01/22/25 01/23/25 01/23/25 18:59 06:59 18:59 Intake Total 400 Output Total 4400 Balance -4000 Weight 136.078 kg Intake: Hemodialysis 400 Output: Hemodialysis 2400 Hemodialysis Net Amount 2000 Other: # Voids 1 - Exam GENERAL DESCRIPTION: Middle-age male lying in bed in no distress RESPIRATORY SYSTEM: Unlabored breathing , decreased breath sounds at bases HEART: S1 S2 regular rate and rhythm , ABDOMEN: Soft , no tenderness EXTREMITIES: Right foot is currently dressed - Labs CBC & Chem 7: 01/22/25 06:27 01/22/25 06:27 Labs: Abnormal Lab Results - Last 24 Hours (Table) 01/22/25 01/23/25 01/23/25 Range/Units 20:59 06:05 06:05 ESR 31 H (0-20) mm/Hr POC Glucose (mg/dL) 133 H (70-110) mg/dL C-Reactive Protein 12.8 H (<1.0) mg/dL 01/23/25 Range/Units 06:19 ESR (0-20) mm/Hr POC Glucose (mg/dL) 137 H (70-110) mg/dL C-Reactive Protein (<1.0) mg/dL Microbiology - Last 24 Hours (Table) 01/22/25 14:36 Gram Stain - Preliminary Toe - Right First Wound Culture - Preliminary Presumptive Staph aureus 01/21/25 15:55 Blood Culture - Preliminary Blood Assessment and Plan (1) Sepsis Current Visit: Yes Status: Acute Code(s): A41.9 - SEPSIS, UNSPECIFIED ORG ANISM SNOMED Code(s): 17846009 (2) Diabetic ulcer of right foot Current Visit: Yes Status: Acute Code(s): E11.621 - TYPE 2 DIABETES MELLITUS WITH FOOT ULCER; L97.519 - NON-PRS CHRONIC ULCER OTH PRT RIGHT FOOT W UNSP SEVERITY SNOMED Code(s): 780684697 (3) Osteomyelitis of great toe of right foot Current Visit: Yes Status: Acute Code(s): M86.9 - OSTEOMYELITIS, UNSPECIFIED SNOMED Code(s): 462017343 Plan: 1patient presented the hospital with sepsis in this patient who did have fever heart rate of 91 meeting criteria for SIRS source is likely right big toe diabetic foot infected callus and concern for underlying osteomyelitis as the patient did have significant abnormality seen on the clinical findings as well as the x-ray and will need to cover for the polymicrobial shyann associated with diabetic foot infection, the patient also have a right chest wall dialysis catheter which could be the source however the symptoms started before he was dialyzed making dialysis port with a less likely source of this infection 2-local culture has been obtained which is currently growing Staph aureus 3-patient has been evaluated by vascular surgery and status post debridement and deep culture 4-patient currently being treated with vancomycin pharmacy to dose and Unasyn while waiting for the culture to finalize Question concern answered Dictation was produced using [employer] dictation software. please excuse any grammatical, word or spelling errors. Time with Patient: Less than 30
[2025-01-23 16:57] LABS: Glucose,Whole Blood 171 mg/dL (70-110)
[2025-01-23 20:17] LABS: Glucose,Whole Blood 127 mg/dL (70-110)
--- NOTE | 2025-01-23 21:19 | P.PN ---
Subjective Progress Note Date: 01/23/25 Patient is evaluated today ambulating in the room. Had surgical debridement of right great toe today and deep tissues cultures pending. Continues on IV unasyn. ID recommending permacath to be discontinued and tip sent for culture. Preliminary wound cultures showing presumptive staph aureus. Review of systems CONSTITUTIONAL: no malaise, no fatigue. HEENT: No recent visual problems or hearing problems. Denied any sore throat. CARDIOVASCULAR: No orthopnea, PND, no palpitations, no syncope. PULMONARY: No shortness of breath, no cough, no hemoptysis. GASTROINTESTINAL: No diarrhea, no nausea, no vomiting, no abdominal pain. Normoactive bowel sounds. NEUROLOGICAL: No headaches, no weakness, no numbness. Physical examination GENERAL: The patient is alert and oriented x3, not in any acute distress. Well developed, well nourished. HEENT: Pupils are round and equally reacting to light. EOMI. No scleral icterus. No conjunctival pallor. Normocephalic, atraumatic. No pharyngeal erythema. No thyromegaly. CARDIOVASCULAR: S1 and S2 present. No murmurs, rubs, or gallops. -PULMONARY: Chest is clear to auscultation, no wheezing , no crackles. Right upper chest intunnel permacath ABDOMEN: Soft, nontender, nondistended, normoactive bowel sounds. No palpable organomegaly. MUSCULOSKELETAL: No joint swelling or deformity. -EXTREMITIES: No cyanosis, clubbing, or pedal edema. Right foot is with erythematous changes, mild but more on the forefoot, right toe is swollen and there is some purulent discharge from the lateral side. No significant ulcer or open wound. Warmth and swelling extends up to the distal leg on the right side NEUROLOGICAL: Gross neurological examination did not reveal any focal deficits. SKIN: No rashes. no petechiae. Assessment Right foot infection with surrounding right lower extremity cellulitis Right great toe infected diabetic ulcer s/p debridement Sepsis secondary to above End-stage renal disease on hemodialysis Hypertension History of GERD Diabetes mellitus Depression, not an active issue Obesity with BMI of 37.5 GI prophylaxis Full Code Plan Infectious disease consult Nephrology team consult to continue with dialysis Continue IV unasyn Continue local wound care with medihoney to the right great toe Vascular surgery consult pending removal of permacath The impression and plan of care has been dictated by Estefani Jay, Nurse Practitioner as directed. Dr. Anay MD I have performed a history and physical examination and medical decision making of this patient, discussed the same with the dictator, and agree with the dictators assessment and plan as written, documented as a scribe. Based on total visit time, I have performed more than 50% of this visit. Objective - Vital Signs Vital signs: Vital Signs Temp 97.9 F 01/23/25 20:00 Pulse 69 01/23/25 20:47 Resp 18 01/23/25 20:47 BP 119/76 01/23/25 20:00 Pulse Ox 98 01/23/25 20:00 FiO2 Intake & Output 01/23/25 01/23/25 01/24/25 06:59 18:59 06:59 Intake Total 400 Output Total 4400 Balance -4000 Intake: Hemodialysis 400 Output: Hemodialysis 2400 Hemodialysis Net Amount 2000 Other: Voiding Method Toilet # Voids 1 2 - Labs CBC & Chem 7: 01/22/25 06:27 01/22/25 06:27 Labs: Abnormal Lab Results - Last 24 Hours (Table) 01/23/25 01/23/25 01/23/25 Range/Units 06:05 06:05 06:19 ESR 31 H (0-20) mm/Hr POC Glucose (mg/dL) 137 H (70-110) mg/dL C-Reactive Protein 12.8 H (<1.0) mg/dL 01/23/25 01/23/25 Range/Units 16:55 20:15 ESR (0-20) mm/Hr POC Glucose (mg/dL) 171 H 127 H (70-110) mg/dL C-Reactive Protein (<1.0) mg/dL Microbiology - Last 24 Hours (Table) 01/22/25 12:00 Blood Culture - Preliminary Blood 01/22/25 14:36 Gram Stain - Preliminary Toe - Right First Wound Culture - Preliminary Presumptive Staph aureus 01/21/25 15:55 Blood Culture - Preliminary Blood Assessment and Plan Time with Patient: Less than 30
[2025-01-23] MEDS: FAMOTIDINE 20 MG TAB PO SCH (22:27)
[2025-01-24 05:19] LABS: African American GFR (CKD) 11 (>60 ml/min/1.73 sqM); Non-African American GFR(CKD) 9 (>60 ml/min/1.73 sqM)
[2025-01-24 05:24] LABS: Vancomycin,Random 20.4 ug/mL
[2025-01-24 06:10] LABS: Glucose,Whole Blood 108 mg/dL (70-110)
--- NOTE | 2025-01-24 08:23 | P.PN ---
Progress Note - Text Preop diagnosis acute chronic renal failure patient has a right IJ catheter also left arm fistula consulted for removal of the dialysis catheter chest was prepped and draped in Prestel manner 1% lidocaine were infiltrated small incision was made exit site of the catheter comfortably around the catheter catheter was removed pressure dressing reapplied patient tarted the procedure well
--- NOTE | 2025-01-24 08:25 | P.PN ---
Progress Note - Text 49-year-old gentleman history of chronic renal failure on dialysis. Patient developed some swelling and redness of the right foot big toe with callus formation yesterday we excised the callus site for deep culture and IV antibiotic under care of infectious disease we will change her dressing use Medihoney gel has a mild swelling and some mild redness no fever chills dressing should be changed on daily basis using Medihoney gel
[2025-01-24] MEDS: LIDOCAINE 1% INJ 10MG/ML (20 ML MDV) SQ ONE (08:53)
[2025-01-24 11:09] LABS: Glucose,Whole Blood 151 mg/dL (70-110)
--- NOTE | 2025-01-24 12:36 | P.PN ---
Subjective Patient is seen for follow-up for end-stage renal disease Right IJ permacath was discontinued No significant complaints today Objective - Vital Signs Vital signs: Vital Signs Temp 97.8 F 01/24/25 07:16 Pulse 60 01/24/25 07:16 Resp 18 01/24/25 07:16 BP 122/73 01/24/25 07:16 Pulse Ox 97 01/24/25 07:16 FiO2 Intake & Output 01/23/25 01/24/25 01/24/25 18:59 06:59 18:59 Intake Total 400 Output Total 4400 Balance -4000 Intake: Hemodialysis 400 Output: Hemodialysis 2400 Hemodialysis Net Amount 2000 Other: Voiding Method Toilet # Voids 2 - Exam Patient is awake, comfortable, alert oriented x 3. 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 - Labs CBC & Chem 7: 01/22/25 06:27 01/24/25 04:39 Labs: Abnormal Lab Results - Last 24 Hours (Table) 01/23/25 01/23/25 01/24/25 Range/Units 16:55 20:15 04:39 Creatinine 6.44 H (0.66-1.25) mg/dL POC Glucose (mg/dL) 171 H 127 H (70-110) mg/dL 01/24/25 Range/Units 11:08 Creatinine (0.66-1.25) mg/dL POC Glucose (mg/dL) 151 H (70-110) mg/dL Microbiology - Last 24 Hours (Table) 01/22/25 14:36 Gram Stain - Preliminary Toe - Right First Wound Culture - Preliminary Presumptive Staph aureus 01/23/25 08:12 Gram Stain - Preliminary Toe - Right First Tissue Culture - Preliminary Presumptive Staph aureus 01/21/25 15:55 Blood Culture - Preliminary Blood 01/22/25 12:00 Blood Culture - Preliminary Blood Assessment and Plan Assessment: 1. End-stage renal disease maintained on hemodialysis on Sunday schedule. Permacath was removed as patient has a functioning AV fistula. 2. Fever and chills with right foot wound as possible source for infection. 3. Hyperkalemia secondary to chronic kidney disease. Improved postdialysis. 4. Metabolic acidosis secondary to chronic kidney disease. Improved po stdialysis. 5. Anemia of chronic kidney disease. On Aranesp. 6. Hypertension with chronic kidney disease. Stable. 7. Chronic kidney disease mineral bone disease maintained on PhosLo. Phosphorus level 2.6. Plan: Hemodialysis on Sunday schedule Continue antibiotics as per ID
[2025-01-24 16:29] LABS: Glucose,Whole Blood 98 mg/dL (70-110)
[2025-01-24 20:08] LABS: Glucose,Whole Blood 205 mg/dL (70-110)
--- NOTE | 2025-01-25 05:38 | P.PN ---
Subjective Progress Note Date: 01/24/25 Patient is evaluated today ambulating in the room. Had surgical debridement of right great toe today and deep tissues cultures pending. Continues on IV unasyn. ID recommending permacath to be discontinued and tip sent for culture. Preliminary wound cultures showing presumptive staph aureus. 01/24/2025 Patient evaluated today in follow up. No acute complaints. Deep tissue cultures pending. Plan is for IV antibiotics on discharge with hemodialysis. Nephrology following and next HD session for sunday while inpatient. Permacath has been removed and tip sent for culture. Review of systems CONSTITUTIONAL: no malaise, no fatigue. HEENT: No recent visual problems or hearing problems. Denied any sore throat. CARDIOVASCULAR: No orthopnea, PND, no palpitations, no syncope. PULMONARY: No shortness of breath, no cough, no hemoptysis. GASTROINTESTINAL: No diarrhea, no nausea, no vomiting, no abdominal pain. Normoactive bowel sounds. NEUROLOGICAL: No headaches, no weakness, no numbness. Physical examination GENERAL: The patient is alert and oriented x3, not in any acute distress. Well developed, well nourished. HEENT: Pupils are round and equally reacting to light. EOMI. No scleral icterus. No conjunctival pallor. Normocephalic, atraumatic. No pharyngeal erythema. No thyromegaly. CARDIOVASCULAR: S1 and S2 present. No murmurs, rubs, or gallops. -PULMONARY: Chest is clear to auscultation, no wheezing , no crackles. Right upper chest intunnel permacath ABDOMEN: Soft, nontender, nondistended, normoactive bowel sounds. No palpable organomegaly. MUSCULOSKELETAL: No joint swelling or deformity. -EXTREMITIES: No cyanosis, clubbing, or pedal edema. Right foot is with erythematous changes, mild but more on the forefoot, right toe is swollen and there is some purulent discharge from the lateral side. No significant ulcer or open wound. Warmth and swelling extends up to the distal leg on the right side NEUROLOGICAL: Gross neurological examination did not reveal any focal deficits. SKIN: No rashes. no petechiae. Assessment Right foot infection with surrounding right lower extremity cellulitis Right great toe infected diabetic ulcer s/p debridement Sepsis secondary to above End-stage renal disease on hemodialysis Hypertension History of GERD Diabetes mellitus Depression, not an active issue Obesity with BMI of 37.5 GI prophylaxis Full Code Plan Infectious disease consult Nephrology team consult to continue with dialysis, MWF schedule Continue IV unasyn Continue local wound care with medihoney to the right great toe Pending final wound cultures and permacath tip culture for discharge antibiotics. The impression and plan of care has been dictated by Estefani Jay Nurse Practitioner as directed. Dr. Anay MD I have performed a history and physical examination and medical decision making of this patient, discussed the same with the dictator, and agree with the dictators assessment and plan as written, documented as a scribe. Based on total visit time, I have performed more than 50% of this visit. Objective - Vital Signs Vital signs: Vital Signs Temp 97.8 F 01/24/25 07:16 Pulse 60 01/24/25 07:16 Resp 18 01/24/25 07:16 BP 122/73 01/24/25 07:16 Pulse Ox 97 01/24/25 07:16 FiO2 Intake & Output 01/23/25 01/24/25 01/24/25 18:59 06:59 18:59 Intake Total 400 Output Total 4400 Balance -4000 Intake: Hemodialysis 400 Output: Hemodialysis 2400 Hemodialysis Net Amount 2000 Other: Voiding Method Toilet # Voids 2 - Labs CBC & Chem 7: 01/22/25 06:27 01/24/25 04:39 Labs: Abnormal Lab Results - Last 24 Hours (Table) 01/23/25 01/23/25 01/23/25 Range/Units 06:05 16:55 20:15 ESR 31 H (0-20) mm/Hr Creatinine (0.66-1.25) mg/dL POC Glucose (mg/dL) 171 H 127 H (70-110) mg/dL 01/24/25 Range/Units 04:39 ESR (0-20) mm/Hr Creatinine 6.44 H (0.66-1.25) mg/dL POC Glucose (mg/dL) (70-110) mg/dL Microbiology - Last 24 Hours (Table) 01/23/25 08:12 Gram Stain - Preliminary Toe - Right First Tissue Culture - Preliminary Presumptive Staph aureus 01/21/25 15:55 Blood Culture - Preliminary Blood 01/22/25 12:00 Blood Culture - Preliminary Blood 01/22/25 14:36 Gram Stain - Preliminary Toe - Right First Wound Culture - Preliminary Presumptive Staph aureus Assessment and Plan Time with Patient: Less than 30
[2025-01-25 06:16] LABS: Glucose,Whole Blood 86 mg/dL (70-110)
[2025-01-25 11:12] LABS: Glucose,Whole Blood 139 mg/dL (70-110)
--- NOTE | 2025-01-25 11:59 | P.PN ---
Subjective Patient is seen for follow-up for end-stage renal disease Right IJ permacath was discontinued No significant complaints today. Scheduled for hemodialysis in a.m. Objective - Vital Signs Vital signs: Vital Signs Temp 97.6 F 01/25/25 07:27 Pulse 65 01/25/25 07:27 Resp 18 01/25/25 07:27 BP 116/71 01/25/25 07:27 Pulse Ox 95 01/25/25 00:10 FiO2 Intake & Output 01/24/25 01/25/25 01/25/25 18:59 06:59 18:59 Intake Total 360 Balance 360 Intake: Oral 360 Other: Voiding Method Toilet # Voids 5 2 - Exam Patient is awake, comfortable, alert oriented x 3. 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 grossly intact - Labs CBC & Chem 7: 01/22/25 06:27 01/24/25 04:39 Labs: Abnormal Lab Results - Last 24 Hours (Table) 01/24/25 01/25/25 Range/Units 20:06 11:11 POC Glucose (mg/dL) 205 H 139 H (70-110) mg/dL Microbiology - Last 24 Hours (Table) 01/23/25 08:12 Gram Stain - Preliminary Toe - Right First Tissue Culture - Final Staphylococcus aureus 01/21/25 15:55 Blood Culture - Preliminary Blood 01/22/25 12:00 Blood Culture - Preliminary Blood 01/22/25 14:36 Anaerobic Culture - Preliminary Toe - Right First 01/22/25 14:36 Gram Stain - Preliminary Toe - Right First Wound Culture - Preliminary Presumptive Staph aureus Assessment and Plan Assessment: 1. End-stage renal disease maintained on hemodialysis on Sunday schedule. Permacath was removed as patient has a functioning AV fistula. 2. Fever and chills with right foot wound as possible source for infection. 3. Hyperkalemia secondary to chronic kidney disease. Improved postdialysis. 4. Metabolic acidosis secondary to chronic kidney disease. Improved postdialysis. 5. Anemia of chronic kidney disease. On Aranesp. 6. Hypertension with chronic kidney disease. Stable. 7. Chronic kidney disease mineral bone disease maintained on PhosLo. Phosphorus level 2.6. Plan: Hemodialysis on Sunday schedule Continue antibiotics as per ID
--- NOTE | 2025-01-25 12:50 | P.PN ---
Subjective Progress Note Date: 01/25/25 Patient is evaluated today ambulating in the room. Had surgical debridement of right great toe today and deep tissues cultures pending. Continues on IV unasyn. ID recommending permacath to be discontinued and tip sent for culture. Preliminary wound cultures showing presumptive staph aureus. 01/24/2025 Patient evaluated today in follow up. No acute complaints. Deep tissue cultures pending. Plan is for IV antibiotics on discharge with hemodialysis. Nephrology following and next HD session for sunday while inpatient. Permacath has been removed and tip sent for culture. 01/25/2025 Patient debilitated in follow-up in the medical floor. He is having no acute complaints at this time. Patient is currently pending deep tissue cultures preliminary showing Staphylococcus aureus. He continues on IV Unasyn. Patient will continue with IV antibiotics on discharge with hemodialysis. He is maintained on a Sunday schedule. He will be dialyzed tomorrow while inpatient. Review of systems CONSTITUTIONAL: no malaise, no fatigue. HEENT: No recent visual problems or hearing problems. Denied any sore throat. CARDIOVASCULAR: No orthopnea, PND, no palpitations, no syncope. PULMONARY: No shortness of breath, no cough, no hemoptysis. GASTROINTESTINAL: No diarrhea, no nausea, no vomiting, no abdominal pain. Normoactive bowel sounds. NEUROLOGICAL: No headaches, no weakness, no numbness. Physical examination GENERAL: The patient is alert and oriented x3, not in any acute distress. Well developed, well nourished. HEENT: Pupils are round and equally reacting to light. EOMI. No scleral icterus. No conjunctival pallor. Normocephalic, atraumatic. No pharyngeal erythema. No thyromegaly. CARDIOVASCULAR: S1 and S2 present. No murmurs, rubs, or gallops. -PULMONARY: Chest is clear to auscultation, no wheezing , no crackles. Right upper chest intunnel permacath ABDOMEN: Soft, nontender, nondistended, normoactive bowel sounds. No palpable organomegaly. MUSCULOSKELETAL: No joint swelling or deformity. -EXTREMITIES: No cyanosis, clubbing, or pedal edema. Right foot is with erythematous changes, mild but more on the forefoot, right toe is swollen and there is some purulent discharge from the lateral side. No significant ulcer or open wound. Warmth and swelling extends up to the distal leg on the right side NEUROLOGICAL: Gross neurological examination did not reveal any focal deficits. SKIN: No rashes. no petechiae. Assessment Right foot infection with surrounding right lower extremity cellulitis Right great toe infected diabetic ulcer s/p debridement Sepsis secondary to above End-stage renal disease on hemodialysis Hypertension History of GERD Diabetes mellitus Depression, not an active issue Obesity with BMI of 37.5 GI prophylaxis Full Code Plan Infectious disease consult Nephrology team consult to continue with dialysis, MWF schedule Continue IV unasyn Continue local wound care with medihoney to the right great toe Pending final wound cultures and permacath tip culture for discharge antibiotics. The impression and plan of care has been dictated by Estefani Jay, Nurse Practitioner as directed. Dr. Anay MD I have performed a history and physical examination and medical decision making of this patient, discussed the same with the dictator, and agree with the dictators assessment and plan as written, documented as a scribe. Based on total visit time, I have performed more than 50% of this visit. Objective - Vital Signs Vital signs: Vital Signs Temp 97.6 F 01/25/25 07:27 Pulse 65 01/25/25 07:27 Resp 18 01/25/25 07:27 BP 116/71 01/25/25 07:27 Pulse Ox 95 01/25/25 00:10 FiO2 Intake & Output 01/24/25 01/25/25 01/25/25 18:59 06:59 18:59 Intake Total 360 Balance 360 Intake: Oral 360 Other: Voiding Method Toilet # Voids 5 2 - Labs CBC & Chem 7: 01/22/25 06:27 01/24/25 04:39 Labs: Abnormal Lab Results - Last 24 Hours (Table) 01/24/25 01/25/25 Range/Units 20:06 11:11 POC Glucose (mg/dL) 205 H 139 H (70-110) mg/dL Microbiology - Last 24 Hours (Table) 01/23/25 08:12 Gram Stain - Preliminary Toe - Right First Tissue Culture - Final Staphylococcus aureus 01/21/25 15:55 Blood Culture - Preliminary Blood 01/22/25 12:00 Blood Culture - Preliminary Blood 01/22/25 14:36 Anaerobic Culture - Preliminary Toe - Right First 01/22/25 14:36 Gram Stain - Preliminary Toe - Right First Wound Culture - Preliminary Presumptive Staph aureus Assessment and Plan Time with Patient: Less than 30
[2025-01-25 12:56] LABS: BUN/Creat Ratio 6.25 Ratio (12.00-20.00); Blood Urea Nitrogen 49.4 mg/dL (9.0-27.0); Calcium 8.6 mg/dL (8.7-10.3); Carbon Dioxide 25.5 mmol/L (21.6-31.8); Chloride 102 mmol/L (96-109); Glucose 89 mg/dL (70-110); Potassium 4.8 mmol/L (3.5-5.5); Sodium 140 mmol/L (135-145)
[2025-01-25 16:08] LABS: Glucose,Whole Blood 232 mg/dL (70-110)
[2025-01-25 19:56] LABS: Glucose,Whole Blood 134 mg/dL (70-110)
--- NOTE | 2025-01-25 23:08 | P.PN ---
Subjective Progress Note Date: 01/24/25 Principal diagnosis: Reason for follow-up with fever concerning for right big toe osteo- Patient is a 49-year-old male with a past medical history significant for diabetes mellitus hypertension reflux end-stage renal disease on dialysis in this patient who did have a right chest wall dialysis catheter as well as left arm fistula presented to hospital with a fever concerning for right big toe diabetic foot infected callus and underlying osteomyelitis. On today's evaluation that is 01/24/2025, patient did not have any fever and denies any chills, patient is breathing comfortably on room air, patient with no chest pain or cough patient did not have any abdominal pain nausea vomiting or any loose stools No CBC was done today Objective - Vital Signs Vital signs: Vital Signs Temp 97.8 F 01/24/25 07:16 Pulse 60 01/24/25 07:16 Resp 18 01/24/25 07:16 BP 122/73 01/24/25 07:16 Pulse Ox 97 01/24/25 07:16 FiO2 Intake & Output 01/23/25 01/24/25 01/24/25 18:59 06:59 18:59 Intake Total 400 Output Total 4400 Balance -4000 Intake: Hemodialysis 400 Output: Hemodialysis 2400 Hemodialysis Net Amount 2000 Other: Voiding Method Toilet # Voids 2 - Exam GENERAL DESCRIPTION: Middle-age male lying in bed in no distress RESPIRATORY SYSTEM: Unlabored breathing , decreased breath sounds at bases HEART: S1 S2 regular rate and rhythm , ABDOMEN: Soft , no tenderness EXTREMITIES: Right foot is currently dressed - Labs CBC & Chem 7: 01/22/25 06:27 01/25/25 03:58 Labs: Abnormal Lab Results - Last 24 Hours (Table) 01/23/25 01/23/25 01/24/25 Range/Units 16:55 20:15 04:39 Creatinine 6.44 H (0.66-1.25) mg/dL POC Glucose (mg/dL) 171 H 127 H (70-110) mg/dL 01/24/25 Range/Units 11:08 Creatinine (0.66-1.25) mg/dL POC Glucose (mg/dL) 151 H (70-110) mg/dL Microbiology - Last 24 Hours (Table) 01/22/25 14:36 Gram Stain - Preliminary Toe - Right First Wound Culture - Preliminary Presumptive Staph aureus 01/23/25 08:12 Gram Stain - Preliminary Toe - Right First Tissue Culture - Preliminary Presumptive Staph aureus 01/21/25 15:55 Blood Culture - Preliminary Blood 01/22/25 12:00 Blood Culture - Preliminary Blood Assessment and Plan (1) Sepsis Current Visit: Yes Status: Acute Code(s): A41.9 - SEPSIS, UNSPECIFIED ORGANISM SNOMED Code(s): 68483001 (2) Diabetic ulcer of right foot Current Visit: Yes Status: Acute Code(s): E11.621 - TYPE 2 DIABETES MELLITUS WITH FOOT ULCER; L97.519 - NON-PRS CHRONIC ULCER OTH PRT RIGHT FOOT W UNSP SEVERITY SNOMED Code(s): 299845589 (3) Osteomyelitis of great toe of right foot Current Visit: Yes Status: Acute Code(s): M86.9 - OSTEOMYELITIS, UNSPECIFIED SNOMED Code(s): 352325430 Plan: 1patient presented the hospital with sepsis in this patient who did have fever heart rate of 91 meeting criteria for SIRS source is likely right big toe diabetic foot infected callus and concern for underlying osteomyelitis as the patient did have significant abnormality seen on the clinical findings as well as the x-ray and will need to cover for the polymicrobial shyann associated with diabetic foot infection, the patient also have a right chest wall dialysis catheter which could be the source however the symptoms started before he was dialyzed making dialysis port with a less likely source of this infection 2-local culture has been obtained which is currently growing MSSA 3-patient has been evaluated by vascular surgery and status post debridement and deep culture 4-patient to continue with Unasyn and will discontinue vancomycin Dictation was produced using [employer] dictation software. please excuse any grammatical, word or spelling errors. Time with Patient: Less than 30
--- NOTE | 2025-01-25 23:09 | P.PN ---
Subjective Progress Note Date: 01/25/25 Principal diagnosis: Reason for follow-up with fever concerning for right big toe osteo- Patient is a 49-year-old male with a past medical history significant for diabetes mellitus hypertension reflux end-stage renal disease on dialysis in this patient who did have a right chest wall dialysis catheter as well as left arm fistula presented to hospital with a fever concerning for right big toe diabetic foot infected callus and underlying osteomyelitis. On today's evaluation that is 01/25/2025, Patient is afebrile patient is currently on room air and denies having any shortness of breath, the patient denies any chest pain or cough, the patient denies any nausea vomiting did not have any abdominal pain and no diarrhea. Patient did have creatinine of 7.9 no CBC was done today blood culture has been negative to culture with MSSA Objective - Vital Signs Vital signs: Vital Signs Temp 97.9 F 01/25/25 13:10 Pulse 70 01/25/25 13:10 Resp 16 01/25/25 13:10 BP 123/69 01/25/25 13:10 Pulse Ox 100 01/25/25 13:10 FiO2 Intake & Output 01/25/25 01/25/25 01/26/25 06:59 18:59 06:59 Intake Total 360 Balance 360 Intake: Oral 360 Other: Voiding Method Toilet # Voids 2 5 - Exam GENERAL DESCRIPTION: Middle-age male lying in bed in no distress RESPIRATORY SYSTEM: Unlabored breathing , decreased breath sounds at bases HEART: S1 S2 regular rate and rhythm , ABDOMEN: Soft , no tenderness EXTREMITIES: Right foot is currently dressed - Labs CBC & Chem 7: 01/22/25 06:27 01/25/25 03:58 Labs: Abnormal Lab Results - Last 24 Hours (Table) 01/25/25 01/25/25 01/25/25 Range/Units 03:58 11:11 16:06 Anion Gap 12.50 H (4.00-12.00) mmol/L BUN 49.4 H (9.0-27.0) mg/dL Creatinine 7.9 H (0.6-1.5) mg/dL Est GFR (CKD-EPI) 8 L (>=60) BUN/Creatinine Ratio 6.25 L (12.00-20.00) Ratio POC Glucose (mg/dL) 139 H 232 H (70-110) mg/dL Calcium 8.6 L (8.7-10.3) mg/dL 01/25/25 Range/Units 19:55 Anion Gap (4.00-12.00) mmol/L BUN (9.0-27.0) mg/dL Creatinine (0.6-1.5) mg/dL Est GFR (CKD-EPI) (>=60) BUN/Creatinine Ratio (12.00-20.00) Ratio POC Glucose (mg/dL) 134 H (70-110) mg/dL Calcium (8.7-10.3) mg/dL Microbiology - Last 24 Hours (Table) 01/22/25 12:00 Blood Culture - Preliminary Blood 01/23/25 08:12 Anaerobic Culture - Preliminary Toe - Right First 01/22/25 14:36 Anaerobic Culture - Preliminary Toe - Right First 01/23/25 08:12 Gram Stain - Preliminary Toe - Right First Tissue Culture - Final Staphylococcus aureus 01/21/25 15:55 Blood Culture - Preliminary Blood Assessment and Plan (1) Sepsis Current Visit: Yes Status: Acute Code(s): A41.9 - SEPSIS, UNSPECIFIED ORGANISM SNOMED Code(s): 17419849 (2) Diabetic ulcer of right foot Current Visit: Yes Status: Acute Code(s): E11.621 - TYPE 2 DIABETES MELLITUS WITH FOOT ULCER; L97.519 - NON-PRS CHRONIC ULCER OTH PRT RIGHT FOOT W UNSP SEVERITY SNOMED Code(s): 383060557 (3) Osteomyelitis of great toe of right foot Current Visit: Yes Status: Acute Code(s): M86.9 - OSTEOMYELITIS, UNSPECIFIED SNOMED Code(s): 641176082 Plan: 1patient presented the hospital with sepsis in this patient who did have fever heart rate of 91 meeting criteria for SIRS source is likely right big toe diabetic foot infected callus and concern for underlying osteomyelitis as the patient did have significant abnormality seen on the clinical findings as well as the x-ray and will need to cover for the polymicrobial shyann associated with diabetic foot infection, the patient also have a right chest wall dialysis catheter which could be the source however the symptoms started before he was dialyzed making dialysis port with a less likely source of this infection 2-local culture has been obtained which is currently growing MSSA 3-patient has been evaluated by vascular surgery and status post debridement and deep culture 4-patient to continue with Unasyn while inpatient however would recommend cefazolin postdialysis x 6 weeks to avoid placement of PICC line Dictation was produced using [employer] dictation software. please excuse any grammatical, word or spelling errors. Time with Patient: Less than 30
[2025-01-26 06:14] LABS: Glucose,Whole Blood 104 mg/dL (70-110)
[2025-01-26] MEDS: AMPICILLIN-SULBACTAM 3 GM in SODIUM CHLORIDE 0.9% 100 ML IVPB SCH (06:51)
[2025-01-26 08:05] VITALS: RESP 18
[2025-01-26 08:59] LABS: BUN/Creat Ratio 6.26 Ratio (12.00-20.00); Blood Urea Nitrogen 54.5 mg/dL (9.0-27.0); Calcium 8.6 mg/dL (8.7-10.3); Carbon Dioxide 24.2 mmol/L (21.6-31.8); Chloride 102 mmol/L (96-109); Glucose 88 mg/dL (70-110); Potassium 4.9 mmol/L (3.5-5.5); Sodium 142 mmol/L (135-145)
[2025-01-26 11:14] LABS: Glucose,Whole Blood 179 mg/dL (70-110)
--- NOTE | 2025-01-26 16:49 | P.PN ---
Subjective Patient is seen for follow-up for end-stage renal disease Right IJ permacath was discontinued No significant complaints today. Scheduled for hemodialysis today. Objective - Vital Signs Vital signs: Vital Signs Temp 97.7 F 01/26/25 07:15 Pulse 63 01/26/25 07:15 Resp 18 01/26/25 07:15 BP 155/87 01/26/25 07:15 Pulse Ox 99 01/26/25 07:15 FiO2 Intake & Output 01/25/25 01/26/25 01/26/25 18:59 06:59 18:59 Intake Total 1000 Balance 1000 Intake: Oral 1000 Other: Voiding Method Toilet # Voids 5 2 - Exam Patient is awake, comfortable, alert oriented x 3. Examination of the heart S1 and S2 Examination of the lungs bilateral breath sounds are heard Abdomen is soft nontender Examination of lower extremities shows no significant edema right foot is wrapped SIGNAL INSPECTOR exam grossly intact - Labs CBC & Chem 7: 01/22/25 06:27 01/26/25 03:10 Labs: Abnormal Lab Results - Last 24 Hours (Table) 01/25/25 01/26/25 01/26/25 Range/Units 19:55 03:10 11:12 Anion Gap 15.80 H (4.00-12.00) mmol/L BUN 54.5 H (9.0-27.0) mg/dL Creatinine 8.7 H (0.6-1.5) mg/dL Est GFR (CKD-EPI) 7 L (>=60) BUN/Creatinine Ratio 6.26 L (12.00-20.00) Ratio POC Glucose (mg/dL) 134 H 179 H (70-110) mg/dL Calcium 8.6 L (8.7-10.3) mg/dL Microbiology - Last 24 Hours (Table) 01/22/25 14:36 Gram Stain - Final Toe - Right First Wound Culture - Final Staphylococcus aureus Pasteurella canis oralis 01/22/25 14:36 Anaerobic Culture - Final Toe - Right First 01/22/25 12:00 Blood Culture - Preliminary Blood 01/23/25 08:12 Anaerobic Culture - Preliminary Toe - Right First Assessment and Plan Assessment: 1. End-stage renal disease maintained on hemodialysis on Sunday schedule. Permacath was removed as patient has a functioning AV fistula. 2. Fever and chills with right foot wound as possible source for infection. 3. Hyperkalemia secondary to chronic kidney disease. Improved postdialysis. 4. Metabolic acidosis secondary to chronic kidney disease. Improved po stdialysis. 5. Anemia of chronic kidney disease. On Aranesp. 6. Hypertension with chronic kidney disease. Stable. 7. Chronic kidney disease mineral bone disease maintained on PhosLo. Phosphorus level 2.6, repeat phosphorus was 3.1 Plan: Hemodialysis today Continue antibiotics as per ID
[2025-01-26] MEDS: ceFAZolin 2 GM in DEXTROSE 5% IN WATER 50 ML IVPB ONE (17:00)
[2025-01-26 18:25] VITALS: BP 147/92; PULSE 64; TEMP 98
--- NOTE | 2025-01-27 12:57 | P.PN ---
Subjective Progress Note Date: 01/26/25 Principal diagnosis: Reason for follow-up with fever concerning for right big toe osteo- Patient is a 49-year-old male with a past medical history significant for diabetes mellitus hypertension reflux end-stage renal disease on dialysis in this patient who did have a right chest wall dialysis catheter as well as left arm fistula presented to hospital with a fever concerning for right big toe diabetic foot infected callus and underlying osteomyelitis. On today's evaluation that is 01/26/2025, patient has been afebrile, patient is breathing comfortably and is currently on room air, patient denies having any chest pain and cough, patient denies nausea vomiting or diarrhea and no abdominal pain or pain to the right big toe. Patient did have a creatinine of 8.7 blood pressure have been negative local culture with Staph aureus anaerobe cultures pending Objective - Vital Signs Vital signs: Vital Signs Temp 97.7 F 01/26/25 07:15 Pulse 63 01/26/25 07:15 Resp 18 01/26/25 07:15 BP 155/87 01/26/25 07:15 Pulse Ox 99 01/26/25 07:15 FiO2 Intake & Output 01/25/25 01/26/25 01/26/25 18:59 06:59 18:59 Intake Total 1000 Balance 1000 Intake: Oral 1000 Other: Voiding Method Toilet # Voids 5 2 - Exam GENERAL DESCRIPTION: Middle-age male lying in bed in no distress RESPIRATORY SYSTEM: Unlabored breathing , decreased breath sounds at bases HEART: S1 S2 regular rate and rhythm , ABDOMEN: Soft , no tenderness EXTREMITIES: Right foot is currently dressed - Labs CBC & Chem 7: 01/22/25 06:27 01/26/25 03:10 Labs: Abnormal Lab Results - Last 24 Hours (Table) 01/25/25 01/25/25 01/25/25 Range/Units 03:58 11:11 16:06 Anion Gap 12.50 H (4.00-12.00) mmol/L BUN 49.4 H (9.0-27.0) mg/dL Creatinine 7.9 H (0.6-1.5) mg/dL Est GFR (CKD-EPI) 8 L (>=60) BUN/Creatinine Ratio 6.25 L (12.00-20.00) Ratio POC Glucose (mg/dL) 139 H 232 H (70-110) mg/dL Calcium 8.6 L (8.7-10.3) mg/dL 01/25/25 01/26/25 Range/Units 19:55 03:10 Anion Gap 15.80 H (4.00-12.00) mmol/L BUN 54.5 H (9.0-27.0) mg/dL Creatinine 8.7 H (0.6-1.5) mg/dL Est GFR (CKD-EPI) 7 L (>=60) BUN/Creatinine Ratio 6.26 L (12.00-20.00) Ratio POC Glucose (mg/dL) 134 H (70-110) mg/dL Calcium 8.6 L (8.7-10.3) mg/dL Microbiology - Last 24 Hours (Table) 01/22/25 12:00 Blood Culture - Preliminary Blood 01/23/25 08:12 Anaerobic Culture - Preliminary Toe - Right First 01/22/25 14:36 Anaerobic Culture - Preliminary Toe - Right First 01/23/25 08:12 Gram Stain - Preliminary Toe - Right First Tissue Culture - Final Staphylococcus aureus Assessment and Plan (1) Sepsis Status: Acute Code(s): A41.9 - SEPSIS, UNSPECIFIED ORGANISM SNOMED Code(s): 85133331 (2) Diabetic ulcer of right foot Status: Acute Code(s): E11.621 - TYPE 2 DIABETES MELLITUS WITH FOOT ULCER; L97.519 - NON-PRS CHRONIC ULCER OTH PRT RIGHT FOOT W UNSP SEVERITY SNOMED Code(s): 124805920 (3) Osteomyelitis of great toe of right foot Status: Acute Code(s): M86.9 - OSTEOMYELITIS, UNSPECIFIED SNOMED Code(s): 937773610 Plan: 1patient presented the hospital with sepsis in this patient who did have fever heart rate of 91 meeting criteria for SIRS source is likely right big toe diabetic foot infected callus and concern for underlying osteomyelitis as the patient did have significant abnormality seen on the clinical findings as well as the x-ray and will need to cover for the polymicrobial shyann associated with diabetic foot infection, the patient also have a right chest wall dialysis catheter which could be the source however the symptoms started before he was dialyzed making dialysis port with a less likely source of this infection 2-local culture has been obtained which is currently growing MSSA 3-patient has been evaluated by vascular surgery and status post debridement and deep culture which grew MSSA 4-patient has been advised cefazolin postdialysis x 6 weeks to avoid placement of PICC line prescription provided to the case finishing machine adjuster Dictation was produced using [employer] dictation software. please excuse any grammatical, word or spelling errors. Time with Patient: Less than 30
== END 2025-01-26 17:58 | disposition home health service (06) | DRG 853 ==
LOC: EC 14:39 → 4SSUR 19:18 → OBSVTOIN 19:19 → 4SSUR 22:04
PROVIDERS: ADMIT Hospitalist; ATTEND Hospitalist
PROC: 0JBQ0ZZ Excision of Right Foot Subcutaneous Tissue and Fascia, Open Approach (ICD-10-PCS; principal; 2025-01-23)
PROC: 5A1D70Z Performance of Urinary Filtration, Intermittent, Less than 6 Hours Per Day (ICD-10-PCS; 2025-01-23)
DX: A41.9 Sepsis, unspecified organism (principal); N18.6 End stage renal disease; E87.20 Acidosis, unspecified; I12.0 Hypertensive chronic kidney disease with stage 5 chronic kidney disease or end stage renal disease; M86.8X7 Other osteomyelitis, ankle and foot; D63.1 Anemia in chronic kidney disease; Z99.2 Dependence on renal dialysis; E11.22 Type 2 diabetes mellitus with diabetic chronic kidney disease; Z68.37 Body mass index [BMI] 37.0-37.9, adult; F32.A Depression, unspecified; L03.115 Cellulitis of right lower limb; Z16.24 Resistance to multiple antibiotics; L02.611 Cutaneous abscess of right foot; E11.42 Type 2 diabetes mellitus with diabetic polyneuropathy; E11.621 Type 2 diabetes mellitus with foot ulcer; E11.69 Type 2 diabetes mellitus with other specified complication; L97.519 Non-pressure chronic ulcer of other part of right foot with unspecified severity; Z11.52 Encounter for screening for COVID-19; L03.031 Cellulitis of right toe; E87.5 Hyperkalemia; M89.8X9 Other specified disorders of bone, unspecified site; E66.9 Obesity, unspecified; Z79.85 Long-term (current) use of injectable non-insulin antidiabetic drugs; Z79.899 Other long term (current) drug therapy; Z86.14 Personal history of Methicillin resistant Staphylococcus aureus infection
CPT/HCPCS: 36415; 71046; 80048; 80053; 80202; 82565; 83605; 83735; 84100; 85025; 85652; 86140; 87040; 87070; 87075; 87077; 87186; 87205; 87636; 90935; 93005; 99285

== ENCOUNTER 2025-01-28 06:12 | Emergency (ER) | payer BC ==
[2025-01-28 06:16] VITALS: RESP 18
--- NOTE | 2025-01-28 06:39 | ED ---
Skin/Abscess/FB HPI - General Chief complaint: Skin/Abscess/Foreign Body Stated complaint: Rash on arms Time Seen by Provider: 01/28/25 06:16 Source: patient, RN notes reviewed Mode of arrival: ambulatory Limitations: no limitations - History of Present Illness Initial comments: 49-year-old male presents emergency department chief complaint of left hand rash. He states not painful or itchy. Patient states noticed on last night worsened to morning. He denies current antibiotics for skin infection. Patient states he goes to dialysis today denies any chest pain shortness of breath elevated chills denies any difficulty breathing no other associated symptoms. - Related Data Home Medications Medication Instructions Recorded Confirmed Atorvastatin [Lipitor] 20 mg PO HS 05/09/16 01/21/25 Sertraline HCl [Zoloft] 100 mg PO BID 08/13/17 01/21/25 amLODIPine BESYLATE [Norvasc] 10 mg PO DAILY 08/13/17 01/21/25 Ergocalciferol (Vitamin D2) 1,250 mcg PO MOWEFR 08/18/24 01/21/25 [Drisdol (50,000 Iu)] ALPRAZolam [Xanax] 0.25 mg PO DIRECTED 01/21/25 01/21/25 Calcium Acetate 667mg Capsule 1,334 mg PO TID-W/MEALS 01/21/25 01/21/25 Renaplex-D 1 tab PO DAILY 01/21/25 01/21/25 Tenapanor HCl [Xphozah] 30 mg PO AC-BRKFST 01/21/25 01/21/25 lisinopriL 40 mg PO DAILY 01/21/25 01/21/25 Previous Rx's Medication Instructions Recorded Famotidine [Pepcid] 20 mg PO HS #30 tab 01/26/25 Levofloxacin [Levaquin] 500 mg PO DAILY #15 tablet 01/27/25 Allergies Allergy/AdvReac Type Severity Reaction Status Date / Time No Known Allergies Allergy Verified 01/28/25 06:16 Review of Systems ROS Statement: Those systems with pertinent positive or pertinent negative responses have been documented in the HPI. ROS Other: All systems not noted in ROS Statement are negative. Past Medical History Past Medical History: Diabetes Mellitus, GERD/Reflux, Hypertension, Renal Disease Additional Past Medical History / Comment(s): . History of Any Multi-Drug Resistant Organisms: None Reported, MRSA Date of last positivie culture/infection: 02/22/2016 MDRO Source:: left foot Past Surgical History: Bariatric Surgery, Orthopedic Surgery Additional Past Surgical History / Comment(s): , amputation of smallest toe on lt foot, amputation of the 4th toe on the right foot Past Anesthesia/Blood Transfusion Reactions: No Reported Reaction Past Psychological History: Depression Smoking Status: Never smoker Past Alcohol Use History: Occasional Past Drug Use History: None Reported - Past Family History Brother(s) Family Medical History: Cancer Father Family Medical History: Cancer Mother Family Medical History: Coronary Artery Disease (CAD), Deep Vein Thrombosis (DVT) General Exam Limitations: no limitations General appearance: alert, in no apparent distress Head exam: Present: atraumatic, normocephalic, normal inspection Eye exam: Present: normal appearance, PERRL, EOMI. Absent: scleral icterus, conjunctival injection, periorbital swelling ENT exam: Present: normal exam, normal oropharynx, mucous membranes moist Neck exam: Present: normal inspection. Absent: tenderness, meningismus, lymphadenopathy Respiratory exam: Present: normal lung sounds bilaterally. Absent: respiratory distress, wheezes, rales, rhonchi, stridor Cardiovascular Exam: Present: regular rate, normal rhythm, normal heart sounds. Absent: systolic murmur, diastolic murmur, rubs, gallop, clicks Skin exam: Present: rash (Petechial rash left hand no open lesions or sores there is a fistula noted on the distal forearm left with palpable thrill) Course Vital Signs 01/28/25 06:13 Temperature 97.8 F Pulse Rate 88 Respiratory 18 Rate Blood Pressure 168/91 O2 Sat by Pulse 100 Oximetry Medical Decision Making - Medical Decision Making Was pt. sent in by a medical professional or institution (, PA, ORDER ENTRY CLERK, urgent care, hospital, or retirement...) When possible be specific @ -No Did you speak to anyone other than the patient for history (EMS, parent, family, police, friend...)? What history was obtained from this source @ -No Did you review nursing and triage notes (agree or disagree)? Why? @ -I reviewed and agree with nursing and triage notes Were old charts reviewed (outside hosp., previous admission, EMS record, old EKG, old radiological studies, urgent care reports/EKG's, retirement records)? Report findings @ -No old charts were reviewed Differential Diagnosis (chest pain, altered mental status, abdominal pain women, abdominal pain men, vaginal bleeding, weakness, fever, dyspnea, syncope, headache, dizziness, GI bleed, back pain, seizure, CVA, palpatations, mental health, musculoskeletal)? @ -Contact dermatitis, petechia, allergic reaction, scabies, EKG interpreted by me (3pts min.). @ -None X-rays interpreted by me (1pt min.). @ -None done CT interpreted by me (1pt min.). @ -None done U/S interpreted by me (1pt. min.). @ -None done What testing was considered but not performed or refused? (CT, X-rays, U/S, labs)? Why? @ -None What meds were considered but not given or refused? Why? @ -None Did you discuss the management of the patient with other professionals (silvestre cespedes i.eSarath Collado, PA, ORDER ENTRY CLERK, lab, RT, psych nurse, social contact worker, car dumper, teacher, community arts officer, case management social worker)? Give summary @ -No Was smoking cessation discussed for >3mins.? @ -No Was critical care preformed (if so, how long)? @ -No Were there social determinants of health that impacted care today? How? (Homelessness, low income, unemployed, alcoholism, drug addiction, transportation, low edu. Level, literacy, decrease access to med. care, halfway, rehab)? @ -No Was there de-escalation of care discussed even if they declined (Discuss DNR or withdrawal of care, Hospice)? DNR status @ -No What co-morbidities impacted this encounter? (DM, HTN, Smoking, COPD, CAD, Cancer, CVA, ARF, Chemo, Hep., AIDS, mental health diagnosis, sleep apnea, morbid obesity)? @ -None Was patient admitted / discharged? Hospital course, mention meds given and route, prescriptions, significant lab abnormalities, going to OR and other pertinent info. @ -Patient presented for rash of left hand. Says. Petechial without any other signs of bleeding platelet count is within normal limits. We discussed possible contact, allergic type symptoms patient will have close monitoring and return parameters discussed. Undiagnosed new problem with uncertain prognosis? @ -No Drug Therapy requiring intensive monitoring for toxicity (Heparin, Nitro, Insulin, Cardizem)? @ -No Were any procedures done? @ -No Diagnosis/symptom? @ -Petechial rash Acute, or Chronic, or Acute on Chronic? @ -Acute Uncomplicated (without systemic symptoms) or Complicated (systemic symptoms)? @ -Uncomplicated Side effects of treatment? @ -No Exacerbation, Progression, or Severe Exacerbation? @ -No Poses a threat to life or bodily function? How? (Chest pain, USA, OR, pneumonia, PE, COPD, DKA, ARF, appy, cholecystitis, CVA, Diverticulitis, Homicidal, Suicidal, threat to staff... and all critical care pts) @ -No - Lab Data Result diagrams: 01/28/25 06:37 Lab Results 01/28/25 Range/Units 06:37 WBC 7.07 (4.50-10.00) 10*3/uL RBC 3.66 L (4.40-5.60) 10*6/uL Hgb 11.5 L (13.0-17.0) g/dL Hct 34.4 L (39.6-50.0) % MCV 94.0 (80.0-97.0) fL MCH 31.4 (27.0-32.0) pg MCHC 33.4 (32.0-37.0) g/dL Plt Count 143 (140-440) 10*3/uL MPV 10.0 (9.5-12.2) fL Immature Gran % (Auto) 1.7 % Neutrophils % 71.3 % Lymphocytes % 16.5 % Monocytes % 6.1 % Eosinophils % 3.7 % Basophils % 0.7 % Immature Gran # 0.12 H (0.00-0.04) 10*3/uL Neutrophils # 5.04 (1.80-7.70) 10*3/uL Lymphocytes # 1.17 (0.90-5.00) 10*3/uL Monocytes # 0.43 (0.20-1.00) 10*3/uL Eosinophils # 0.26 (0.04-0.35) 10*3/uL Basophils # 0.05 (0.00-0.10) 10*3/uL Disposition Clinical Impression: Petechial rash Disposition: HOME SELF-CARE Condition: Stable Instructions (If sedation given, give patient instructions): Man (ED) Additional Instructions: Please return to the Emergency Department if symptoms worsen or any other concerns. Is patient prescribed a controlled substance at d/c from ED?: No Referrals: Alhaji Alvarado MD [Primary Care Provider] - 1-2 days Time of Disposition: 06:56
[2025-01-28 06:44] LABS: Basophils # (A) 0.05 10*3/uL (0.00-0.10); Basophils % (A) 0.7 %; Eosinophils # (A) 0.26 10*3/uL (0.04-0.35); Eosinophils % (A) 3.7 %; HCT 34.4 % (39.6-50.0); HGB 11.5 g/dL (13.0-17.0); Lymphocytes # (A) 1.17 10*3/uL (0.90-5.00); Lymphocytes % (A) 16.5 %; MCH 31.4 pg (27.0-32.0); MCHC 33.4 g/dL (32.0-37.0); Monocytes # (A) 0.43 10*3/uL (0.20-1.00); Monocytes % (A) 6.1 %; Neutrophils # (A) 5.04 10*3/uL (1.80-7.70); Neutrophils % (A) 71.3 %; Platelet Count 143 10*3/uL (140-440); RBC 3.66 10*6/uL (4.40-5.60); RDW 13.8 % (11.5-14.5); WBC 7.07 10*3/uL (4.50-10.00)
[2025-01-28 07:00] VITALS: BP 154/76; PULSE 75; TEMP 98
== END 2025-01-28 06:59 | disposition home or self-care (01) ==
LOC: EC 06:12
DX: R23.3 Spontaneous ecchymoses (principal)
CPT/HCPCS: 36415; 85025; 99283

== ENCOUNTER → 2025-02-10 | Outpatient (CLI) | payer BC | END | disposition home or self-care (01) | LOC: LABWHC1 15:37 | PROVIDERS: ATTEND Internal Medicine Infectious Disease | DX: M86.9 Osteomyelitis, unspecified (principal) | CPT/HCPCS: 36415; 86140 ==

== ENCOUNTER → 2025-02-17 | Outpatient (CLI) | payer BC ==
[2025-02-17 20:46] LABS: BUN/Creat Ratio 7.91 Ratio (12.00-20.00); Blood Urea Nitrogen 52.2 mg/dL (9.0-27.0); Carbon Dioxide 27.6 mmol/L (21.6-31.8); Chloride 101 mmol/L (96-109); Glucose 99 mg/dL (70-110); Potassium 4.7 mmol/L (3.5-5.5); Sodium 143 mmol/L (135-145)
== END | disposition home or self-care (01) ==
LOC: LABWHC1 13:59
PROVIDERS: ATTEND Internal Medicine Infectious Disease
DX: M86.9 Osteomyelitis, unspecified (principal)
CPT/HCPCS: 36415; 80048